=== PATIENT | female | born 1945 | race Caucasian/White ===

== ENCOUNTER 2024-11-24 17:51 | Emergency (ER) | payer MEDICARE, SELFPAY ==
--- OUTSIDE RECORDS SUMMARY | 2016-04-18 11:49 | XMS_ITS | Encounter Summary ---
Author Organization [facility] Address [address] [place] [address] Care Team Providers Care Bridge Instructor Name Role Phone Iron Lynn MD Primary Care Provider + Encounter Details Date Type Department Care Team (Late st Contact Info) Description 04/18/2016 10:49 AM EST Hospital Encounter [facility] PULMONARY & CRITICAL CARE MEDICINE [address] [place] [address] Social History Tobacco Use Types Packs/Day Years Used Date Smoking Tobacco: Former Cigarettes 1 3 0 10/03/1999 - 10/02/2002 Passive Smoke Exposure: Past Smokeless Tobacco: Never Alcohol Use Standard Drinks/Week Comments No 0 (1 standard drink = 0.6 oz pur e alcohol) PHQ-2 Answer Date Recorded Retired PHQ-9: Brief Depression Severity Measure Score 0 02/19/2023 Abuse Screen Answer Date Recorded Feels Unsafe at Home or Work/School no 11/04/2024 Feels Threatened by Someone no 10/08 Does Anyone Try to Keep You From Having Contact with Others or Doing Things Outside Your Home? no 11/04/2024 Physical Signs of Abuse Present no 11/04/2024 Education Answer Date Recorded Help with school or training? Not on file Preferred Language German 11/04/2024 PHQ-2 Answer Date Recorded Retired PHQ-9: Brief Depression Severity Measure Score 0 02/19/2023 Comments No Sex and Gender Information Value Date Recorded Sex Assigned at Not on file Legal Sex Female 10:51 AM EDT Gender Identity Not on file Sexual Orientation Not on file documented as of this encounter Plan of Treatment Upcoming Encounters Date Type Department Care Team (Late st Contact Info) Description 01/25/2025 1:30 PM EDT Office Visit [facility] END[facility]CRINOLOGY [address] [facility] [address] [place] [address] Ahsan Alonso MD [address] [facility] [address] [place], [place] [id number] 10/14/2025 1:30 PM EDT Office Visit [facility] CARDIOLOGY [address] [place] [address] Hima Gonzalez MD [address] [facility] [address] [place] [address] documented as of this encounter Procedures Procedure Name Priority Date/Time Associated Diagnosis Comments XR CHEST PA AND LATERAL Routine 04/18/2016 11:35 AM EST SOB (shortness of breath) documented in this encounter Results * XR Chest PA & Lateral (04/18/2016 11:35 AM EST) Narrative Jasmin Ingram MA - 04/18/2016 12:12 PM EST Results sent to project management consultant, signed report will be scanned into [employer] once available. Please see performing physicians notes. Lynda Durham APRN IMG DIAGNOSTIC IMAGING ORDER ERI Final Result documented in this encounter Visit Diagnoses Not on filedocumented in this encounter Additional Health Concerns Infection Onset Date Last Indicated Resolved Time COVID (rule out) 03/08/2020 03/09/2020 03/15/2020 9:10 PM EST COVID (rule out) 03/10/2021 03/13/2021 03/17/2021 9:08 PM EST documented as of this encounter Care Teams Bridge Instructor Relationship Specialty Start Date End Date Iron Lynn MD [address] [place] [id number] PCP - General 11/18/14 08/11/17 documented as of this encounter
--- OUTSIDE RECORDS SUMMARY | 2018-02-13 10:58 | XMS_ITS | Encounter Summary ---
[facility] Organization [facility] Address [address] [place] [address] Care Team Providers Care Critical Care Specialist Name Role Phone Consuelo Arroyo MD Primary Care Provider + Encounter Details Date Type Department Care Team (Late st Contact Info) Description 02/13/2018 9:58 AM EST Hospital Encounter [facility] PULMONARY & CRITICAL CARE MEDICINE [address] [place] [phone] Social History Tobacco Use Types Packs/Day Years [...] or training? Not on file Preferred Language Stateless 11/04/2024 PHQ-2 Answer Date Recorded Retired PHQ-9: [...] Description 01/25/2025 1:30 PM EDT Office Visit [facility] ENDOCRINOLOGY [address] [facility] [address] [place] [phone] Ahsan Alonso MD [address] [facility] [address] [place], [place] [id number] 10/14/2025 1:30 PM EDT Office Visit [facility] CARDIOLOGY [address] [place] [address] [place] [address] Hima Gonzalez MD [address] [facility] [address] [place] [address] Pending Results Name Type Priority Associated Diagnoses Date /Time XR Chest PA & Lateral Imaging Routine SOB (shortness of breath) 02/13/2018 10:11 AM EST documented as of this encounter Visit Diagnoses Not on filedocumented in this encounter Additional Health Concerns Infection Onset Date Last Indicated Resolved Time COVID (rule out) 03/08/2020 03/09/2020 03/15/2020 9:10 PM EST COVID (rule out) 03/10/2021 03/13/2021 03/17/2021 9:08 PM EST documented as of this encounter Care Teams Critical Care Specialist Relationship Specialty Start Date End Date Consuelo Arroyo MD [address] [place] [id number] PCP - General Internal Medicine 02/13/18 documented as of this encounter
--- OUTSIDE RECORDS SUMMARY | 2019-09-01 14:40 | XMS_ITS | Encounter Summary ---
[facility] Address [address] [place] [address] Care Team Providers Care Coil Winder Repair Name Role Phone Consuelo Arroyo MD Primary Care Provider + Encounter Details Date Type Department Care Team (Late st Contact Info) Description 09/01/2019 2:40 PM EDT Hospital Encounter [facility] PULMONARY & CRITICAL CARE MEDICINE [address] [place] [phone] Social History Tobacco Use Types Packs/Day Years [...] or training? Not on file Preferred Language Japanese 11/04/2024 PHQ-2 Answer Date Recorded Retired PHQ-9: [...] Description 01/25/2025 1:30 PM EDT Office Visit [facility] ENDOCRINOLOGY [address] [facility] [address] [place] [address] Ahsan Alonso MD [address] [facility] [address] [place], [place] [id number] 10/14/2025 1:30 PM EDT Office Visit [facility] CARDIOLOGY [address] [place] [address] [place] [address] Hima Gonzalez MD [address] [facility] [address] [place] [address] documented as of this encounter Procedures Procedure Name Priority Date/Time Associated Diagnosis Comments XR CHEST PA AND LATERAL Routine 09/01/2019 2:50 PM EDT Asthma, unspecified asthma severity, unspecified whether complicated, unspecified whether persistent documented in this encounter Results * XR Chest PA & Lateral (09/01/2019 2:50 PM EDT) Anatomical Region Laterality Modality Body, Chest N/A Radiographic Alaina ging 09/02/2019 9:55 AM EDT Impressions 09/02/2019 5:12 PM EDT No acute cardiopulmonary process. E: 09/02/2019 This report was finalized on 09/02/2019 5:[address] Sanjeev Mcgee. Narrative 09/02/2019 5:12 PM EDT EXAMINATION: XR CHEST PA AND LATERAL- INDICATION: J45.909-Unspecified asthma, uncomplicated. COMPARISON: Chest x-ray dated 02/13/2018. FINDINGS: Cardiac size within normal limits. Pulmonary vascularity within normal limits. No focal opacification or consolidation. No pneumothorax or pleural effusion. Degenerative changes of the spine. Procedure Note Sanjeev Mcgee DO - 09/02/2019 EXAMINATION: XR CHEST PA AND LATERAL- INDICATION: J45.909-Unspecified asthma, uncomplicated. COMPARISON: Chest x-ray dated 02/13/2018. FINDINGS: Cardiac size within normal limits. Pulmonary vascularity within normal limits. No focal opacification or consolidation. No pneumothorax or pleural effusion. Degenerative changes of the spine. IMPRESSION: No acute cardiopulmonary process. E: 09/02/2019 This report was finalized on 09/02/2019 5:[address] Sanjeev Mcgee. Lynda Durham APRN IMG DIAGNOSTIC IMAGING ORDER ERI Final Result documented in this encounter Visit Diagnoses Not on filedocumented in this encounter Additional Health Concerns Infection Onset Date Last Indicated Resolved Time COVID (rule out) 03/08/2020 03/09/2020 03/15/2020 9:10 PM EST COVID (rule out) 03/10/2021 03/13/2021 03/17/2021 9:08 PM EST documented as of this encounter Care Teams Coil Winder Repair Relationship Specialty Start Date End Date Consuelo Arroyo MD [address] [place] [address] PCP - General Internal Medicine 02/13/18 documented as of this encounter
--- OUTSIDE RECORDS SUMMARY | 2021-03-15 13:46 | XMS_ITS | Encounter Summary ---
[facility] Address [address] [place] [address] Care Team Providers Care Production Hand Name Role Phone Consuelo Arroyo MD Primary Care Provider + Encounter Details Date Type Department Care Team (Late st Contact Info) Description 03/15/2021 12:46 PM EST Hospital Encounter [facility] PULMONARY & CRITICAL CARE MEDICINE [address] [place] [phone] Social History Tobacco Use Types Packs/Day Years [...] or training? Not on file Preferred Language Welsh 11/04/2024 PHQ-2 Answer Date Recorded Retired PHQ-9: [...] Description 01/25/2025 1:30 PM EDT Office Visit [facility] ENDOCRINOLOGY [address] [facility] [address] [place] [address] Ahsan Alonso MD [address] [facility] [address] [place], [place] [phone] 10/14/2025 1:30 PM EDT Office Visit [facility] CARDIOLOGY [address] [place] [address] Hima Gonzalez MD [address] [facility] [address] [place] [address] documented as of this encounter Procedures Procedure Name Priority Date/Time Associated Diagnosis Comments XR CHEST PA AND LATERAL Routine 03/15/2021 1:12 PM EST Moderate persistent asthma without complication documented in this encounter Results * XR Chest PA & Lateral (03/15/2021 1:12 PM EST) Anatomical Region Laterality Modality Body, Chest N/A Radiographic Alaina ging 03/16/2021 10:5 1 AM EST Impressions 03/17/2021 3:54 PM EST No acute cardiopulmonary process. E: 03/16/2021 This report was finalized on 03/17/2021 3:[address] Sanjeev Mcgee. Narrative 03/17/2021 3:54 PM EST EXAMINATION: XR CHEST PA AND LATERAL- 03/15/2021 INDICATION: SEE DIAGNOSIS; J45.40-Moderate persistent asthma, uncomplicated COMPARISON: Chest x-ray 09/01/2019 FINDINGS: PA and lateral views of the chest reveal cardiac size within normal limits. Pulmonary vascularity within normal limits. No focal opacification or consolidation. No pneumothorax or pleural effusion. Degenerative changes of the spine. Procedure Note Sanjeev Mcgee DO - 03/17/2021 EXAMINATION: XR CHEST PA AND LATERAL- 03/15/2021 INDICATION: SEE DIAGNOSIS; J45.40-Moderate persistent asthma, uncomplicated COMPARISON: Chest x-ray 09/01/2019 FINDINGS: PA and lateral views of the chest reveal cardiac size within normal limits. Pulmonary vascularity within normal limits. No focal opacification or consolidation. No pneumothorax or pleural effusion. Degenerative changes of the spine. IMPRESSION: No acute cardiopulmonary process. E: 03/16/2021 This report was finalized on 03/17/2021 3:[address] Sanjeev Mcgee. Lynda Durham APRN IMG DIAGNOSTIC IMAGING ORDER ERI Final Result documented in this encounter Visit Diagnoses Not on filedocumented in this encounter Additional Health Concerns Infection Onset Date Last Indicated Resolved Time COVID (rule out) 03/10/2021 03/13/2021 03/17/2021 9:08 PM EST documented as of this encounter Care Teams Production Hand Relationship Specialty Start Date End Date Consuelo Arroyo MD [address] [place] [address] PCP - General Internal Medicine 02/13/18 documented as of this encounter
--- OUTSIDE RECORDS SUMMARY | 2021-08-25 08:39 | XMS_ITS | Encounter Summary ---
[facility] Address [address] [place] [address] Care Team Providers Care Packing Checker Name Role Phone Consuelo Arroyo MD Primary Care Provider + Encounter Details Date Type Department Care Team (Late st Contact Info) Description 08/25/2021 8:39 AM EDT Hospital Encounter [facility] PULMONARY & CRITICAL CARE MEDICINE [address] [place] [phone] Social History Tobacco Use Types Packs/Day Years [...] or training? Not on file Preferred Language Malian 11/04/2024 PHQ-2 Answer Date Recorded Retired PHQ-9: [...] Description 01/25/2025 1:30 PM EDT Office Visit [facility] ENDOCRINOLOG[facility] [address] [facility] [address] [place] [address] Ahsan Alonso MD [address] [facility] [address] [place], [place] [phone] 10/14/2025 1:30 PM EDT Office Visit [facility] CARDIOLOGY [address] [place] [address] [place] [address] Hima Gonzalez MD [address] [facility] [address] [place] [address] documented as of this encounter Procedures Procedure Name Priority Date/Time Associated Diagnosis Comments XR CHEST PA AND LATERAL Routine 08/25/2021 8:44 AM EDT Cough documented in this encounter Results * XR Chest PA & Lateral (08/25/2021 8:44 AM EDT) Anatomical Region Laterality Modality Body, Chest N/A Radiographic Alaina ging 08/25/2021 8:49 AM EDT Impressions 08/25/2021 8:50 AM EDT No acute process. This report was finalized on 08/25/2021 8:50 AM by Amari Boston MD. Narrative 08/25/2021 8:50 AM EDT DATE OF EXAM: 08/25/2021 8:39 AM PROCEDURE: XR CHEST PA AND LATERAL- INDICATIONS: SEE DIAGNOSIS; R05.9-Cough, unspecified COMPARISON: 03/15/2021 TECHNIQUE: PA and lateral views of the chest were obtained. FINDINGS: The cardiomediastinal silhouette is within normal limits. The lungs are clear. There is no pneumothorax, focal consolidation, or large pleural effusion. Osseous structures grossly intact. Small pulmonary nodules better assessed on prior chest CT. Procedure Note Amari Boston MD - 08/25/2021 DATE OF EXAM: 08/25/2021 8:39 AM PROCEDURE: XR CHEST PA AND LATERAL- INDICATIONS: SEE DIAGNOSIS; R05.9-Cough, unspecified COMPARISON: 03/15/2021 TECHNIQUE: PA and lateral views of the chest were obtained. FINDINGS: The cardiomediastinal silhouette is within normal limits. The lungs are clear. There is no pneumothorax, focal consolidation, or large pleural effusion. Osseous structures grossly intact. Small pulmonary nodules better assessed on prior chest CT. IMPRESSION: No acute process. This report was finalized on 08/25/2021 8:50 AM by Amari Boston MD. Lynda Durham FISH AND WILDLIFE BIOLOGIST IMG DIAGNOSTIC IMAGING ORDER ERI Final Result documented in this encounter Visit Diagnoses Not on filedocumented in this encounter Care Teams Packing Checker Relationship Specialty Start Date End Date Consuelo Arroyo MD [address] [place] [address] PCP - General Internal Medicine 02/13/18 documented as of this encounter
--- OUTSIDE RECORDS SUMMARY | 2024-07-02 11:15 | XMS_ITS | Encounter Summary ---
Author Organization [facility] Address [address] [place] [address] Care Team Providers Care Brim Molder Name Role Phone Consuelo Arroyo MD Primary Care Provider + Reason for Visit * Reason Comments BATES (dyspnea on exertion) Patient compla ins of shortness of breath Encounter Details Date Type Department Care Team (Late st Contact Info) Description 07/02/2024 11:15 AM EDT Office Visit [facility] CARDIOLOGY [address] [place] [address] Hima Gonzalez MD [address] [facility] [address] [place] [address] BATES (dyspnea on exertion) (Primary Dx); Dyslipidemia; Localized edema; Type 2 diabetes mellitus with complication, with long-term current use of insulin; IgG1 subclass deficiency Social History Tobacco Use Types Packs/Day Years Used Date Smoking Tobacco: Former Cigarettes 1 3 0 10/03/1999 - 10/02/2002 Passive Smoke Exposure: Past Smokeless Tobacco: Never Alcohol Use Standard Drinks/Week Comments No 0 (1 standard drink = 0.6 oz pur e alcohol) PHQ-2 Answer Date Recorded Retired PHQ-9: Brief Depression Severity Measure Score 0 02/19/2023 PHQ-2 Answer Date Recorded Retired PHQ-9: Brief Depression Severity Measure Score 0 02/19/2023 Comments No Sex and Gender Information Value Date Recorded Sex Assigned at Not on file Legal Sex Female 10:51 AM EDT Gender Identity Not on file Sexual Orientation Not on file documented as of this encounter Last Filed Vital Signs Vital Sign Reading Time Taken Comments Blood Pressure 124/60 07/02/2024 11:24 AM EDT Pulse 70 07/02/2024 11:24 AM EDT Temperature - - Respiratory Rate - - Oxygen Saturation 98% 07/02/2024 11:24 AM EDT Inhaled Oxygen Concentration - - Weight 74.4 kg (164 lb) 07/02/2024 11:24 AM EDT Height 162.6 cm (5' 4 ) 07/02/2024 11:24 AM EDT Body Mass Index 28.15 07/02/2024 11:24 AM EDT documented in this encounter Progress Notes * Hima Gonzalez MD - 07/02/2024 11:15 AM EDT [facility] Cardiology Office Progress Note Lili Soraya Nina 1945 [address] [place] [address] Visit Date: 07/02/24 PCP: Consuelo Arroyo MD [address] [place] [address] IDENTIFICATION: A 78 y.o. female . Retired 1999 from [employer] in [place]. PROBLEM LIST: CP 07/15/[address] [facility] [address]. Quintana normal coronaries, normal EF, normal hemodynamics 2012 echo: EF 75%, severe concentric LVH 2013 echo: EF 65%, mild to moderate MR, significant improvement from previous echo with significantregression of the severe LVH 2014 [facility] [place]: EF 56%, AV sclerosis without stenosis, mild MR, trace TR 09/23 MPS [place]: No myocardial ischemia, normal EF, normal wall motion Diastolic CHF? 09/2017 dx w acute CHF [facility]? 09/23 echo [facility] mild LVH EF 65% nl pulmonary pressures 01/28 echo EF >55% rvsp 20 AV scler 05/02 bnp 300 Palpitations Holter, occasional PVCs/PACs, idb HTN T2DM Dx ~ 2008, insulin since ~ 2015 - Per Dr. 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 Weaned off steroids spring 2018 Ig deficiencies IgG1, IgG3, IgA CLL- Dr Meaghan Byrnes [facility] CKD-creatinine greater than 2 03/31 in setting of dehydration Hypothyroidism GERD Surgical history: Wrist surgery Tonsillectomy Subtotal thyroidectomy Dental implants, gum graft Laryngoscopy Bronchoscopy 2020 laparoscopic abdominal surgery CC: Chief Complaint Patient presents with BATES (dyspnea on exertion) Patient complains of shortness of breath Allergies Allergies Allergen Reactions Bactrim [Sulfamethoxazole-Trimethoprim] Other (See Comments) Pancytopenia Current Medications Current Outpatient Medications: albuterol (PROVENTIL) (2.5 MG/3ML) 0.083% nebulizer solution, Take 2.5 mg by nebulization Every 4 (Four) Hours As Needed., Disp: , Rfl: aspirin 81 MG chewable tablet, Chew 1 tablet Daily., Disp: , Rfl: BD Pen Needle Jeanette 2nd Gen 32G X 4 MM misc, USE FOUR TIMES DAILY, Disp: 400 each, Rfl: 3 Ajrgzbf-Jkebvoodkwa-Pzyaxeeewf (BREZTRI) 160-9-4.8 MCG/ACT aerosol inhaler, Inhale 2 puffs 2 (Two) Times a Day., Disp: 1 each, Rfl: 11 cefdinir (OMNICEF) 300 MG capsule, Take 1 capsule by mouth Every 12 (Twelve) Hours., Disp: , Rfl: Cholecalciferol (Vitamin D3) 50 MCG (2000 UT) tablet, Take 1 tablet by mouth Daily., Disp: , Rfl: escitalopram (LEXAPRO) 20 MG tablet, TAKE 1 TABLET BY MOUTH EVERY DAY, Disp: 90 tablet, Rfl: 3 Hydrocod Sathish-Chlorphe Sathish ER (TUSSIONEX PENNKINETIC) 10-8 MG/5ML ER suspension, Take 5 mL by mouth Every 12 (Twelve) Hours As Needed., Disp: , Rfl: insulin aspart (NovoLOG FlexPen) 100 UNIT/ML solution pen-injector sc pen, 7 units tid with meals, Disp: 27 mL, Rfl: 1 Insulin Glargine (Lantus SoloStar) 100 UNIT/ML injection pen, ADMINISTER 15 UNITS UNDER THE SKIN DAILY, Disp: 15 mL, Rfl: 2 Insulin Pen Needle 32G X 6 MM misc, Use 1 each 4 (Four) Times a Day., Disp: 100 each, Rfl: 5 lisinopril (PRINIVIL,ZESTRIL) 10 MG tablet, Take 1 tablet by mouth Daily., Disp: 90 tablet, Rfl: 3 Magnesium Oxide 400 (240 Mg) MG tablet, Take 1 tablet by mouth Daily., Disp: , Rfl: nebivolol (BYSTOLIC) 10 MG tablet, Take 1 tablet by mouth Daily., Disp: 90 tablet, Rfl: 3 omeprazole (priLOSEC) 40 MG capsule, Take 1 capsule by mouth Daily., Disp: , Rfl: rosuvastatin (CRESTOR) 20 MG tablet, Take 1 tablet by mouth Daily., Disp: 90 tablet, Rfl: 3 vitamin B-12 (CYANOCOBALAMIN) 1000 MCG tablet, Take 1 tablet by mouth Daily., Disp: , Rfl: levothyroxine (SYNTHROID, LEVOTHROID) 100 MCG tablet, Take 1 tablet by mouth., Disp: , Rfl: History of Present Illness Lili Nina is a 78 y.o. year old female here for follow up. Admitted at OSH due to DKA. She now has a Dexcom monitor and has better blood sugar control OBJECTIVE: Vitals: 07/02/24 1124 BP: 124/60 Pulse: 70 SpO2: 98% Weight: 74.4 kg (164 lb) Height: 162.6 cm (64 ) Body mass index is 28.15 kg/m??. Constitutional: Appearance: Healthy appearance. Not in distress. Neck: Vascular: No JVR. JVD normal. Pulmonary: Breath sounds: Wheezing present. No rhonchi. Rales present. Chest: Chest wall: Not tender to palpatation. Cardiovascular: PMI at left midclavicular line. Normal rate. Regular rhythm. Normal S1. Normal S2. Murmurs: There is no murmur. No gallop. No click. No rub. Pulses: Intact distal pulses. Edema: Peripheral edema absent. Abdominal: General: Bowel sounds are normal. Palpations: Abdomen is soft. Tenderness: There is no abdominal tenderness. Musculoskeletal: Normal range of motion. General: No tenderness. Skin: General: Skin is warm and dry. Neurological: General: No focal deficit present. Mental Status: Alert and oriented to person, place and time. Diagnostic Data: Procedures ASSESSMENT: Diagnosis Plan 1. BATES (dyspnea on exertion) 2. Dyslipidemia rosuvastatin (CRESTOR) 20 MG tablet 3. Localized edema lisinopril (PRINIVIL,ZESTRIL) 10 MG tablet 4. Type 2 diabetes mellitus with complication, with long-term current use of insulin lisinopril (PRINIVIL,ZESTRIL) 10 MG tablet 5. IgG1 subclass deficiency lisinopril (PRINIVIL,ZESTRIL) 10 MG tablet PLAN: Dyspnea multifactorial historical no obstructive coronary disease preserved LV function documented LVEF/filling pressures given orthopnea Hypertension controlled Bystolic lisinopril Dyslipidemia on statin therapy with LDL to be documented per hunting and fishing guide upcoming visit Diabetes on insulin followed per endocrinology with A1c above 14 per last visit with reiterated need for compliance and close follow-up with endocrinology 10/14/24: Per [facility] ER was noted patient in ER with dizziness had A-fib with heart rate of 70. She was going to be committed to Eliquis 5 twice daily with follow-up Hima Gonzalez MD, FACC documented in this encounter Plan of Treatment Upcoming Encounters Date Type Department Care Team (Late st Contact Info) Description 01/25/2025 1:30 PM EDT Office Visit [facility] ENDOCR[facility]OLOG[facility] [address] [facility] [address] [place] [address] Ahsan Alonso MD [address] [facility] [address] [place] [address] 10/14/2025 1:30 PM EDT Office Visit [facility] CARDIOLOGY [address] [place] [place] [address] Hima Gonzalez MD [address] [facility] [address] [place] [address] documented as of this encounter Visit Diagnoses Diagnosis BATES (dyspnea on exertion)- Primary Other dyspnea and respiratory abnormality Dyslipidemia Other and unspecified hyperlipidemia Localized edema Edema Type 2 diabetes mellitus with complication, with long-term current use of insulin IgG1 subclass deficiency documented in this encounter Care Teams Brim Molder Relationship Specialty Start Date End Date Consuelo Arroyo MD [address] [place] [address] PCP - General Internal Medicine 02/13/18 documented as of this encounter
--- OUTSIDE RECORDS SUMMARY | 2024-07-23 12:07 | XMS_ITS | Encounter Summary ---
Author Organization [facility] Address [address] [place] [address] Care Team Providers Care Engineering Documentation Specialist Name Role Phone Consuelo Arroyo MD Primary Care Provider + Encounter Details Date Type Department Care Team (Late st Contact Info) Description 07/23/2024 12:07 PM EDT Hospital Encounter [facility] PULMONARY & CRITICAL CARE MEDICINE [address] [place] [id number] Social History Tobacco Use Types Packs/Day Years [...] or training? Not on file Preferred Language Greenlandic 11/04/2024 PHQ-2 Answer Date Recorded Retired PHQ-9: [...] Description 01/25/2025 1:30 PM EDT Office Visit [facility] ENDOCRINOLOGY [address] [facility] [address] [place] [phone] Ahsan Alonso MD [address] [facility] [address] [place], [place] [id number] 10/14/2025 1:30 PM EDT Office Visit [facility] CARDIOLOGY [address] [place] [address] [address] [place] [address] Hima Gonzalez MD [address] [facility] [address] [place] [address] documented as of this encounter Procedures Procedure Name Priority Date/Time Associated Diagnosis Comments XR CHEST PA AND LATERAL Routine 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 Trace pleural effusions. Electronically Signed: Wilmer Friedman MD 07/28/2024 3:56 PM EDT Workstation ID: [id number] Narrative 07/28/2024 3:56 PM EDT XR CHEST PA AND LATERAL Date of Exam: 07/23/2024 12:07 PM EDT Indication: Churg-Britni syndrome Comparison: Chest CT same date, chest radiograph 08/25/2021. Findings: Cardiomediastinal silhouette is unchanged. Subtle opacity in the right upper lobe corresponds to enlarging groundglass nodule seen/described on same-day CT. No focal airspace consolidation otherwise. Trace pleural effusions. No pneumothorax. Osseous structures are unchanged. Procedure Note Wilmer Friedman MD - 07/28/2024 XR CHEST PA AND LATERAL Date of Exam: 07/23/2024 12:07 PM EDT Indication: Churg-Britni syndrome Comparison: Chest CT same date, chest radiograph 08/25/2021. Findings: Cardiomediastinal silhouette is unchanged. Subtle opacity in the rightupper lobe corresponds to enlarging groundglass nodule seen/described onsame-day CT. No focal airspace consolidation otherwise. Trace pleuraleffusions. No pneumothorax. Osseous structures are unchanged. IMPRESSION: Impression: Subtle opacity in the right upper lobe corresponds to enlarginggroundglass nodule seen/described on same-day CT; please reference thatreport. Trace pleural effusions. Electronically Signed: Wilmer Friedman MD 07/28/2024 3:56 PM EDT Workstation ID: [id number] Lynda Durham APRN IMG DIAGNOSTIC IMAGING ORDER ERI Final Result documented in this encounter Visit Diagnoses Not on filedocumented in this encounter Care Teams Engineering Documentation Specialist Relationship Specialty Start Date End Date Consuelo Arroyo MD [address] [place] [address] PCP - General Internal Medicine 02/13/18 documented as of this encounter
--- OUTSIDE RECORDS SUMMARY | 2024-11-02 16:10 | XMS_ITS | Encounter Summary ---
Author Organization [facility] Address [address] [place] [address] Care Team Providers Care Business Development Assistant Name Role Phone Consuelo Arroyo MD Primary Care Provider + Reason for Visit * Monitoring (Routine) - Closed Specialty Diagnoses / Procedures Referred By Contac t Referred To Contact Cardiology Diagnoses Permanent atrial fibrillation Procedures Holter Monitor - 48 Hour Shyanne Tinajero, KJ [address] [facility] [address] [place] [address] Phone: tel: fax: [facility] CARDIOLOGY [address] [facility] [address] [place] [phone] Phone: tel: fax: Referral ID Status Reason Start Date Expiration Date Visits Re quested Visits Authorized [id number] Closed 10/28/2024 01/27/2026 1 1 Encounter Details Date Type Department Care Team (Latest Contact Info) Description 11/02/2024 4:10 PM EDT Ancillary Procedure [facility] [address] [facility] [address] [place] [phone] Permanent atrial fibrillation Social History Tobacco Use Types Packs/Day Years [...] 1:30 PM EDT Office Visit [facility] ENDOCRINOLOGY [address] [facility] [address] [place] [phone] Ahsan Alonso MD [address] [facility] [address] [place] [address] 10/14/2025 1:30 PM EDT Office Visit [facility] C[facility] [address] [place] [address] [place] [address] Hima Gonzalez MD [address] [facility] [address] [place], [place] [phone] Pending Results Name Type Priority Associated Diagnoses Date /Time Holter Monitor - 48 Hour Cardiac Services Routine Permanent atrial fibrillation 11/02/2024 4:07 PM EDT documented as of this encounter Visit Diagnoses Diagnosis Permanent atrial fibrillation Atrial fibrillation documented in this encounter Care Teams Business Development Assistant Relationship Specialty Start Date End Date Consuelo Arroyo MD [address] [place] [address] PCP - General Internal Medicine 02/13/18 documented as of this encounter
--- OUTSIDE RECORDS SUMMARY | 2024-11-04 11:18 | XMS_ITS | Encounter Summary ---
Author Organization [facility] Address [address] [place] [address] Care Team Providers Care Coach Mechanic Name Role Phone Consuelo Arroyo MD Primary Care Provider + Reason for Referral * MRI/CAT/PET Scan (Routine) - Closed Specialty Diagnoses / Procedures Referred By Contac t Referred To Contact Radiology Diagnoses Right upper lobe pulmonary nodule Procedures CT Chest Without Contrast Wayne Person MD [address] [place] [address] Phone: tel: fax: [address] [phone] Phone: tel: Referral ID Status Reason Start Date Expiration Date Visits Re quested Visits Authorized [id number] Closed 10/06/2024 01/05/2026 1 1 Reason for Visit * MRI/CAT/PET Scan (Routine) - Closed Specialty Diagnoses / Procedures Referred By Contac t Referred To Contact Radiology Diagnoses Right upper lobe pulmonary nodule Procedures CT Chest Without Contrast Wayne Person MD [address] [place] [address] Phone: tel: fax: [address] [phone] Phone: tel: Referral ID Status Reason Start Date Expiration Date Visits Re quested Visits Authorized [id number] Closed 10/06/2024 01/05/2026 1 1 Encounter Details Date Type Department Care Team (Latest Contact Info) Description 11/04/2024 11:18 AM EDT - 11/04/2024 11:59 PM EDT Hospital Encounter [facility] AT [address] [place] [phone] Right upper lobe pulmonary nodule Discharge Disposition: Home or Self Care Social History Tobacco Use Types Packs/Day Years [...] or training? Not on file Preferred Language Palauan 11/04/2024 PHQ-2 Answer Date Recorded Retired PHQ-9: Brief Depression Severity Measure Score 0 02/19/2023 Comments No Sex and Gender Information Value Date Recorded Sex Assigned at Not on file Legal Sex Female 10:51 AM EDT Gender Identity Not on file Sexual Orientation Not on file documented as of this encounter Medications at Time of Discharge albuterol (PROVENTIL) (2.5 MG/3ML) 0.083% nebulizer solution Take 2.5 mg by nebulization Every 4 (Four) Hours As Needed for Wheezing or Shortness of Air. 06/03/2017 apixaban (ELIQUIS) 5 MG tablet tablet Take 1 tablet by mouth 2 (Two) Times a Day. Patient instructed to hold 3 days prior to bronch aspirin 81 MG chewable tablet Chew 1 tablet Daily. BD Pen Needle Jeanette 2nd Gen 32G X 4 MM misc USE FOUR TIMES DAILY 400 each 3 06/18/2024 Budeson-Glycopyrro l-Formoterol (BREZTRI) 160-9-4.8 MCG/ACT aerosol inhaler Inhale 2 puffs 2 (Two) Times a Day. 1 each 11 07/23/2024 Cholecalciferol (Vitamin D3) 50 MCG (2000 UT) tablet Take 1 tablet by mouth Daily. 08/03/2022 escitalopram (LEXAPRO) 20 MG tablet TAKE 1 TABLET BY MOUTH EVERY DAY 90 tablet 3 02/22/2021 ferrous sulfate 325 (65 FE) MG tablet Take 1 tablet by mouth Daily With Breakfast. insulin aspart (NovoLOG FlexPen) 100 UNIT/ML solution pen-injector sc penIndications:Unc ontrolled type 2 diabetes mellitus with hyperglycemia 7 units tid with meals 27 mL 1 09/01/2024 Insulin Glargine (Lantus SoloStar) 100 UNIT/ML injection pen ADMINISTER 15 UNITS UNDER THE SKIN DAILY 15 mL 2 09/01/2024 Insulin Pen Needle 32G X 6 MM miscIndications:Un controlled type 2 diabetes mellitus with hyperglycemia Use 1 each 4 (Four) Times a Day. 100 each 5 05/14/2024 lisinopril (PRINIVIL,ZESTRIL) 10 MG tabletIndications: Localized edema,Type 2 diabetes mellitus with complication, with long-term current use of insulin,IgG1 subclass deficiency Take 1 tablet by mouth Daily. 90 tablet 3 07/02/2024 Magnesium Oxide 400 (240 Mg) MG tablet Take 1 tablet by mouth Daily. 08/03/2022 mepolizumab (Nucala) 100 MG reconstituted solution injectionIndicatio ns:Moderate persistent asthma without complication Inject 100 mg under the skin into the appropriate area as directed Every 28 (Twenty-Eight) Days. 1 each 10/27/2024 nebivolol (BYSTOLIC) 10 MG tablet Take 1 tablet by mouth Daily. 90 tablet 3 07/02/2024 omeprazole (priLOSEC) 40 MG capsule Take 1 capsule by mouth Daily. 07/31/2017 rosuvastatin (CRESTOR) 20 MG tabletIndications: Dyslipidemia Take 1 tablet by mouth Daily. Please obtain annual lipid panel 30 tablet 3 10/08/2024 vitamin B-12 (CYANOCOBALAMIN) 1000 MCG tablet Take 1 tablet by mouth Daily. 08/03/2022 documented as of this encounter Plan of Treatment Upcoming Encounters Date Type Department Care Team (Late st Contact Info) Description 01/25/2025 1:30 PM EDT Office Visit [facility] ENDOCRINOLOGY [address] [facility] [address] [place] [address] Ahsan Alonso MD [address] [facility] [address] [place], [place] [id number] 10/14/2025 1:30 PM EDT Office Visit [facility] CARDIOLOGY [address] [place] [address] [place] [address] Hima Gonzalez MD [address] [facility] [address] [place] [address] documented as of this encounter Procedures Procedure Name Priority Date/Time Associated Diagnosis Comments CT CHEST WO CONTRAST DIAGNOSTIC Routine 11/04/2024 11:33 AM EDT Right upper lobe pulmonary nodule documented in this encounter Results * CT Chest Without Contrast Diagnostic (11/04/2024 11:33 AM EDT) Anatomical Region Laterality Modality Chest N/A Computed Tomogra phy 11/08/2024 2:03 PM EDT Impressions 11/08/2024 2:09 PM EDT Impression: 1. Stable 2.8 cm heterogeneous groundglass nodule in the right upper lobe, recommend tissue sampling to exclude adenocarcinoma in situ/low-grade malignancy given gradual growth from more remote comparison exams. 2. Stable 7 mm left upper lobe pulmonary nodule, unchanged from prior studies. 3. No new or enlarging pulmonary nodule. 4. Coronary atherosclerotic disease and additional chronic findings above.. Electronically Signed: Amari Boston MD 11/08/2024 2:09 PM EDT Workstation ID: [id number] Narrative 11/08/2024 2:[address] CHEST WO CONTRAST DIAGNOSTIC Date of Exam: 11/04/2024 11:22 AM EDT Indication: BRONCHOSCOPY WITH ROBOTIC PROTOCOL. Right upper lobe pulmonary nodule Comparison: 08/28/2024, 07/23/2024 Technique: Axial CT images were obtained of the chest without contrast administration. Reconstructed coronal and sagittal images were also obtained. Automated exposure control and iterative construction methods were used. Findings: Visualized soft tissues of the lower neck are without acute abnormality. Mild cardiomegaly. Coronary atherosclerotic calcifications noted. Small linear fluid in the superior pericardial recess. No mediastinal or hilar adenopathy. Negative for axillary adenopathy. Trace right pleural effusion. No left effusion. The trachea and mainstem bronchi are patent. Within the right upper lobe there is redemonstration of a heterogeneous groundglass area of nodularity which measures 2.8 x 1.7 cm similar to the prior exam (). Nodule with calcification of the medial left upper lobe compatible granuloma measuring 6 mm. Stable nodule at the left upper lobe measuring 7 mm (). This is stable from 2022. Mild linear atelectasis at the right middle lobe. No new pulmonary nodule. No pneumothorax. No findings of pneumonia. Upper abdomen demonstrates no acute abnormality of the visualized portions of the liver, spleen, adrenal glands, or pancreas. No free fluid in the upper abdomen. No aggressive osseous lesion or acute fracture. Procedure Note Mouser, Amari Mendoza MD - 11/08/2024 CT CHEST WO CONTRAST DIAGNOSTIC Date of Exam: 11/04/2024 11:22 AM EDT Indication: BRONCHOSCOPY WITH ROBOTIC PROTOCOL. Right upper lobe pulmonarynodule Comparison: 08/28/2024, 07/23/2024 Technique: Axial CT images were obtained of the chest without contrastadministration. Reconstructed coronal and sagittal images were alsoobtained. Automated exposure control and iterative construction methodswere used. Findings: Visualized soft tissues of the lower neck are without acute abnormality.Mild cardiomegaly. Coronary atherosclerotic calcifications noted. Smalllinear fluid in the superior pericardial recess. No mediastinal or hilaradenopathy. Negative for axillary adenopathy. Trace right pleural effusion. No left effusion. The trachea and mainstem bronchi are patent. Within the right upper lobethere is redemonstration of a heterogeneous groundglass area of nodularitywhich measures 2.8 x 1.7 cm similar to the prior exam (). Nodule withcalcification of the medial left upper lobe compatible granuloma measuring 6 mm. Stable nodule at the leftupper lobe measuring 7 mm (2/181). This is stable from 2022. Mild linearatelectasis at the right middle lobe. No new pulmonary nodule. Nopneumothorax. No findings of pneumonia. Upper abdomen demonstrates no acute abnormality of the visualized portionsof the liver, spleen, adrenal glands, or pancreas. No free fluid in theupper abdomen. No aggressive osseous lesion or acute fracture. IMPRESSION: Impression: 1. Stable 2.8 cm heterogeneous groundglass nodule in the right upper lobe,recommend tissue sampling to exclude adenocarcinoma in situ/low-grademalignancy given gradual growth from more remote comparison exams. 2. Stable 7 mm left upper lobe pulmonary nodule, unchanged from priorstudies. 3. No new or enlarging pulmonary nodule. 4. Coronary atherosclerotic disease and additional chronic findingsabove.. Electronically Signed: Amari Boston MD 11/08/2024 2:09 PM EDT Workstation ID: [id number] Wayne Person MD IMG CT ORDERABLES Final Result documented in this encounter Visit Diagnoses Diagnosis Right upper lobe pulmonary nodule documented in this encounter Care Teams Coach Mechanic Relationship Specialty Start Date End Date Consuelo Arroyo MD [address] [place] [address] PCP - General Internal Medicine 02/13/18 documented as of this encounter
--- OUTSIDE RECORDS SUMMARY | 2024-11-04 12:30 | XMS_ITS | Encounter Summary ---
[facility] Address [address] [place] [address] Care Team Providers Care Laboratory Helper Name Role Phone Consuelo Arroyo MD Primary Care Provider + Encounter Details Date Type Department Care Team (Latest Contact Info) Description 11/04/2024 12:30 PM EDT Pre-Admission Testing [facility] T [address] [place] [address] Right upper lobe pulmonary nodule Social History Tobacco Use Types Packs/Day Years [...] or training? Not on file Preferred Language British 11/04/2024 PHQ-2 Answer Date Recorded Retired PHQ-9: Brief Depression Severity Measure Score 0 02/19/2023 Comments No Sex and Gender Information Value Date Recorded Sex Assigned at Not on file Legal Sex Female 10:51 AM EDT Gender Identity Not on file Sexual Orientation Not on file documented as of this encounter Last Filed Vital Signs Vital Sign Reading Time Taken Comments Blood Pressure - - Pulse - - Temperature - - Respiratory Rate - - Oxygen Saturation - - Inhaled Oxygen Concentration - - Weight 82.6 kg (181 lb 15.8 oz) 025 12:34 PM EDT Height 162.6 cm (5' 4 ) 11/04/2024 12:3 4 PM EDT Body Mass Index 31.24 11/04/2024 12:34 PM EDT documented in this encounter OR Notes * PAT - Naman Cano RN - 11/04/2024 12:30 PM EDT An arrival time for procedure was not provided during PAT visit. If patient had any questions or concerns about their arrival time, they were instructed to contact their surgeon/physician. Additionally, if the patient referred to an arrival time that was acquired from their my chart account, patient was encouraged to verify that time with their surgeon/physician. Arrival times are NOT provided inPre Admission Testing Department. Per Anesthesia Request, patient instructed not to take their JENNA/ARB medications on the AM of surgery. Patient denies any current skin issues. BT statement on chart form 10/15/24. EKG on chart from 06/29/24, patient denies chest pain and increased shortness of breath. documented in this encounter Plan of Treatment Upcoming Encounters Date Type Department Care Team (Late st Contact Info) Description 01/25/2025 1:30 PM EDT Office Visit [facility] [address] [facility] [address] [place] [id number] Ahsan Alonso MD [address] [facility] [address] [place] [address] 10/14/2025 1:30 PM EDT Office Visit [facility] [address] [place] [address] [place] [address] Hima Gonzalez MD [facility] [place] [address] documented as of this encounter Procedures Procedure Name Priority Date/Time Associated Diagnosis Comments CBC WITH AUTO DIFFERENTIAL Routine 11/04/2024 12:06 PM EDT Right upper lobe pulmonary nodule MANUAL DIFFERENTIAL STAT 11/04/2024 1 2:06 PM EDT Right upper lobe pulmonary nodule APTT Routine 11/04/2024 12:06 PM EDT Right upper lobe pulmonary nodule PROTIME-INR Routine 11/04/2024 12:06 PM EDT Right upper lobe pulmonary nodule CBC AND DIFFERENTIAL Routine 11/04/2024 12:06 PM EDT Right upper lobe pulmonary nodule COMPREHENSIVE METABOLIC PANEL Routine 11/04/2024 12:06 PM EDT Right upper lobe pulmonary nodule documented in this encounter Results * (ABNORMAL) Manual Differential (11/04/2024 12:06 PM EDT) Neutrophil % 18.0(L) 42.7 - 76.0 % 11/04/2024 1:18 PM EDT [facility] Lymphocyte % 69.0(H) 19.6 - 45.3 % 11/04/2024 1:18 PM EDT [facility] Monocyte % 2.0(L) 5.0 - 12.0 % 11/04/2024 1:18 PM EDT [facility] Eosinophil % 0.0(L) 0.3 - 6.2 % 11/04/2024 1:18 PM EDT [facility] Basophil % 0.0 0.0 - 1.5 % 11/04/2024 1:18 PM EDT [facility] Atypical Lymphocyte % 11.0(H) 0.0 - 5.0 % 11/04/2024 1:18 PM EDT [facility] Neutrophils Absolute 3.67 1.70 - 7.00 10*3/mm3 11/04/2024 1:18 PM EDT [facility] Lymphocytes Absolute 16.33(H) 0.70 - 3.10 10*3/mm3 11/04/2024 1:18 PM EDT [facility] Monocytes Absolute 0.41 0.10 - 0.90 10*3/mm3 11/04/2024 1:18 PM EDT [facility] Eosinophils Absolute 0.00 0.00 - 0.40 10*3/mm3 11/04/2024 1:18 PM EDT [facility] Basophils Absolute 0.00 0.00 - 0.20 10*3/mm3 11/04/2024 1:18 PM EDT [facility] RBC Morphology Normal Normal 11/04/2024 1:18 PM EDT [facility] WBC Morphology Normal Normal 11/04/2024 1:18 PM EDT [facility] Platelet Morphology Normal Normal 11/04/2024 1:18 PM EDT [facility] Blood Venipuncture / Unknown 11/04/2024 12:06 PM EDT 11/04/2024 12:46 PM EDT Wayne Person MD LAB BLOOD ORDERABLES Fi nal Result [facility]
[address] [place] [address], * (ABNORMAL) CBC Auto Differential (11/04/2024 12:06 PM EDT) WBC 20.41(H) 3.40 - 10.80 10*3/mm3 11/04/2024 1:18 PM EDT [facility] RBC 4.14 3.77 - 5.28 10*6/mm3 11/04/2024 1:18 PM EDT [facility] Hemoglobin 11.0(L) 12.0 - 15.9 g/dL 11/04/2024 1:18 PM EDT [facility] Hematocrit 34.9 34.0 - 46.6 % 11/04/2024 1:18 PM EDT [facility] MCV 84.3 79.0 - 97.0 fL 11/04/2024 1:18 PM EDT [facility] MCH 26.6 26.6 - 33.0 pg 11/04/2024 1:18 PM EDT [facility] MCHC 31.5 31.5 - 35.7 g/dL 11/04/2024 1:18 PM EDT [facility] RDW 14.7 12.3 - 15.4 % 11/04/2024 1:18 PM EDT [facility] RDW-SD 45.0 37.0 - 54.0 fl 11/04/2024 1:18 PM EDT [facility] MPV 10.2 6.0 - 12.0 fL 11/04/2024 1:18 PM EDT [facility] Platelets 123(L) 140 - 450 10*3/mm3 11/04/2024 1:18 PM EDT [facility] Blood Venipuncture / Unknown 11/04/2024 12:06 PM EDT 11/04/2024 12:46 PM EDT Wayne Person MD LAB BLOOD ORDERABLES Fi nal Result [facility]
[address] [place] [address], * APTT (11/04/2024 12:06 PM EDT) PTT 28.7 22.0 - 39.0 seconds 11/04/2024 1:02 PM EDT [facility] Blood Venipuncture / Unknown 11/04/2024 12:06 PM EDT 11/04/2024 12:46 PM EDT Narrative [facility] - 11/04/2024 1:02 PM EDT PTT = The equivalent PTT values for the therapeutic range of heparin levels at 0.3 to 0.5 U/ml are 60 to 70 seconds. Wayne Person MD LAB BLOOD ORDERABLES Fi nal Result Performing Organization Address [facility] Co de Phone Number [facility]
[address] [place] [address], * (ABNORMAL) Protime-INR (11/04/2024 12:06 PM EDT) Pathologist [facility] Protime 15.3 12.2 - 15.3 Seconds 11/04/2024 1:02 PM EDT [facility] INR 1.14(H) 0.89 - 1.12 11/04/2024 1:02 PM EDT [facility] Blood Venipuncture / Unknown 11/04/2024 12:06 PM EDT 11/04/2024 12:46 PM EDT Wayne Person MD LAB BLOOD ORDERABLES Fi nal Result Performing Organization Address [facility] de Phone Number [facility]
[address] [place] [address], * (ABNORMAL) Comprehensive Metabolic Panel (11/04/2024 12:06 PM EDT) Glucose 248(H) 65 - 99 mg/dL 11/04/2024 1:11 PM EDT [facility] BUN 23.1(H) 8.0 - 23.0 mg/dL 11/04/2024 1:11 PM EDT [facility] Creatinine 1.20(H) 0.57 - 1.00 mg/dL 11/04/2024 1:11 PM EDT [facility] Sodium 136 136 - 145 mmol/L 11/04/2024 1:11 PM EDT [facility] Potassium 4.1 3.5 - 5.2 mmol/L 11/04/2024 1:11 PM EDT [facility] Chloride 103 98 - 107 mmol/L 11/04/2024 1:11 PM EDT [facility] CO2 22.7 22.0 - 29.0 mmol/L 11/04/2024 1:11 PM EDT [facility] Calcium 9.1 8.6 - 10.5 mg/dL 11/04/2024 1:11 PM EDT [facility] Total Protein 6.3 6.0 - 8.5 g/dL 11/04/2024 1:11 PM EDT [facility] Albumin 3.7 3.5 - 5.2 g/dL 11/04/2024 1:11 PM EDT [facility] ALT (SGPT) 55(H) 1 - 33 U/L 11/04/2024 1:11 PM EDT [facility] AST (SGOT) 41(H) 1 - 32 U/L 11/04/2024 1:11 PM EDT [facility] Alkaline Phosphatase 233(H) 39 - 117 U/L 11/04/2024 1:11 PM EDT [facility] Total Bilirubin 0.5 0.0 - 1.2 mg/dL 11/04/2024 1:11 PM EDT [facility] Globulin 2.6 gm/dL 11/04/2024 1:11 PM T [facility] Comment:Calculated Result A/G Ratio 1.4 g/dL 11/04/2024 1:11 PM T [facility] BUN/Creatinine Ratio 19.3 7.0 - 25.0 11/04/2024 1:11 PM EDT [facility] Anion Gap 10.3 5.0 - 15.0 mmol/L 11/04/2024 1:11 PM [facility] eGFR 46.7(L) >60.0 mL/min/1.7 3 11/04/2024 1:11 PM [facility] Blood Venipuncture / Unknown 11/04/2024 12:06 PM EDT 11/04/2024 12:46 PM EDT [facility] - 11/04/2024 1:11 PM EDT GFR Categories in Chronic Kidney Disease (CKD) GFR Category GFR (mL/min/1.73) Interpretation G1 90 or greater Normal or high (1) G2 60-89 Mild decrease (1) G3a 45-59 Mild to moderate decrease G3b 30-44 Moderate to severe decrease G4 15-29 Severe decrease G5 14 or less Kidney failure (1)In the absence of evidence of kidney disease, neither GFR category G1 or G2 fulfill the criteria for CKD. eGFR calculation 2020 CKD-EPI creatinine equation, which does not include race as a factor us Wayne Person MD LAB BLOOD ORDERABLES Fi nal Result [facility]
[address] [place] [address], documented in this encounter Visit Diagnoses Diagnosis Right upper lobe pulmonary nodule documented in this encounter Care Teams Laboratory Helper Relationship Specialty Start Date End Date Consuelo Arroyo MD [address] [place] [address] PCP - General Internal Medicine 02/13/18 documented as of this encounter
--- OUTSIDE RECORDS SUMMARY | 2024-11-11 06:30 | XMS_ITS | Encounter Summary ---
Author Organization [facility] Address [address] [place] [address] Care Team Providers Care Mass Spectrometry Manager Name Role Phone Consuelo Arroyo MD Primary Care Provider + Reason for Visit * Auth/Cert Specialty Diagnoses / Procedures Referred By Contac t Referred To Contact Diagnoses Right upper lobe pulmonary nodule Right upper lobe pulmonary nodule [R91.1] Procedures [place] BRONCHOSCOPY W/CPTR-ASST IMAGE-GUIDED NAVIGATION BRONCHOSCOPY NAVIGATION WITH ENDOBRONCHIAL ULTRASOUND AND ION ROBOT Referral ID Status Reason Start Date Expiration Date Visits Re quested Visits Authorized [id number] 1 1 Encounter Details Date Type Department Care Team (Late st Contact Info) Description 11/11/2024 6:30 AM EDT - 11/11/2024 10:12 AM EDT Hospital Encounter [facility] [address] [place] [address] Wayne Person MD [address] [place] [address] Ed Dale MD [address] [place] [address] Right upper lobe pulmonary nodule Discharge Disposition: [...] or training? Not on file Preferred Language Tajik 11/04/2024 PHQ-2 Answer Date Recorded Retired PHQ-9: Brief Depression Severity Measure Score 0 02/19/2023 Comments No Sex and Gender Information Value Date Recorded Sex Assigned at Not on file Legal Sex Female 10:51 AM EDT Gender Identity Not on file Sexual Orientation Not on file documented as of this encounter Last Filed Vital Signs Vital Sign Reading Time Taken Comments Blood Pressure 150/96 11/11/2024 9:15 AM EDT Pulse 98 11/11/2024 9:05 AM EDT Temperature 36.2 C (97.2 F) 11/11/2024 8:37 AM EDT Respiratory Rate 12 11/11/2024 8:37 AM EDT Oxygen Saturation 96% 11/11/2024 9:05 AM EDT Inhaled Oxygen Concentration - - Weight - - Height - - Body Mass Index - - documented in this encounter Discharge Instructions * Attachments The following attachments cannot be sent through Care Everywhere. * General Anesthesia Adult Care After (Tajik) * Flexible Bronchoscopy (Tajik) documented in this encounter Medications at Time of Discharge [...] Daily. 08/03/2022 documented as of this encounter H&P Notes * Wayne Person MD - 11/11/2024 7:31 AM EDT PULMONARY NOTE Chief Complaint Asthma, groundglass nodule, immunoglobulin deficiency History of Present Illness 79-year-old female referred for consideration of navigational bronchoscopy Long history of asthma and immunoglobulin deficiency She has been followed in our office for her asthma and with serial chest imaging She has a right upper lobe groundglass opacity which is showing slow but definite interval enlargement Worrisome for a slowly growing primary bronchogenic carcinoma She has had no hemoptysis Patient Active Problem List Diagnosis Multiple pulmonary nodules 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 Hypothyroidism Hypertension Gastroesophageal reflux disease Eosinophilic leukocytosis Churg-Britni syndrome Chronic sinusitis Moderate persistent asthma without complication Mixed anxiety depressive disorder Atopic rhinitis Nontoxic multinodular goiter Uncontrolled type 2 diabetes mellitus with hyperglycemia CLL (chronic lymphocytic leukemia) Left cerebellar stroke History of stroke Right upper lobe pulmonary nodule Allergies Allergen Reactions Bactrim [Sulfamethoxazole-Trimethoprim] Other (See Comments) Pancytopenia Current Facility-Administered Medications: famotidine (PEPCID) injection 20 mg, 20 mg, Intravenous, Once, Ed Dale MD famotidine (PEPCID) tablet 20 mg, 20 mg, Oral, Once, Ed Dale MD ipratropium-albuterol (DUO-NEB) nebulizer solution 3 mL, 3 mL, Nebulization, 4x Daily - RT, Ed Dale MD, 3 mL at 11/11/24 0723 [START ON 11/12/2024] lactated ringers infusion, 9 mL/hr, Intravenous, Continuous, Ed Dale MD lidocaine PF 1% (XYLOCAINE) injection 0.5 mL, 0.5 mL, Injection, Once PRN, Ed Dale MD midazolam (VERSED) injection 0.5 mg, 0.5 mg, Intravenous, Q10 Min PRN, Ed Dale MD sodium chloride 0.9 % flush 10 mL, 10 mL, Intravenous, Q12H, Ed Dale MD sodium chloride 0.9 % flush 10 mL, 10 mL, Intravenous, PRN, Ed Dale MD MEDICATION LIST AND ALLERGIES REVIEWED. Family History Problem Relation Age of Onset Cancer Mother Dementia Mother Heart disease Mother pacemaker put in Cancer Father COPD Father Emphysema Father Allergies Father Brain cancer Brother Throat cancer Brother Stomach cancer Brother Hypertension Brother Cancer Brother brain,throat,stomach cancer Allergies Sister Asthma Sister Heart disease Sister pacemanker Diabetes Sister Cancer Maternal Aunt colon Asthma Brother Allergies Brother Social History Tobacco Use Smoking status: Former Current packs/day: 0.00 Average packs/day: 1 pack/day for 3.0 years (3.0 ttl pk-yrs) Types: Cigarettes Start date: 10/03/1999 Quit date: 10/02/2002 Years since quittin.1 Passive exposure: Past Smokeless tobacco: Never Vaping Use Vaping status: Never Used Substance Use Topics Alcohol use: No Drug use: No Social History Social History Narrative Not on file FAMILY AND SOCIAL HISTORY REVIEWED. Review of Systems IF PRESENT REFER TO SCANNED ROS SHEET FROM SAME DATE OTHERWISE ROS OBTAINED AND NON-CONTRIBUTORY OVER HPI. BP 143/90 (BP Location: Right arm, Patient Position: Sitting) Pulse 80 Temp 97.6 ??F (36.4 ??C)(Temporal) Resp 16 LMP (LMP Unknown) SpO2 99% Physical Exam Vitals and nursing note reviewed. Constitutional: General: She is not in acute distress. Appearance: She is well-developed. She is not diaphoretic. HENT: Head: Normocephalic and atraumatic. Neck: Thyroid: No thyromegaly. Cardiovascular: Rate and Rhythm: Normal rate and regular rhythm. Heart sounds: Normal heart sounds. No murmur heard. Pulmonary: Effort: Pulmonary effort is normal. Breath sounds: Normal breath sounds. No stridor. Lymphadenopathy: Cervical: No cervical adenopathy. Upper Body: Right upper body: No supraclavicular or epitrochlear adenopathy. Left upper body: No supraclavicular or epitrochlear adenopathy. Skin: General: Skin is warm and dry. Neurological: Mental Status: She is alert. Psychiatric: Behavior: Behavior normal. Results CT scan of the chest reveals slow but continued enlargement in the right upper lobe groundglass opacity Immunization History Administered Date(s) Administered Arexvy (RSV, Adults 60+ yrs) 01/16/2024 COVID-19 (MODERNA) 12YRS+ (SPIKEVAX) 01/10/2024 COVID-19 (MODERNA) 1st,2nd,3rd Dose Monovalent 06/02/2020, 06/30/2020, 01/05/2021, 07/13/2021 Flu Vaccine Quad PF >36MO 01/02/2019, 12/31/2020 Fluzone >6mos 01/07/2012 Fluzone High-Dose 65+YRS 01/10/2024 Influenza, Unspecified 12/30/2017 Pneumococcal Conjugate 20-Valent (PCV20) 01/16/2024 Problem List No diagnosis found. Discussion We reviewed her chest imaging She has a slowly enlarging groundglass opacity in the right upper lobe Worrisome for a bronchogenic carcinoma, specifically adenocarcinoma. Other etiologies including an atypical infection are a consideration as well Plan at this point is to pursue a navigational bronchoscopy We discussed the risks of the procedure including the risk of pneumothorax which if it did occur would require hospitalization and could result in chest tube placement and a prolonged hospital stay. Moderate level of Medical Decision Making complexity based on 1 undiagnosed new problem or 2 stablechronic conditions, independent interpretation of tests, and/or prescription drug management Wayne Person MD Note electronically signed CC: Consuelo Arroyo MD documented in this encounter OR Notes * Op Note - Wayne Person MD - 11/11/2024 7:52 AM EDT Bronchoscopy Procedure Note Pre-op Diagnosis: Enlarging right upper lobe groundglass opacity Post-op Diagnosis: Same; EDAC Surgeon: Wayne Person MD Anesthesia: General Operation: Flexible fiberoptic bronchoscopy Findings: No discrete endobronchial lesions; significant excessive dynamic airway collapse of the distal trachea extending into the left and right mainstem bronchus Specimen(s): Transbronchial needle aspiration, transbronchial biopsy, brush, and BAL right upper lobe Estimated Blood Loss: Minimal/None Complications: No immediate, chest x-ray pending at the time of this dictation Indications and History: Lili Nina is a 79 y.o. female with slowly enlarging groundglass opacity in the right upper lobe. The risks, benefits, complications, treatment options and expected outcomes were discussed with the patient. The possibilities of reaction to medication, pulmonary aspiration, perforation of a viscus, bleeding, collapsed lung requiring chest tube and hospitalization, failure to diagnose a condition and creating a complication requiring transfusion or operation were discussed with the patient who freely signed the consent. Description of Procedure: The patient was seen in the Holding Room and an immediate patient assessment was done prior to the administration of moderate and/or deep conscious sedation. The patient was taken to the Endoscopy Suite, identified as Lili Nina and the procedure verified as Flexible Fiberoptic Bronchoscopy. A Time Out was held and the above information confirmed. After the induction of general anesthesia the patient was intubated with an 8.5 endotracheal tube. The bronchoscope was introduced via the endotracheal tube which confirmed good position in the distal one third of the trachea. The scope was advanced into the left mainstem bronchus. The left upper lobe, lingula, left lower lobe, and superior segment left lower lobe revealed no discrete endobronchial lesions. The scope was advanced into the right mainstem bronchus. The right upper lobe, bronchus intermedius, right middle lobe, right lower lobe, and superior segment of the right lower lobe revealed no discrete endobronchial lesions. The regular scope was removed and the navigational camera and catheter were introduced. Registration was performed using the navigational software. Then, the scope and camera were advanced out to the lesion in the right upper lobe using a previously plotted course. Fluoroscopy was used under my direct supervision without a radiologist present for positioning the catheter and obtaining specimens. Radial ultrasound was utilized to help identify the location of best concentric signal. Multiple passes were taken with a 19-gauge needle, multiple transbronchial biopsies were obtained for a larger volume of tissue, a cytology brushing specimen and a BAL with 60 mL instilled and 30 mL returned. The navigational equipment was removed and the EBUS scope was introduced. Station 4, station 7, station 10 and 11 bilaterally were interrogated. Using a 21-gauge transbronchial needle multiple passeswere obtained from stations 10R and submitted for cytology. The EBUS scope was removed and the regular scope was reintroduced. The airways were suctioned clearand at the end of the procedure there was no significant residual blood and no evidence of active bleeding. The scope was withdrawn without difficulty. Fluoroscopy Fluoroscopy was performed under my direct supervision without a radiologist present for obtaining transbronchial biopsy and brushing specimens. Fluoroscopy was used at the end the procedure to exclude a pneumothorax. None was identified. Less than 6 minutes of fluoroscopy time was used in total. The Patient was taken to the Endoscopy Recovery area in satisfactory condition. Attestation: I performed the procedure Wayne Person MD, [facility] documented in this encounter Plan of Treatment Upcoming Encounters Date Type Department Care Team (Late st Contact Info) Description 01/25/2025 1:30 PM EDT Office Visit [facility] ENDOCR[facility]OLOGY [address] [facility] [address] [place] [id number] Ahsan Alonso MD [address] [facility] [address] [place], [place] [id number] 10/14/2025 1:30 PM EDT Office Visit [facility] CARDIOLOGY [address] [place] [address] Hima Gonzalez MD [address] [facility] [address] [place] [address] Pending Results Name Type Priority Associated Diagnoses Date /Time Fungus Culture - Lavage, Lung, Right Upper Lobe Microbiology Routine Right upper lobe pulmonary nodule 11/11/2024 8:17 AM EDT AFB Culture - Lavage, Lung, Right Upper Lobe Microbiology Routine Right upper lobe pulmonary nodule 11/11/2024 8:17 AM EDT Bronchoscopy PFT 11/11/2024 7 :32 AM EDT documented as of this encounter Procedures Procedure Name Priority Date/Time Associated Diagnosis Comments XR CHEST 1 VW STAT 11/11/2024 8:53 AM EDT POCT GLUCOSE FINGERSTICK Routine 11/11/2024 8:36 AM EDT BAL CULTURE, QUANTITATIVE Routine 11/11/2024 8:17 AM EDT Right upper lobe pulmonary nodule FUNGUS SMEAR Routine 11/11/2024 8:17 AM EDT Right upper lobe pulmonary nodule AFB CULTURE Routine 11/11/2024 8:17 AM EDT Right upper lobe pulmonary nodule FUNGAL CULTURE Routine 11/11/2024 8:17 AM EDT Right upper lobe pulmonary nodule FL C ARM DURING SURGERY Routine 11/11/2024 8:15 AM EDT TISSUE PATHOLOGY EXAM Routine 11/11/2024 8:08 AM EDT Right upper lobe pulmonary nodule NON-UNDERWATER [facility] (RAJESH, COR, MAD, CARMEN) Routine 11/11/2024 8:04 AM EDT Right upper lobe pulmonary nodule WV BRONCHOSCOPY W/CPTR-ASST IMAGE-GUIDED NAVIGATION 11/11/2024 7:42 AM EDT Right upper lobe pulmonary nodule BRONCHOSCOPY 11/11/2024 7:32 AM EDT POCT GLUCOSE FINGERSTICK Routine 11/11/2024 7:31 AM EDT documented in this encounter Results * XR Chest 1 View (11/11/2024 8:53 AM EDT) Anatomical Region Laterality Modality Body N/A Radiographic Alaina ging 11/11/2024 9:28 AM EDT Impressions 11/11/2024 9:30 AM EDT Impression: 1.No definite pneumothorax. 2.Haziness right upper lobe which could relate to post bronchoscopy changes and known groundglass area of abnormality.. Electronically Signed: Taj Frazier MD 11/11/2024 9:30 AM EDT Workstation ID: [id number] Narrative 11/11/2024 9:30 AM EDT XR CHEST 1 VW Date of Exam: 11/11/2024 8:39 AM EDT Indication: R/o PTX Comparison: CT chest November 04, 2024 Findings: A pneumothorax not definitely identified. There is haziness in the right upper lobe which could relate to groundglass density noted on CT and possible post bronchoscopy changes. Procedure Note Taj Frazier MD - 11/11/2024 XR CHEST 1 VW Date of Exam: 11/11/2024 8:39 AM EDT Indication: R/o PTX Comparison: CT chest November 04, 2024 Findings: A pneumothorax not definitely identified. There is haziness in the rightupper lobe which could relate to groundglass density noted on CT andpossible post bronchoscopy changes. IMPRESSION: Impression: 1.No definite pneumothorax. 2.Haziness right upper lobe which could relate to post bronchoscopychanges and known groundglass area of abnormality.. Electronically Signed: Taj Frazier MD 11/11/2024 9:30 AM EDT Workstation ID: [id number] Wayne Person MD IMG DIAGNOSTIC IMAGING ORDERABLES Final Result * (ABNORMAL) POC Glucose Once (11/11/2024 8:36 AM EDT) Pathologist [facility] Glucose 310(H) 70 - 130 mg/dL 11/11/2024 8:38 AM EDT [facility] Blood 11/11/2024 8:36 AM EDT 11/11/2024 8:38 AM EDT Wayne Person MD POINT OF CARE TEST GUERA WILLIS Final Result [facility]
[address] [place] [address], * BAL Culture, Quantitative - Lavage, Lung, Right Upper Lobe (11/11/2024 8:17 AM EDT) Pathologist [facility] BAL Culture No growth FRANNIE 11/13/2024 9:40 AM EDT [facility] Gram Stain Many (4+) Red blood cells 11/13/2024 9:40 AM EDT [facility] Gram Stain Rare (1+) WBCs seen 11/13/2024 9:40 AM EDT [facility] Gram Stain No organisms seen 11/13/2024 9:40 AM EDT [facility] Lavage Structure of upper lobe of right lung / Unknown 11/11/2024 8:17 AM EDT 11/11/2024 10:12 AM EDT Wayne Person MD MICROBIOLOGY - GENERAL ORDERABLES Final Result [facility]
[address] [place] [address], [place] [phone] [facility]
[address] [place] [address], [place] [phone] * Fungus Smear - Lavage, Lung, Right Upper Lobe (11/11/2024 8:17 AM EDT) Fungal Stain No yeast or hyphal elements seen 11/12/2024 2:43 PM EDT [facility] Lavage Structure of upper lobe of right lung / Unknown 11/11/2024 8:17 AM EDT 11/11/2024 10:12 AM EDT Wayne Person MD MICROBIOLOGY - GENERAL ORDERABLES Final Result Performing Organization Address City/[facility] Co de Phone Number [facility]
[address] [place] [address], * FL C Arm During Surgery (11/11/2024 8:15 AM EDT) Narrative SYSTEMGENERATED, DOCUMENTATION - 11/11/2024 8:26 AM EDT This procedure was auto-finalized with no dictation required. Wayne Person MD IMG FLUOROSCOPY ORDERAB LES Final Result * Tissue Pathology Exam (11/11/2024 8:08 AM EDT) Addendum PD-L1 (22C3) Tumor Proportion Score: <1%: No PD-L1 expression. PD-L1 (22C3) Combined Positive: 0. Testing performed at [facility]. See scanned report. 11/13/2024 2:58 PM EDT [facility] Addendum electronically signed by Kristofer Ghosh MD on 11/13/2024 at 1458 EDT Case Report Surgical Pathology Report Case: [id number] Authorizing Provider: Wayne Person MD Collected: 11/11/2024 08:08 AM Ordering Location: [facility] Received: 11/11/2024 10:10 AM ENDO SUITES Pathologist: Kristofer Ghosh MD Specimen: Lung, Right Upper Lobe, RUL TBBX for pathology 11/13/2024 2:58 PM EDT [facility] Clinical Information Right upper lobe pulmonary nodule 11/13/2024 2:58 PM EDT [facility] Final Diagnosis LUNG, RIGHT UPPER LOBE, TRANSBRONCHIAL BIOPSY: Pulmonary adenocarcinoma (see comment). 11/13/2024 2:58 PM EDT [facility] at 1152 EDT Comment Biopsies show portions of alveolar tissue and significant blood clot. There is lepidic growth of atypical epithelial cells and focally atypical small gland profiles within fibrotic stroma. Immunohistochemica l staining shows the atypical cells to be positive for TTF-1. Histologic appearance and staining is consistent with pulmonary adenocarcinoma with lepidic and invasive growth pattern noted. 11/13/2024 2:58 PM EDT [facility] Gross Description 1. Lung, Right Upper Lobe. Received in formalin labeled RUL TBBX for pathology and consists of multiple ambrose-pink soft tissue fragments measuring 1.8 x 0.5 x 0.2 cm in aggregate. The specimen is submitted entirely in cassette 1A. MJM 11/13/2024 2:58 PM EDT [facility] Microscopic Description The slides are reviewed and demonstrate histopathologic features supporting the above rendered diagnosis. 11/13/2024 2:58 PM EDT [facility] Tissue Structure of upper lobe of right lung / Unknown 11/11/2024 8:08 AM EDT 11/11/2024 10:10 AM EDT us Wayne Person MD PATHOLOGY/CYTOLOGY GUERA WILLIS Edited Result - Final [facility]
[address] [place] [address], * NON-UNDERWATER [facility] (RAJESH,COR,MAD,CARMEN) (11/11/2024 8:04 AM EDT) Reference Lab Report FINAL FNA REPORT -- DIAGNOSIS: A. LUNG, RIGHT UPPER LOBE TBNA: Negative for malignant cells. B. BODY FLUID, RIGHT UPPER LOBE BRONCHIAL, BRUSHING: Negative for malignant cells. C. BODY FLUID, RIGHT UPPER LOBE BRONCHIAL, LAVAGE: Negative for malignant cells. D. LYMPH NODE, RIGHT STATION 10 FNA: Negative for malignant cells. Final Reviewed, Diagnosed and Electronically Signed By: ANTONIETA BROOKS MD Comments: I recommend clinical correlation to determine if these findings are community health program representative or if additional sampling is indicated. -- MICROSCOPIC DESCRIPTION: A. Pulmonary macrophages and inflammatory cells are present B. Reactive bronchial sounds are present C. Few bronchial cells and macrophage is present D. Lymphocytes are present CLINICAL HISTORY: Solitary pulmonary nodule SPECIMENS SUBMITTED: A. LUNG, RIGHT UPPER LOBE TBNA: B. BODY FLUID, RIGHT UPPER LOBEBRONCHIAL BRUSHING: C. BODY FLUID, RIGHT UPPER LOBEBRONCHIAL LAVAGE: D. LYMPH NODE, RIGHTSTATION 10, FNA: GROSS SPECIMEN DESCRIPTION: A. 30 ccs translucent red fluid, scant sediment, received in fixativeThinPrep slides prepared.Cell block has been examined. B. 30 ccs clear pink fluid, containing brush, very scant visible sediment, received in fixativeThinPrep slides prepared.Automated paraffin embedded cell block has been examined. C. 45 ccs opaque serosanguineous fluid, notable mucoid sediment, received in fixativeThinPrep slides prepared.Cell block has been examined. x2 D. 30 ccs transparent red fluid, very scant visible sediment, received in fixativeThinPrep slides prepared.Cell block has been examined. See other report ([id number]) See other report ([id number]) See other report ([id number]) 11/12/2024 2:08 PM EDT [facility] Tissue Structure of upper lobe of right lung / Unknown Collection / Unknown 11/11/2024 8:04 AM EDT 11/11/2024 10:09 AM EDT Bronchial brushings specimen (specimen) Structure of upper lobe of right lung / Unknown 11/11/2024 8:13 AM EDT Specimen obtained by lavage (specimen) Structure of upper lobe of right lung / Unknown 11/11/2024 8:16 AM EDT Tissue specimen (specimen) Lymph node specimen / Unknown 11/11/2024 8:20 AM EDT Wayne Person MD PATHOLOGY/CYTOLOGY ORDE LAZARO Final Result [facility]
[address] [place] [address], [place] [phone] * (ABNORMAL) POC Glucose Once (11/11/2024 7:31 AM EDT) Glucose 306(H) 70 - 130 mg/dL 11/11/2024 7:38 AM EDT [facility] Blood 11/11/2024 7:31 AM EDT 11/11/2024 7:38 AM EDT Wayne Person MD POINT OF CARE TEST ORDE LAZARO Final Result [facility]
[address] [place] [address], [place] [phone] documented in this encounter Visit Diagnoses Diagnosis Right upper lobe pulmonary nodule- Primary documented in this encounter Admitting Diagnoses Diagnosis Right upper lobe pulmonary nodule documented in this encounter Administered Medications Inactive Administered Medications - up to 3 most recent administrations Medication Order MAR Action Action Date Dose Rate Site ipratropium-albuterol (DUO-NEB) nebulizer solution 3 mL 3 mL, Nebulization, 4 Times Daily - RT, First dose on Sat11/11/24 at 0830, Include Respiratory Treatment Education Given 11/11/2024 7:23 AM EDT 3 mL ipratropium-albuterol (DUO-NEB) nebulizer solution 3 mL 3 mL, Nebulization, Once As Needed, Wheezing, Shortness of Air, bronchospasm, Starting on Sat11/11/24 at 0753, For 1 dose Given 11/11/2024 8:46 AM EDT 3 mL lactated ringers infusion 9 mL/hr, Intravenous, Continuous, Starting on Kelly 11/12/24 at 0000, For 1 day, May switch to NS IV at KVO if renal / if indicated lidocaine PF 1% (XYLOCAINE) injection 0.5 mL 0.5 mL, Injection, Once As Needed, IV Start, Starting on Sat11/11/24 at 0715, For 1 dose midazolam (VERSED) injection 0.5 mg 0.5 mg, Intravenous, Every 10 Minutes PRN, Anxiety prophylaxis, Pre-op comfort, Starting on Sat11/11/24 at 0715, For 2 doses, May repeat dose in 10 minutes one time then contact provider for additional orders. If given IV Push: give slowly over at least 2 minutes, unless provider at bedside for induction. (NOLVIA) ondansetron (ZOFRAN) injection 4 mg 4 mg, Intravenous, Once As Needed, Nausea, Vomiting, Starting on Sat11/11/24 at 0753, For 1 dose, If BOTH ondansetron (ZOFRAN) and promethazine (PHENERGAN) are ordered use ondansetron first and THEN promethazine IF ondansetron is ineffective. sodium chloride 0.9 % flush 10 mL 10 mL, Intravenous, Every 12 Hours Scheduled, First dose on Sat11/11/24 at 0900 sodium chloride 0.9 % flush 10 mL 10 mL, Intravenous, As Needed, Line Care, Starting on Sat11/11/24 at 0715 documented in this encounter Active and Recently Administered Medications Times are shown in EDT. Scheduled Medication Order 11/09/2024 11/10/2024 11/11/2024 famotidine (PEPCID) injection 20 mg 20 mg, Intravenous, Once, On Sat11/11/24 at 0717, For 1 dose, Give IV push over 2 minutes. 0717 (Due) famotidine (PEPCID) tablet 20 mg 20 mg, Oral, Once, On Sat11/11/24 at 0717, For 1 dose 0717 (Due) ipratropium-albuterol (DUO-NEB) nebulizer solution 3 mL 3 mL, Nebulization, 4 Times Daily - RT, First dose on Sat11/11/24 at 0830, Include Respiratory Treatment Education 0723 (Given - Provid er: Rhonda Reece RN)0830 (Due) sodium chloride 0.9 % flush 10 mL 10 mL, Intravenous, Every 12 Hours Scheduled, First dose on Sat11/11/24 at 0900 0900 (Due) Continuous Medication Order 11/09/2024 11/10/2024 11/11/2024 lactated ringers infusion 9 mL/hr, Intravenous, Continuous, Starting on Kelly 11/12/24 at 0000, For 1 day, May switch to NS IV at KVO if renal / if indicated PRN Medication Order 11/09/2024 11/10/2024 11/11/2024 ipratropium-albuterol (DUO-NEB) nebulizer solution 3 mL (COMPLETED) 3 mL, Nebulization, Once As Needed, Wheezing, Shortness of Air, bronchospasm, Starting on Sat11/11/24 at 0753, For 1 dose 0846 (Given - Provid er: Christina Novoa RN) lidocaine PF 1% (XYLOCAINE) injection 0.5 mL 0.5 mL, Injection, Once As Needed, IV Start, Starting on Sat11/11/24 at 0715, For 1 dose midazolam (VERSED) injection 0.5 mg 0.5 mg, Intravenous, Every 10 Minutes PRN, Anxiety prophylaxis, Pre-op comfort, Starting on Sat11/11/24 at 0715, For 2 doses, May repeat dose in 10 minutes one time then contact provider for additional orders. If given IV Push: give slowly over at least 2 minutes, unless provider at bedside for induction. (NOLVIA) ondansetron (ZOFRAN) injection 4 mg 4 mg, Intravenous, Once As Needed, Nausea, Vomiting, Starting on Sat11/11/24 at 0753, For 1 dose, If BOTH ondansetron (ZOFRAN) and promethazine (PHENERGAN) are ordered use ondansetron first and THEN promethazine IF ondansetron is ineffective. sodium chloride 0.9 % flush 10 mL 10 mL, Intravenous, As Needed, Line Care, Starting on Sat11/11/24 at 0715 documented in this encounter Care Teams Mass Spectrometry Manager Relationship Specialty Start Date End Date Consuelo Arroyo MD [address] [place] [address] PCP - General Internal Medicine 02/13/18 documented as of this encounter
--- OUTSIDE RECORDS SUMMARY | 2024-11-11 07:30 | XMS_ITS | Encounter Summary ---
Author Organization [facility] Address [address] [place] [address] Care Team Providers Care Healthcare Administrator Name Role Phone Consuelo Arroyo MD Primary Care Provider + Reason for Visit * Auth/Cert Specialty Diagnoses / Procedures Referred By Contac t Referred To Contact Diagnoses Right upper lobe pulmonary nodule Right upper lobe pulmonary nodule [R91.1] Procedures FL BRONCHOSCOPY W/CPTR-ASST IMAGE-GUIDED NAVIGATION BRONCHOSCOPY NAVIGATION WITH ENDOBRONCHIAL ULTRASOUND AND ION ROBOT Referral ID Status Reason Start Date Expiration Date Visits Re quested Visits Authorized [id number] 1 1 Encounter Details Date Type Department Care Team (Late st Contact Info) Description 11/11/2024 7:30 AM EDT - 11/11/2024 8:54 AM EDT [facility] [address] [place] [id number] Wayne Person MD [address] [place] [address] BRONCHOSCOPY NAVIGATION WITH ENDOBRONCHIAL ULTRASOUND AND ION ROBOT [44271 (CPT )] Social History Tobacco Use Types Packs/Day Years [...] or training? Not on file Preferred Language Citizen Of [place] 11/04/2024 PHQ-2 Answer Date Recorded Retired PHQ-9: Brief Depression Severity Measure Score 0 02/19/2023 Comments No Sex and Gender Information Value Date Recorded Sex Assigned at Not on file Legal Sex Female 10:51 AM EDT Gender Identity Not on file Sexual Orientation Not on file documented as of this encounter Last Filed Vital Signs Vital Sign Reading Time Taken Comments Blood Pressure 160/96 11/11/2024 8:45 AM EDT Pulse 86 11/11/2024 8:45 AM EDT Temperature 36.2 C (97.2 F) 11/11/2024 8:37 AM EDT Respiratory Rate 12 11/11/2024 8:37 AM EDT Oxygen Saturation 99% 11/11/2024 8:45 AM EDT Inhaled Oxygen Concentration - - Weight - - Height - - Body Mass Index - - documented in this encounter Discharge Instructions * Attachments The following attachments cannot be sent through Care Everywhere. * General Anesthesia Adult Care After (Citizen Of [place]) * Flexible Bronchoscopy (Citizen Of [place]) documented in this encounter Medications at Time [...] I performed the procedure Wayne Person MD, FCCP documented in this encounter Plan of Treatment Upcoming Encounters Date Type Department Care Team (Late st Contact Info) Description 01/25/2025 1:30 PM EDT Office Visit [facility] ENDOCRINOLOGY [address] [facility] [address] [place] [address] Ahsan Alonso MD [address] [facility] [address] [place] [address] 10/14/2025 1:30 PM EDT Office Visit [facility] CARDIOLOGY [address] [place] [address] Hima Gonzalez MD [address] [facility] [address] [place] [address] Pending Results Name Type Priority [...] AM EDT Right upper lobe pulmonary nodule NON-PARTS COUNTERPERSON CYTOLOGY, [facility] (RAJESH, COR, MAD, CARMEN) Routine 11/11/2024 8:04 AM EDT Right upper lobe pulmonary nodule FL BRONCHOSCOPY W/CPTR-ASST IMAGE-GUIDED NAVIGATION 11/11/2024 7:42 AM [...] MD 11/11/2024 9:30 AM EDT Workstation ID: [id number] Narrative 11/11/2024 9:30 AM EDT XR CHEST [...] MD 11/11/2024 9:30 AM EDT Workstation ID: [id number] Wayne Person MD IMG DIAGNOSTIC IMAGING ORDERABLES Final Result * (ABNORMAL) POC Glucose Once (11/11/2024 8:36 AM EDT) Glucose 310(H) 70 - 130 mg/dL 11/11/2024 8:38 AM EDT [facility] Blood 11/11/2024 8:36 AM EDT 11/11/2024 8:38 AM EDT Wayne Person MD POINT OF CARE TEST ORDE RABLES Final Result [facility]
[address] [place] [address], * BAL Culture, Quantitative - Lavage, Lung, Right Upper Lobe (11/11/2024 8:17 AM EDT) BAL Culture No growth FRANNIE 11/13/2024 9:40 AM EDT [facility] Gram Stain Many (4+) Red blood cells 11/13/2024 9:40 AM EDT [facility] Gram Stain Rare (1+) WBCs seen 11/13/2024 9:40 AM EDT [facility] Gram Stain No organisms seen 11/13/2024 9:40 AM EDT [facility] Lavage Structure of upper lobe of right lung / Unknown 11/11/2024 8:17 AM EDT 11/11/2024 10:12 AM EDT Wayne Person MD MICROBIOLOGY - GENERAL ORDERABLES Final Result [facility]
[address] [place] [address], [place] [phone] [facility]
[address] [place] [address], [place] [phone] * Fungus Smear - Lavage, Lung, Right Upper Lobe (11/11/2024 8:17 AM EDT) Fungal Stain No yeast or hyphal elements seen 11/12/2024 2:43 PM EDT [facility] Lavage Structure of upper lobe of right lung / Unknown 11/11/2024 8:17 AM EDT 11/11/2024 10:12 AM EDT Wayne Person MD MICROBIOLOGY - GENERAL ORDERABLES Final Result Performing Organization Address City/[facility]/ZIP Co de Phone Number [facility]
[address] [place] [address], [place] [phone] * FL C Arm During Surgery (11/11/2024 [...] See scanned report. 11/13/2024 2:58 PM EDT [facility] Addendum electronically signed by Kristofer Ghosh MD on 11/13/2024 at 1458 EDT Case Report Surgical Pathology Report Case: [id number] Authorizing Provider: Wayne Person MD Collected: 11/11/2024 08:08 AM [facility] Received: 11/11/2024 10:10 AM ENDO SUITES Pathologist: Kristofer Ghosh MD Specimen: Lung, Right Upper Lobe, RUL TBBX for pathology 11/13/2024 2:58 PM EDT [facility] Clinical Information Right upper lobe pulmonary nodule 11/13/2024 2:58 PM EDT [facility] Final Diagnosis LUNG, RIGHT UPPER LOBE, TRANSBRONCHIAL BIOPSY: Pulmonary adenocarcinoma (see comment). 11/13/2024 2:58 PM EDT [facility] at 1152 EDT Comment [...] growth pattern noted. 11/13/2024 2:58 PM EDT [facility] Gross Description 1. Lung, Right Upper Lobe. Received in formalin labeled RUL TBBX for pathology and consists of multiple ambrose-pink soft tissue fragments measuring 1.8 x 0.5 x 0.2 cm in aggregate. The specimen is submitted entirely in cassette 1A. MJM 11/13/2024 2:58 PM EDT [facility] Microscopic Description The slides are reviewed and demonstrate histopathologic features supporting the above rendered diagnosis. 11/13/2024 2:58 PM EDT [facility] Tissue Structure of upper lobe of right lung / Unknown 11/11/2024 8:08 AM EDT 11/11/2024 10:10 AM EDT us Wayne Person MD PATHOLOGY/CYTOLOGY [facility] Edited Result - Final [facility]
[address] [place] [address], * NON-PARTS COUNTERPERSON CYTOLOGY, [facility] (RAJESH,COR,MAD,CARMEN) (11/11/2024 8:04 AM [...] correlation to determine if these findings are media sales representative or if additional sampling is indicated. [...] block has been examined. See other report ([id number]) See other report ([id number]) See other report ([id number]) 11/12/2024 2:08 PM EDT PATHOLOGY AND CYTOLOGY [...] specimen / Unknown 11/11/2024 8:20 AM EDT us Wayne Person MD PATHOLOGY/CYTOLOGY [facility] Final Result [facility]
[address] [place] [address], [place] [phone] * (ABNORMAL) POC Glucose Once (11/11/2024 7:31 AM EDT) Glucose 306(H) 70 - 130 mg/dL 11/11/2024 7:38 AM EDT [facility] Blood 11/11/2024 7:31 AM EDT 11/11/2024 7:38 AM EDT Wayne Person MD POINT OF CARE TEST [facility]ER[facility] WILLIS Final Result Performing Organization Address City/[facility] Co de Phone Number [facility]
[address] [place] [address], [place] [phone] documented in this encounter Visit Diagnoses Diagnosis Right upper lobe pulmonary nodule- Primary Right upper lobe pulmonary nodule documented in this encounter Admitting Diagnoses Diagnosis [...] 0715 documented in this encounter Care Teams Healthcare Administrator Relationship Specialty Start Date End Date Consuelo Arroyo MD [address] [phone] PCP - General Internal Medicine 02/13/18 documented as of this encounter
--- OUTSIDE RECORDS SUMMARY | 2024-11-11 07:42 | XMS_ITS | Encounter Summary ---
Author Organization [facility] Address [address] [place] [address] Care Team Providers Care Professor Of Surgery Name Role Phone Consuelo Arroyo MD Primary Care Provider + Reason for Visit * Auth/Cert Specialty Diagnoses / Procedures Referred By Contac t Referred To Contact Diagnoses Right upper lobe pulmonary nodule Right upper lobe pulmonary nodule [R91.1] Procedures [place] BRONCHOSCOPY W/CPTR-ASST IMAGE-GUIDED NAVIGATION BRONCHOSCOPY NAVIGATION WITH ENDOBRONCHIAL ULTRASOUND AND ION ROBOT Referral ID Status Reason Start Date Expiration Date Visits Re quested Visits Authorized [id number] 1 1 Encounter Details Date Type Department Care Team (Late st Contact Info) Description 11/11/2024 7:42 AM EDT Anesthesia Event [facility] [address] [place] [address] Ed Dale MD [address] [place] [id number] Anesthesia Record Procedure Summary Procedure Name Responsible Anesthesiologist Anesthesia Start Time Anesthesia Stop Time BRONCHOSCOPY NAVIGATION WITH ENDOBRONCHIAL ULTRASOUND AND ION ROBOT Ed Dale MD 11/11/24 0742 11/11/24 0837 Events Date Time Event Comment 11/11/2024 0706 AN Equip Check 0717 0742 An Start The patient was reevaluated immediately before moderate or deep sedation use and before anesthesia induction. 0742 An Start Data 0746 An Induction 0748 An Intubation 0829 An Extubation 0832 an stop data 0837 Handoff to RN The following has been completed: 1. Identification of Patient, lucas family member(s) or patient surrogate 2. Identification of the responsible Practitioner (primary service) 3. Discussion of the pertinent/attainable medical history 4. Discussion of the surgical/procedure course (procedure, reason for surgery, procedure performed) 5. Intraoperative anesthetic management and issue/concerns to include things such as airway, hemodynamics, narcotic, sedation level and paralytic management and intravenous fluids/blood products and urine output during the procedure 6. Expectations/Plans for the early post-procedure period to include things such as anticipated course (anticipatory guidance), complications, need for laboratory or ECG and medication administration 7. Opportunity for questions and acknowledgment of understanding of report from the receiving PACU/ICU team 0837 An Stop Meds Name Total lidocaine 4 % 1 each propofol 10 MG/ML 120 mg lidocaine PF 1% 1 % 50 mg rocuronium 50 MG/5ML 50 mg ondansetron 2 mg/mL 4 mg dexAMETHasone 4 MG/ML 4 mg sugammadex (BRIDION) 500 mg/5 mL injecti on 200 mg sodium chloride 0.9 % infusion 500 mL * Agents Name O2 N2O Air Sevoflurane Inspired Sevoflurane * Blood No blood administrations on file. Lines, Drains, and Airways Type Details Placement Removal Peripheral IV Placement Date: 09/30; Placement Time: 731; Catheter Size: 20 G; Orientation: Right; Location: Antecubital; Removal Date: 11/11/24; Removal Time: 93111/11/24 07 by Rhonda Reece RN 11/11/24931 by Christina Novoa RN ETT Placement Date: 09/30; Placement Time: 747 (created via procedure documentation); Blade Size: 3; Location: Oral; Removal Date: 11/11/24; Removal Time: 82811/11/24 0748 by Christina Garza CRNA 11/11/24 08 by Christina Garza CRNA documented in this encounter Social History Tobacco Use Types Packs/Day Years [...] or training? Not on file Preferred Language Lao 11/04/2024 PHQ-2 Answer Date Recorded Retired PHQ-9: Brief Depression Severity Measure Score 0 02/19/2023 Comments No Sex and Gender Information Value Date Recorded Sex Assigned at Not on file Legal Sex Female 10:51 AM EDT Gender Identity Not on file Sexual Orientation Not on file documented as of this encounter OR Notes * Anesthesia Postprocedure Evaluation - Christina Garza CRNA - 11/11/2024 8:37 AM EDT Patient: Lili Nina Procedure Summary Date: 11/11/24 Room / Location: [facility] / [facility] Anesthesia Start: 741 Anesthesia Stop: 836 Procedure: BRONCHOSCOPY NAVIGATION WITH ENDOBRONCHIAL ULTRASOUND AND ION ROBOT Diagnosis: Right upper lobe pulmonary nodule (Right upper lobe pulmonary nodule [R91.1]) Surgeons: Wayne Person MD Provider: Ed Dale MD Anesthesia Type: general ASA Status: 3 Anesthesia Type: general Vitals Vitals Value Taken Time BP 111/95 11/11/24 08:37 Temp 97.2 ??F (36.2 ??C) 11/11/24 08:37 Pulse 90 11/11/24 08:37 Resp 12 11/11/24 08:37 SpO2 96 % 11/11/24 08:37 Post Anesthesia Care and Evaluation Patient location during evaluation: PACU Patient participation: complete - patient participated Level of consciousness: awake and alert Pain management: adequate Airway patency: patent Anesthetic complications: No anesthetic complications PONV Status: none Cardiovascular status: hemodynamically stable and acceptable Respiratory status: nonlabored ventilation, acceptable, spontaneous ventilation, face mask and oralairway Hydration status: acceptable No anesthesia care post op * Anesthesia Procedure Notes - Christina Garza CRNA - 11/11/2024 7:51 AM EDT Associated Order(s): Airway Airway Reason: elective Date/Time: 11/11/2024 7:48 AM Airway not difficult General Information and Staff Patient location during procedure: OR RPG DEVELOPER/CAA: Christina Garza CRNA Indications and Patient Condition Indications for airway management: airway protection Preoxygenated: yes MILS not maintained throughout Mask difficulty assessment: 1 - vent by mask Final Airway Details Final airway type: endotracheal airway Successful airway: ETT Cuffed: yes Successful intubation technique: video laryngoscopy Endotracheal tube insertion site: oral Blade: Forbes Blade size: 3 ETT size (mm): 8.5 Cormack-Lehane Classification: grade I - full view of glottis Placement verified by: chest auscultation and capnometry Cuff volume (mL): 6 Measured from: lips ETT/EBT to lips (cm): 22 Number of attempts at approach: 1 Assessment: lips, teeth, and gum same as pre-op and atraumatic intubation Additional Comments Negative epigastric sounds, Breath sound equal bilaterally with symmetric chest rise and fall * Anesthesia Preprocedure Evaluation - Ed Dale MD - 11/11/2024 6:48 AM EDT Anesthesia Evaluation Patient summary reviewed and Nursing notes reviewed Airway Mallampati: II TM distance: >3 FB Neck ROM: full No difficulty expected Dental - normal exam Pulmonary - normal exam (+) a smoker (2002) Former, asthma, Cardiovascular Rhythm: irregular Rate: normal (+) hypertension, dysrhythmias (eliquis tx) Paroxysmal Atrial Fib, hyperlipidemia ROS comment: Echo 06/02: normal EF, mild TR Neuro/Psych (+) CVA GI/Hepatic/Renal/Endo (+) GERD, liver disease history of elevated LFT, renal disease- CRI, diabetes mellitus, thyroid problem hypothyroidism Musculoskeletal (-) negative ROS Abdominal - normal exam Bowel sounds: normal. 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 Plan discussed with RPG DEVELOPER. CODE STATUS: documented in this encounter Plan of Treatment Upcoming Encounters Date Type Department Care Team (Late st Contact Info) Description 01/25/2025 1:30 PM EDT Office Visit [facility] ENDOCRINOLOGY [address] [facility] [address] [place] [phone] Ahsan Alonso MD [address] [facility] [address] [place], [place] [id number] 10/14/2025 1:30 PM EDT Office Visit [facility] CARDIOLOGY [address] [place] [address] [place] [address] Hima Gonzalez MD [facility] [address] [place], [place] [phone] documented as of this encounter Procedures Procedure Name Priority Date/Time Associated Diagnosis Comments ANESTHESIA INTUBATION Routine 11/11/2024 7:51 AM EDT documented in this encounter Results * BH AN ETT AIRWAY (11/11/2024 7:51 AM EDT) Narrative Christina Garza CRNA - 11/11/2024 7:51 AM EDT Christina Garza CRNA 11/11/2024 7:51 AM Airway Reason: elective Date/Time: 11/11/2024 7:48 AM Airway not difficult General Information and Staff Patient location during procedure: OR RPG DEVELOPER/CAA: Christina Garza CRNA Indications and Patient Condition Indications for airway management: airway protection Preoxygenated: yes MILS not maintained throughout Mask difficulty assessment: 1 - vent by mask Final Airway Details Final airway type: endotracheal airway Successful airway: ETT Cuffed: yes Successful intubation technique: video laryngoscopy Endotracheal tube insertion site: oral Blade: Forbes Blade size: 3 ETT size (mm): 8.5 Cormack-Lehane Classification: grade I - full view of glottis Placement verified by: chest auscultation and capnometry Cuff volume (mL): 6 Measured from: lips ETT/EBT to lips (cm): 22 Number of attempts at approach: 1 Assessment: lips, teeth, and gum same as pre-op and atraumatic intubation Additional Comments Negative epigastric sounds, Breath sound equal bilaterally with symmetric chest rise and fall us Ed Dale MD ANESTHESIA ORDERABLES Final R esult documented in this encounter Visit Diagnoses Not on filedocumented in this encounter Administered Medications Inactive Administered Medications - up to 3 most recent administrations Medication Order MAR Action Action Date Dose Rate Site dexAMETHasone (DECADRON) injection Intravenous, As Needed, Starting on Sat11/11/24 at 0756 Given 11/11/2024 7:56 AM EDT 4 mg lidocaine (LTA KIT) 4 % laryngotracheal solution Topical, As Needed, Starting on Sat11/11/24 at 0748 Given 11/11/2024 7:48 AM EDT 1 each lidocaine PF 1% (XYLOCAINE) injection Intravenous, As Needed, Starting on Sat11/11/24 at 0746 Given 11/11/2024 7:46 AM EDT 50 mg ondansetron (ZOFRAN) injection Intravenous, As Needed, Starting on Sat11/11/24 at 0756 Given 11/11/2024 7:56 AM EDT 4 mg propofol (DIPRIVAN) injection Intravenous, As Needed, Starting on Sat11/11/24 at 0746 Given 11/11/2024 7:46 AM EDT 120 mg rocuronium (ZEMURON) injection Intravenous, As Needed, Starting on Sat11/11/24 at 0746 Given 11/11/2024 7:46 AM EDT 50 mg sodium chloride 0.9 % infusion Intravenous, Continuous PRN, Starting on Sat11/11/24 at 0742 New Bag 11/11/2024 7:42 AM EDT sugammadex (BRIDION) injection Intravenous, As Needed, Starting on Sat11/11/24 at 0828 Given 11/11/2024 8:28 AM EDT 200 mg documented in this encounter Care Teams Professor Of Surgery Relationship Specialty Start Date End Date Consuelo Arroyo MD [address] [place] [address] PCP - General Internal Medicine 02/13/18 documented as of this encounter
--- OUTSIDE RECORDS SUMMARY | 2024-11-20 10:37 | XMS_ITS | Encounter Summary ---
Author Organization [facility] Address [address] [place] [address] Care Team Providers Care Massage Coordinator Name Role Phone Consuelo Arroyo MD Primary Care Provider + Reason for Referral * MRI/CAT/PET Scan (Routine) - Closed Specialty Diagnoses / Procedures Referred By Contac t Referred To Contact Radiology Diagnoses Primary lung cancer, right Malignant neoplasm of upper lobe, right bronchus or lung Procedures NM PET/CT Skull Base to Mid Thigh Wayne Person MD [address] [place] [address] Phone: tel: fax: [place] [place] [address] Phone: tel: Referral ID Status Reason Start Date Expiration Date Visits Re quested Visits Authorized [id number] Closed 11/13/2024 02/12/2026 2 2 Reason for Visit * MRI/CAT/PET Scan (Routine) - Closed Specialty Diagnoses / Procedures Referred By Contac t Referred To Contact Radiology Diagnoses Primary lung cancer, right Malignant neoplasm of upper lobe, right bronchus or lung Procedures NM PET/CT Skull Base to Mid Thigh Wayne Person MD [address] [place] [address] Phone: tel: fax: [address] [address] [place] [address] Phone: tel: Referral ID Status Reason Start Date Expiration Date Visits Re quested Visits Authorized [id number] Closed 11/13/2024 02/12/2026 2 2 Encounter Details Date Type Department Care Team (Latest Contact Info) Description 11/20/2024 10:37 AM EDT - 11/20/2024 11:59 PM EDT Hospital Encounter [facility] PET [address] [place] [address] Primary lung cancer, right; Malignant neoplasm of upper lobe, right bronchus or lung Discharge Disposition: Home or Self Care Social [...] or training? Not on file Preferred Language Malay 11/04/2024 PHQ-2 Answer Date Recorded Retired PHQ-9: [...] Visit [facility] ENDOCRINOLOGY [address] [facility] [address] [place] [id number] Ahsan Alonso MD [address] [facility] [address] [place] [address] 10/14/2025 1:30 PM EDT Office Visit [facility] CARDIOLOGY [address] [place] [address] [place] [address] Hima Gonzalez MD [address] [facility] [address] [facility] [address] [place] [address] Pending Results Name Type Priority Associated Diagnoses Date /Time NM PET/CT Skull Base to Mid Thigh Imaging Routine Primary lung cancer, right Malignant neoplasm of upper lobe, right bronchus or lung 11/20/2024 12:08 PM EDT Scheduled Orders Name Type Priority Associated Diagnoses Orde r Schedule NM PET/CT Skull Base to Mid Thigh Imaging Routine Primary lung cancer, right Malignant neoplasm of upper lobe, right bronchus or lung Once for 1 Occurrences starting 11/20/2024 until 11/20/2024 documented as of this encounter Procedures Procedure Name Priority Date/Time Associated Diagnosis Comments POCT GLUCOSE FINGERSTICK Routine 11/20/2024 10:44 AM EDT documented in this encounter Results * (ABNORMAL) POC Glucose Once (11/20/2024 10:44 AM EDT) Glucose 266(H) 70 - 130 mg/dL 11/20/2024 10:50 AM EDT [facility] Blood 11/20/2024 10:4 4 AM EDT 11/20/2024 10:50 AM EDT Conuselo Arroyo MD POINT OF CARE TEST ORDER ERI Final Result [facility]
[address] [place] [address], documented in this encounter Visit Diagnoses Diagnosis Primary lung cancer, right Malignant neoplasm of upper lobe, right bronchus or lung documented in this encounter Administered Medications Inactive Administered Medications - up to 3 most recent administrations Medication Order MAR Action Action Date Dose Rate Site fludeoxyglucose F18 injection 1 dose 1 dose, Intravenous, Once in Imaging, On Sat11/20/24 at 1101, For 1 dose, Millicuries: 13.33 Given 11/20/2024 10:55 AM EDT 1 dose documented in this encounter Care Teams Massage Coordinator Relationship Specialty Start Date End Date Consuelo Arroyo MD [address] [place] [address] PCP - General Internal Medicine 02/13/18 documented as of this encounter
--- OUTSIDE RECORDS SUMMARY | 2024-11-20 10:37 | XMS_ITS | Encounter Summary ---
Author Organization [facility] Address [address] [place] [address] Care Team Providers Care Medical Csr Name Role Phone Consuelo Arroyo MD Primary Care Provider + Reason for Visit * MRI/CAT/PET Scan (Routine) - Closed Specialty Diagnoses / Procedures Referred By Contac t Referred To Contact Radiology Diagnoses Primary lung cancer, right Malignant neoplasm of upper lobe, right bronchus or lung Procedures NM PET/CT Skull Base to Mid Thigh Wayne Person MD [address] [place] [address] Phone: tel: fax: [facility] [address] [place] [address] Phone: tel: Referral ID Status Reason Start Date Expiration Date Visits Re quested Visits Authorized [id number] Closed 11/13/2024 02/12/2026 2 2 Encounter Details Date Type Department Care Team (Latest Contact Info) Description 11/20/2024 10:37 AM EDT - 11/20/2024 11:59 PM EDT Hospital Encounter [facility] PET [address] [facility] [place] [address] Arrived Discharge Disposition: Home or Self Care Social [...] or training? Not on file Preferred Language Montserratian 11/04/2024 PHQ-2 Answer Date Recorded Retired PHQ-9: [...] directed Every 28 (Twenty-Eight) Days. 1 each 11 10/27/2024 nebivolol (BYSTOLIC) 10 MG tablet Take [...] Description 01/25/2025 1:30 PM EDT Office Visit [facility] [address] [address] Ahsan Alonso MD [address] [facility] [address] [place] [address] 10/14/2025 1:30 PM EDT Office Visit [facility] [address] [facility] [place] [address] Hima Gonzalez MD [address] [place] [address] Pending Results Name Type Priority Associated Diagnoses Date /Time NM PET/CT Skull Base to Mid Thigh Imaging Routine Primary lung cancer, right Malignant neoplasm of upper lobe, right bronchus or lung 11/20/2024 12:08 PM EDT documented as of this encounter Visit Diagnoses Not on filedocumented in this encounter Care Teams Medical Csr Relationship Specialty Start Date End Date Consuelo Arroyo MD [address] [place] [address] PCP - General Internal Medicine 02/13/18 documented as of this encounter
--- NOTE | 2024-11-24 17:51 | XR_ITS ---
PROCEDURE INFORMATION: Exam: XR Left Elbow Exam date and time: 11/24/2024 6:05 PM Age: 79 years old Clinical indication: Injury or trauma; Fall; Other: Pain TECHNIQUE: Imaging protocol: Radiologic exam of the left elbow. Views: 3 or more views. COMPARISON: CR XR FOREARM LT 2V 11/24/2024 6:05 PM FINDINGS: Bones/joints: Acute, displaced radial neck fracture with displacement and rotation of the radial head into the elbow joint. Posterior dislocation of the proximal ulna. There is a mildly displaced and comminuted fracture of the proximal ulna metaphysis. Large elbow effusion. Soft tissues: Marked swelling around the elbow. IMPRESSION: 1. Acute, displaced radial neck fracture with displacement and rotation of the radial head into the elbow joint. 2. Posterior dislocation of the proximal ulna. There is a mildly displaced and comminuted fracture of the proximal ulna metaphysis. There are no definite intra-articular components.
--- NOTE | 2024-11-24 17:51 | XR_ITS ---
PROCEDURE INFORMATION: Exam: XR Left Wrist Exam date and time: 11/24/2024 6:05 PM Age: 79 years old Clinical indication: Injury or trauma; Fall; Other: Pain TECHNIQUE: Imaging protocol: Radiologic exam of the left wrist. Views: 3 or more views. COMPARISON: CR XR FOREARM LT 2V 11/24/2024 6:05 PM FINDINGS: Bones/joints: Moderate degenerative changes of the thumb carpometacarpal joint. Postsurgical changes of the distal radius. The hardware is intact. No acute fracture or dislocation. Soft tissues: Normal. IMPRESSION: No acute fracture or dislocation.
--- NOTE | 2024-11-24 17:51 | XR_ITS ---
PROCEDURE INFORMATION: Exam: XR Left Shoulder Exam date and time: 11/24/2024 6:05 PM Age: 79 years old Clinical indication: Injury or trauma; Fall; Other: Pain TECHNIQUE: Imaging protocol: Radiologic exam of the left shoulder. Views: 2 or more views. COMPARISON: CR XR ELBOW LT MIN 3V 11/24/2024 6:05 PM FINDINGS: Bones/joints: No acute fracture or dislocation. Lungs: Stigmata of old granulomatous disease. Soft tissues: Normal. IMPRESSION: No acute fracture or dislocation.
--- NOTE | 2024-11-24 17:51 | XR_ITS ---
PROCEDURE INFORMATION: Exam: XR Left Hand Exam date and time: 11/24/2024 6:05 PM Age: 79 years old Clinical indication: Injury or trauma; Fall; Other: Pain TECHNIQUE: Imaging protocol: Radiologic exam of the left hand. Views: 3 or more views. 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 Postsurgical changes of the distal radius. The hardware appears intact. No acute fracture or dislocation. Focal cortical thickening of the distal phalanx of the index finger of doubtful clinical significance. Soft tissues: Normal. IMPRESSION: No acute fracture or dislocation.
--- NOTE | 2024-11-24 17:51 | XR_ITS ---
PROCEDURE INFORMATION: Exam: XR Left Forearm Exam date and time: 11/24/2024 6:05 PM Age: 79 years old Clinical indication: Injury or trauma; Fall; Other: Pain TECHNIQUE: Imaging protocol: Radiologic exam of the left forearm. Views: 2 views. COMPARISON: CR XR HAND LT MIN 3V 11/24/2024 6:05 PM FINDINGS: Bones/joints: Acute, displaced radial neck fracture with displacement and rotation of the radial head into the elbow joint. Posterior dislocation of the proximal ulna. There is a mildly displaced and comminuted fracture of the proximal ulna metaphysis. Large elbow effusion. Postsurgical changes of the distal radius. The hardware appears intact. Soft tissues: Marked swelling around the elbow. IMPRESSION: 1. Acute, displaced radial neck fracture with displacement and rotation of the radial head into the elbow joint. 2. Posterior dislocation of the proximal ulna. There is a mildly displaced and comminuted fracture of the proximal ulna metaphysis. There are no definite intra-articular components.
[2024-11-24 17:55] VITALS: BP 153/93; PULSE 78; RESP 17; TEMP 36.7; O2SAT 99; BMI 27.4
[2024-11-24 18:00] VITALS: BP 131/76; PULSE 68; O2SAT 99
--- NOTE | 2024-11-24 18:05 | ED_ITS ---
<Statement entered by Gregory Dimas MD - 11/25/24 13:54> I was consulted by the PARAG, and we discussed the complexity of the problems being addressed. I approve the treatment and management plan for this patient's care in the emergency department, thus performing a substantive portion of the medical decision making. Patient's x-ray imaging was interpreted by me personally. She has evidence of a posteriorly dislocated left proximal ulna and displaced and comminuted fracture of the proximal ulna and radial neck. I discussed the patient's case with Dr. Pack who recommended proceeding with reduction of the fracture/dislocation and placing patient in a posterior long-arm splint and obtaining CT imaging of the arm postreduction. Patient consented for the procedure. See procedure notes for details. Patient did have a brief episode of hypoxia during the event that rapidly improved with bag valve ventilation. She did not require intubation. The fracture dislocation was successfully reduced using traction and countertraction. Postreduction x-ray films were obtained. This confirmed reduction of the dislocation. Patient was then placed in a posterior long-arm splint and a sling was applied to the left arm. She was then taken to CT scanner That showed moderately comminuted mildly displaced fracture of the proximal ulnar metadiaphysis. There is component extending through the coronoid process as well. This could represent an oblique distal type fracture. Displaced radial neck fracture with rotation of the radial head. The radial head is located along the lateral aspect of the Capitulum. There is irregularity of the lateral epicondyle and the capitellum of the humerus that may represent a nondisplaced fracture. Patient has returned to her p reprocedural baseline and is felt that she is appropriate for discharge at this time with close follow-up with Dr. Pack. Patient is being sent home with a short course of oxycodone to help with severe pain. Return precautions were given. All questions were answered. She demonstrated understanding and was agreement this plan. She was then discharged from the emergency department in stable condition. Gregory Dimas MD Discharge Plan Disposition Patient Disposition: Home, Self-Care Prescriptions Prescriptions: New oxycodone 5 mg tablet 5 mg PO Q6H PRN (Reason: pain) Qty: 12 0RF No Action venlafaxine 75 mg tablet 75 mg PO DAILY azathioprine 50 mg tablet 25 mg PO DAILY azithromycin 250 mg tablet 250 mg PO Q3W sitagliptin phosphate [Januvia] 100 mg tablet 100 mg PO DAILY insulin glargine [Lantus Solostar U-100 Insulin] 100 unit/mL (3 mL) insulin pen 17 unit SUB-Q QHS levothyroxine 88 mcg capsule 88 mcg PO DAILY metformin 500 mg tablet extended release 24 hr 500 mg PO BID insulin aspart U-100 [Novolog FlexPen U-100 Insulin] 100 unit/mL insulin pen 5 unit SUB-Q QACDINNER omeprazole 40 mg capsule,delayed release(DR/EC) 40 mg PO DAILY venlafaxine 75 mg tablet 75 mg PO DAILY prednisone 20 mg tablet 40 mg PO DAILY Qty: 60 0RF Rx Instructions: administer with food or milk potassium chloride [Klor-Con M20] 20 mEq tablet,ER particles/crystals 20 meq PO ONCE PRN furosemide 40 mg tablet 40 mg PO DAILY PRN (Reason: edema) vitamin B complex no.10-FA 400 mcg tablet extended release PO prednisone 20 mg tablet 20 mg PO DAILY Qty: 5 0RF Bystolic 10 mg tablet 10 mg PO DAILY Qty: 30 0RF diltiazem HCl 360 mg capsule,extended release 24hr 360 mg PO DAILY Qty: 30 5RF lisinopril 10 mg tablet 10 mg PO DAILY Qty: 30 0RF Referrals Follow up/Referrals: Anjel Pack DO [Staff Physician, Orthopedics] - See instructions Provider,Referral, [Primary Care Provider, Medical] - See instructions Activity Restrictions/Add. Instructions Additional Instructions/Restrictions: You were found to have a dislocation and fracture of your left elbow. Stay in the sling and splint until you are seen by the orthopedic team. Do not get the splint wet. If you do get the splint wet, it would need to be replaced immediately. I am giving you referral to Dr. Pack with orthopedic team. I encourage you to call their office tomorrow to set up a follow-up appointment. If you develop any new or worsening symptoms, or if you become concerned for your health for any reason, return to the emergency department for evaluation. You are being prescribed oxycodone for severe pain. Take this as prescribed. You can also take Tylenol to help with symptoms. Clinical Impressions Clinical Impression: Posterior dislocation of left elbow, Closed fracture of neck of left radius, Closed fracture of ulna, proximal, left Print Language Print Language: Turkish Discharge ED Provider: Gregory Dimas General Adult HPI <Iqra Bowers (ED), HISTOLOGY MANAGER - Last Filed: 11/24/24 19:17> General Chief complaint: Fall Stated complaint: fall Time Seen by Provider: 11/24/24 17:53 Mode of Arrival: EMS Source of Information: Patient and EMS Description of Symptoms (Recalled from ER Triage Doc. by RN): Patient reports she stepped on a walnut on her front ramp causing her to fall. Pt complains of pain in her left arm. Pt reports she had sx on the same arm a couple months ago from a wrist fx. History of Present Illness HPI narrative: 79-year-old female comes into the ED via EMS for stepping on a walnut that made her fall. She fell onto an outstretched arm causing pain in her left arm. She has pain in her wrist, forearm, elbow and shoulder. She arrives with a splint on her forearm from EMS. She did fracture her wrist and had surgery when we had her most recent blood. She states she had surgery in [place] with Dr. Drea Baumann. She is on Eliquis and aspirin. She does have leukemia and lung cancer. She recently had a biopsy and is supposed to have surgery to remove the cancer in her lungs any day. She says her supposed to call her tomorrow for an appointment. Related Data Home Medications ?Medication ?Instructions ?Recorded ?Confirmed azathioprine 50 mg tablet 25 mg PO DAILY 06/13/17 azithromycin 250 mg tablet 250 mg PO Q3W 06/13/17 insulin aspart U-100 100 unit/mL 5 unit SQ QACDINNER 0 06/13/17 (3 mL) subcutaneous pen (Novolog FlexPen U-100 Insulin aspart) insulin glargine 100 unit/mL (3 17 unit SQ QHS 8 mL) subcutaneous pen (Lantus Solostar U-100 Insulin) levothyroxine 88 mcg capsule 88 mcg PO DAILY 06/13/17 metformin 500 mg tablet,extended 500 mg PO BID 8 release 24 hr omeprazole 40 mg capsule,delayed 40 mg PO DAILY release sitagliptin phosphate 100 mg 100 mg PO DAILY 06/13/17 tablet (Januvia) venlafaxine 75 mg tablet 75 mg PO DAILY 06/13/17 venlafaxine 75 mg tablet 75 mg PO DAILY 06/27/17 furosemide 40 mg tablet 40 mg PO DAILY PRN edema 09/23 potassium chloride 20 mEq 20 meq PO ONCE PRN 09/11/17 tablet,extended release(part/cryst) (Klor-Con M) vitamin B complex no.10-folic ac mcg PO 09/11/17 ER 400 mcg tablet,extended release Previous Rx's ?Medication ?Instructions ?Recorded prednisone 20 mg tablet 40 mg (2 x 20 mg) PO DAILY # 60 tabs 06/13/17 prednisone 20 mg tablet 20 mg PO DAILY #5 tabs 09/11 nebivolol 10 mg tablet (Bystolic) 10 mg PO DAILY #30 t abs 04/09/18 diltiazem HCl 360 mg 360 mg PO DAILY #30 caps 11/24 capsule,extended release 24 hr lisinopril 10 mg tablet 10 mg PO DAILY #30 tabs 12/07 11/24 oxycodone 5 mg tablet 5 mg PO Q6H PRN pain #12 tab s 11/24/24 Allergies Allergy/AdvReac Type Severity Reaction Status Date / Time No Known Allergies Allergy Verified 09/11/17 12:12 [facility] <Iqra Bowers (ED), HISTOLOGY MANAGER - Last Filed: 11/24/24 19:17> [facility] Disclaimer: The information contained in this section may have been updated after the patient was seen, as this information can be updated by other users. Social History (Updated 11/24/24 @ 19:17 by Iqra Bowers (ED), HISTOLOGY MANAGER) Smoking Status: Never smoker alcohol intake: current alcohol intake frequency: holidays/special occasions only current occupational status: other Travel in the last 8 weeks?: None Other Medical History Have you received the Flu Vaccine for this season: No <Iqra Bowers (ED), HISTOLOGY MANAGER - Last Filed: 11/24/24 19:17> ROS Obtained: Yes Systems reviewed as appropriate & no additional complaints except as documented Constitutional Constitutional: Reports as per HPI Physical Exam <Iqra Bowers (ED), HISTOLOGY MANAGER - Last Filed: 11/24/24 19:17> General General appearance: alert and in no apparent distress Head Head exam: normocephalic Eye Eye exam: Present PERRL and EOMI ENT ENT exam: Present normal oropharynx and mucous membranes moist Neck Neck exam: Present full ROM and trachea midline Respiratory Respiratory exam: Present normal lung sounds bilaterally Cardiovascular Cardiovascular exam: Present regular rate, normal rhythm, normal heart sounds, +S1 and +S2 Abdominal Exam Abdominal exam: Present soft and normal bowel sounds Extremities Exam Extremities exam: Present tenderness (Left arm) and normal capillary refill Neurological Exam Neurological exam: Present alert, oriented X3 and normal gait Skin Skin exam: Present warm, dry and intact Medical Decision Making <Iqra Bowers (ED), HISTOLOGY MANAGER - Last Filed: 11/24/24 19:17> Medical Records Screening: Per USPSTF and CDC recommendations, given the prevalence of disease in our region, it is our hospital?s policy to screen for HIV and viral Hepatitis for all patients aged 18 and over and those with ongoing risk factors. Thom Inquiry Pt receiving controlled substance: No Thom was queried for this patient: No Vital Signs: 11/24/24 17:55 11/24/24 18:00 11/24/24 20:00 Temperature 98.1 F 97.8 F Temperature Source Oral Oral Pulse Rate 68 78 Pulse Rate [Right Brachial] 78 Respiratory Rate 17 18 Blood Pressure 131/76 135/61 Blood Pressure [Right Arm] 153/93 H Blood Pressure Mean [Right Arm] 113 Blood Pressure Source [Right Arm] Automatic Cuff Blood Pressure Position Supine Blood Pressure Position [Right Arm] Sitting 02 Sat by Pulse Oximetry 99 99 100 Oxygen Delivery Method Room Air Room Air Room Air 11/24/24 21:00 11/24/24 22:00 11/24/24 22:09 Temperature 97.8 F 97.6 F 98.1 F Temperature Source Oral Oral Pulse Rate 77 78 87 Pulse Rate [Right Brachial] Respiratory Rate 16 18 22 Blood Pressure 127/80 135/61 130/69 Blood Pressure [Right Arm] Blood Pressure Mean [Right Arm] Blood Pressure Source [Right Arm] Blood Pressure Position Supine Blood Pressure Position [Right Arm] 02 Sat by Pulse Oximetry 100 100 Oxygen Delivery Method Room Air Room Air Room Air Orders (Tests/Meds): ED MEDICATIONS Discontinued Medications Generic Name Dose Route Start Last Admin Trade Name Freq PRN Reason Stop Dose Admin Hydrocodone Bitart/Acetaminophen 2 tab 11/24/24 17:51 11/24/24 19:01 Hydrocodone/Apap 5/325 Mg Tablet PO 11/24/24 17:52 2 tab ONCE ONE Administration Ondansetron HCl 4 mg 11/24/24 17:51 11/24/24 19:01 Ondansetron 4mg Odt SL 11/24/24 17:52 4 mg ONCE ONE Administration Oxycodone HCl 5 mg 11/24/24 21:40 11/24/24 21:48 Oxycodone 5mg Immediate Release Tablet PO 11/24/24 21:41 5 mg ONCE ONE Administration Propofol 200 mg 11/24/24 19:48 11/24/24 20:52 Propofol 10mg/Ml 20ml Vial IV 11/24/24 19:49 Not Given ONCE ONE Propofol 70 mg 11/24/24 20:54 11/24/24 20:29 Propofol 10mg/Ml 20ml Vial IV 11/24/24 20:55 70 mg ONCE ONE Administration ORDERS Category Date Time Status CT elbow LT wo con Stat Cat Scan 11/24/24 20:45 Completed Elbow XR left 2 views [XR elbow LT 2V] Stat Exams 11/24/24 20:28 Completed Elbow XR left mininum 3 views [XR elbow LT min 3V] Stat Exams 11/24/24 17:51 Completed Forearm XR left 2 views [XR forearm LT 2V] Stat Exams 11/24/24 17:51 Completed Hand XR left minimum 3 views [XR hand LT min 3V] Stat Exams 11/24/24 17:51 Completed Shoulder XR left minimum 2 views [XR shoulder LT min 2V Exams 11/24/24 17:51 Completed ] Stat Wrist XR left minimum 3 views [XR wrist LT min 3V] Stat Exams 11/24/24 17:51 Completed Medical Decision Narrative: patient is a 79-year-old female presenting to the emergency department for evaluation of left arm pain after falling on a walnut. Patient is hemodynamically stable and nontoxic-appearing upon arrival, afebrile. Differential diagnosis includes fracture versus sprain strain of left arm. Workup will be conducted with hematologic labs, specific imaging. Initial inventions include analgesics. Initial x-ray of elbow shows fractures apparent. Will wait for formal reads. <Gregory Dimas MD - Last Filed: 11/25/24 13:50> Vital Signs: 11/24/24 17:55 11/24/24 18:00 11/24/24 20:00 Temperature 98.1 F 97.8 F Temperature Source Oral Oral Pulse Rate 68 78 Pulse Rate [Right Brachial] 78 Respiratory Rate 17 18 Blood Pressure 131/76 135/61 Blood Pressure [Right Arm] 153/93 H Blood Pressure Mean [Right Arm] 113 Blood Pressure Source [Right Arm] Automatic Cuff Blood Pressure Position Supine Blood Pressure Position [Right Arm] Sitting 02 Sat by Pulse Oximetry 99 99 100 Oxygen Delivery Method Room Air Room Air Room Air 11/24/24 21:00 11/24/24 22:00 11/24/24 22:09 Temperature 97.8 F 97.6 F 98.1 F Temperature Source Oral Oral Pulse Rate 77 78 87 Pulse Rate [Right Brachial] Respiratory Rate 16 18 22 Blood Pressure 127/80 135/61 130/69 Blood Pressure [Right Arm] Blood Pressure Mean [Right Arm] Blood Pressure Source [Right Arm] Blood Pressure Position Supine Blood Pressure Position [Right Arm] 02 Sat by Pulse Oximetry 100 100 Oxygen Delivery Method Room Air Room Air Room Air Orders (Tests/Meds): ED MEDICATIONS Discontinued Medications Generic Name Dose Route Start Last Admin Trade Name Freq PRN Reason Stop Dose Admin Hydrocodone Bitart/Acetaminophen 2 tab 11/24/24 17:51 11/24/24 19:01 Hydrocodone/Apap 5/325 Mg Tablet PO 11/24/24 17:52 2 tab ONCE ONE Administration Ondansetron HCl 4 mg 11/24/24 17:51 11/24/24 19:01 Ondansetron 4mg Odt SL 11/24/24 17:52 4 mg ONCE ONE Administration Oxycodone HCl 5 mg 11/24/24 21:40 11/24/24 21:48 Oxycodone 5mg Immediate Release Tablet PO 11/24/24 21:41 5 mg ONCE ONE Administration Propofol 200 mg 11/24/24 19:48 11/24/24 20:52 Propofol 10mg/Ml 20ml Vial IV 11/24/24 19:49 Not Given ONCE ONE Propofol 70 mg 11/24/24 20:54 11/24/24 20:29 Propofol 10mg/Ml 20ml Vial IV 11/24/24 20:55 70 mg ONCE ONE Administration ORDERS Category Date Time Status CT elbow LT wo con Stat Cat Scan 11/24/24 20:45 Completed Elbow XR left 2 views [XR elbow LT 2V] Stat Exams 11/24/24 20:28 Completed Elbow XR left mininum 3 views [XR elbow LT min 3V] Stat Exams 11/24/24 17:51 C ompleted Forearm XR left 2 views [XR forearm LT 2V] Stat Exams 11/24/24 17:51 Completed Hand XR left minimum 3 views [XR hand LT min 3V] Stat Exams 11/24/24 17:51 Completed Shoulder XR left minimum 2 views [XR shoulder LT min 2V Exams 11/24/24 17:51 Completed ] Stat Wrist XR left minimum 3 views [XR wrist LT min 3V] Stat Exams 11/24/24 17:51 Completed Procedures <Gregory Dimas MD - Last Filed: 11/25/24 13:50> Orthopedic Fracture Reduction Fracture #1: Time Out Performed: Yes Side: left Fracture Reduction Location: radius, ulna and other (left posterior elbow dislocation) Analgesia: procedural sedation Technique: traction/counter-traction Post Reduction X-rays Demonstrate: acceptable reduction Post-reduction neuro exam: intact Post-reduction vascular exam: intact Splint Applied: Yes (posterior long arm splint) Patient Tolerated Procedure: well Procedural Sedation Presedation Evaluation: Patient reports that she has undergone sedation before without difficulty. She does not go. She has no history of sleep apnea. She does have a history of CHF. Mallampati score of 1. IV access was obtained. Room was set up with emergency airway equipment available, [id number] available, continuous blood pressure and SpO2 monitoring available. Patient was consented and agreeable to proceed with sedation. Mallampati Score:: Class I Indication: fracture/dislocation reduction Preparation: lunchroom monitor applied, pulse oximeter, supplemental O2 applied, suction/airway equipment at bedside and IV secured IV Propofol dose (mg): 70 Complications: hypoxia (Patient became hypoxic briefly to 40% SpO2 but improved rapidly with [id number] ventilation and jaw thrust maneuvers.) Interventions: oxygen applied, airway repositioned and assist by BVM Critical Care <Iqra Bowers (ED), HISTOLOGY MANAGER - Last Filed: 11/24/24 19:17> Critical Care Time Critical Care Time: No
--- OUTSIDE RECORDS SUMMARY | 2024-11-24 18:06 | XMS_ITS | Encounter Summary ---
[facility] Address [address] [place] [address] Care Team Providers Care Shrimping Boat Captain Name Role Phone Consuelo Arroyo MD Primary Care Provider + Encounter Details Date Type Department Care Team (Late st Contact Info) Description 10/02/2024 Telephone [facility] PULMONARY & CRITICAL CARE MEDICINE [address] [place] [address] Lynda Durham, SETTLEMENT WORKER [address] [place] [address] Social History Tobacco Use Types Packs/Day Years [...] on file documented as of this encounter Miscellaneous Notes * Telephone Encounter - Lynda Durham, KJ - 10/02/2024 12:26 PM EDT I called Ms. Nina to go over her labs as well as her CT scan and recommendations from Dr. Person. At this time I think we need to proceed with a bronchoscopy for that right upper lobe process. I was unable to leave a message. I will try to give her a call back again to go over the results. documented in this encounter Plan of Treatment Upcoming Encounters Date Type Department Care Team (Late st Contact Info) Description 01/25/2025 1:30 PM EDT Office Visit [facility] ENDOCRINOLOGY [address] [facility] [address] [place] [phone] Ahsan Alonso MD [address] [facility] [address] [place], [place] [phone] 10/14/2025 1:30 PM EDT Office Visit [facility] CARDIOLOGY [address] [address] [place] [address] Hima Gonzalez MD [address] [facility] [address] [place], [place] [phone] documented as of this encounter Visit Diagnoses Not on filedocumented in this encounter Care Teams Shrimping Boat Captain Relationship Specialty Start Date End Date Consuelo Arroyo MD [address] [place] [address] PCP - General Internal Medicine 02/13/18 documented as of this encounter
--- OUTSIDE RECORDS SUMMARY | 2024-11-24 18:06 | XMS_ITS | Encounter Summary ---
Author Organization [facility] Address [address] [place] [address] Care Team Providers Care News Content Specialist Name Role Phone Consuelo Arroyo MD Primary Care Provider + Reason for Visit * Reason Onset Date Comments Results 10/05/2024 Encounter Details Date Type Department Care Team (Late st Contact Info) Description 10/05/2024 Telephone [facility] PULMONARY & CRITICAL CARE MEDICINE [address] [place] [address] Lynda Durham, DOSIER OPERATOR [address] [place] [address] Results Social History Tobacco Use Types Packs/Day Years [...] Miscellaneous Notes * Telephone Encounter - Lynda Durham APRN - 10/05/2024 3:47 PM EDT I spoke with Ms Maico, since her labs where negative we will follow up on a bronch with navigational biopsy of that RUL lesion. Still having quit a bit of fatigue and tacticity intolerance. * Telephone Encounter - Deven Janice SC - 10/05/2024 9:30 AM EDT Patient returning your call regarding her results. 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 documented in this encounter Plan of Treatment Upcoming Encounters Date Type Department Care Team (Late st Contact Info) Description 01/25/2025 1:30 PM EDT Office Visit [facility] ENDOCRINOLOGY [address] [facility] [address] [place] [address] Ahsan Alonso MD [address] [facility] [address] [place] [address] 10/14/2025 1:30 PM EDT Office Visit [facility] CARDIOLOGY [address] [place] [address] [place] [address] Hima Gonzalez MD [address] [facility] [address] [place], [place] [phone] documented as of this encounter Visit Diagnoses Not on filedocumented in this encounter Care Teams News Content Specialist Relationship Specialty Start Date End Date Consuelo Arroyo MD [address] [place] [phone] PCP - General Internal Medicine 02/13/18 documented as of this encounter
--- OUTSIDE RECORDS SUMMARY | 2024-11-24 18:06 | XMS_ITS | Encounter Summary ---
[facility] Address [address] [place] [address] Care Team Providers Care Paramedic Supervisor Name Role Phone Consuelo Arroyo MD Primary Care Provider + Encounter Details Date Type Department Care Team (Late st Contact Info) Description 09/01/2024 Telephone [facility] PULMONARY & CRITICAL CARE MEDICINE [address] [place] [address] Lynda Durham, LABORER GENERAL [address] [place] [address] Social History Tobacco Use Types [...] on file documented as of this encounter Progress Notes * Marga Torres, BeckyD - 09/29/2024 8:42 AM EDTAddended by: MARGA TORRES on: 09/29/2024 08:42 AM Modules accepted: Orders * Kayla Spicer CMA - 09/01/2024 1:56 PM EDTAddended by: KAYLA SPICER on: 09/01/2024 01:56 PM Modules accepted: Orders documented in this encounter Miscellaneous Notes * Telephone Encounter - Kayla Spicer CMA - 09/01/2024 1:52 PM EDT Faxed order to [facility] [phone] * Telephone Encounter - Kayla Spicer CMA - 09/01/2024 1:44 PM EDT ----- Message from Alina Hawthorne sent at 09/01/2024 1:27 PM EDT ----- Turner,A nurse, [place], from outpatient infusion center called stating that they did not receive the prescription of Nucala from 08/06/2024, only from 08/05/2024. They gave me a callback number for the pharmacy at [phone], and a fax number of [phone]. Thank you,Alina documented in this encounter Plan of Treatment Upcoming Encounters Date Type Department Care Team (Late st Contact Info) Description 01/25/2025 1:30 PM EDT Office Visit [facility] ENDOCRINOLOGY [facility] [address] [phone] Ahsan Alonso MD [address] [place] [address] 10/14/2025 1:30 PM EDT Office Visit [facility] CARDIOLOGY [address] [place] [address] [address] [place] [address] Hima Gonzalez MD [address] [facility] [address] [place] [address] documented as of this encounter Visit Diagnoses Diagnosis Moderate persistent asthma without complication documented in this encounter Care Teams Paramedic Supervisor Relationship Specialty Start Date End Date Consuelo Arroyo MD [address] [place] [address] PCP - General Internal Medicine 02/13/18 documented as of this encounter
--- OUTSIDE RECORDS SUMMARY | 2024-11-24 18:07 | XMS_ITS | Encounter Summary ---
Author Organization [facility] Address [address] [place] [address] Care Team Providers Care Box Storage Worker Name Role Phone Consuelo Arroyo MD Primary Care Provider + Encounter Details Date Type Department Care Team (Late st Contact Info) Description 11/04/2024 Telephone [facility] ENDOCR[facility]OLOG[facility] [employer] [address] [address] Ahsan Alonso MD [facility] [employer] [address] [address] Social History Tobacco Use Types Packs/Day Years [...] or training? Not on file Preferred Language Mohawk 11/04/2024 PHQ-2 Answer Date Recorded Retired PHQ-9: Brief Depression Severity Measure Score 0 02/19/2023 Comments No Sex and Gender Information Value Date Recorded Sex Assigned at Not on file Legal Sex Female 10:51 AM EDT Gender Identity Not on file Sexual Orientation Not on file documented as of this encounter Miscellaneous Notes * Telephone Encounter - Cary Byrnes MA - 11/06/2024 10:56 AM EDT SPOKE TO PATIENT AND TOLD HER DR. ALONSO RECOMMENDATIONS. PATIENT VOICED UNDERSTANDING. * Telephone Encounter - Cary Byrnes MA - 11/05/2024 1:55 PM EDT ATTEMPTED TO CALL PATIENT BUT VM WAS FULL SO COULD NOT LEAVE MESSAGE. * Telephone Encounter - Cary Byrnes MA - 11/04/2024 2:53 PM EDT ATTEMPTED TO CALL PATIENT BUT NO ANSWER AND VM WAS FULL. * Telephone Encounter - Ahsan Alonso MD - 11/04/2024 2:37 PM EDT Take 1/3 of the usual lantus dose the night prior to the procedure and no novolog the am of the procedure * Telephone Encounter - Lizzy George - 11/04/2024 1:50 PM EDT Patient has an upcoming bronchoscopy scheduled on 11/11/2024 which she will need to be NPO after midnight for. Patient was advised to contact Dr Alonso regarding insulin usage for this procedure. Patient is currently using Novolog and Lantus. Call back [phone] documented in this encounter Plan of Treatment Upcoming Encounters Date Type Department Care Team (Late st Contact Info) Description 01/25/2025 1:30 PM EDT Office Visit [facility] ENDOCRINOLOGY [address] [facility] [address] [place] [address] Ahsan Alonso MD 1775 [facility] [address] [place], [place] [id number] 10/14/2025 1:30 PM EDT Office Visit [facility] CARDIOLOGY [address] [place] [address] Hima Gonzalez MD [facility] 400 [place] [address] documented as of this encounter Visit Diagnoses Not on filedocumented in this encounter Care Teams Box Storage Worker Relationship Specialty Start Date End Date Consuelo Arroyo MD 5 [place] [address] PCP - General Internal Medicine 02/13/18 documented as of this encounter
--- OUTSIDE RECORDS SUMMARY | 2024-11-24 18:07 | XMS_ITS | Encounter Summary ---
Author Organization [facility] Address [address] [place] [address] Care Team Providers Care Spot Washer Name Role Phone Consuelo Arroyo MD Primary Care Provider + Encounter Details Date Type Department Care Team (Late st Contact Info) Description 09/29/2024 Telephone [facility] PULMONARY & CRITICAL CARE MEDICINE [address] [place] [address] Jessica Resendez, PharmD [address] [place] [address] Social History Tobacco Use Types Packs/Day Years [...] encounter Miscellaneous Notes * Telephone Encounter - Jessica Resendez, PharmD - 09/29/2024 8:54 AM EDT Pharmacist called from [facility] stating the prescription they received for this patient's Nucala vial did not have refills. I have re-printed prescription with 11 refills as is scanned in and faxed to requested fax number of [phone]. Additionally, I did try to call the number provided to inform them of this at [phone]. documented in this encounter Plan of Treatment Upcoming Encounters Date Type Department Care Team (Late st Contact Info) Description 01/25/2025 1:30 PM EDT Office Visit [facility] ENDOCRINOLOGY [address] [facility] 50 [place] [phone] Ahsan Alonso MD 1775 [facility] 50 [place], [place] [id number] 10/14/2025 1:30 PM EDT Office Visit [facility] CARDIOLOGY [address] [place] [address] Hima Gonzalez MD 1720 [facility] [address] [place], [place] [id number] documented as of this encounter Visit Diagnoses Not on filedocumented in this encounter Care Teams Spot Washer Relationship Specialty Start Date End Date Consuelo Arroyo MD [address] [place] [address] PCP - General Internal Medicine 02/13/18 documented as of this encounter
--- OUTSIDE RECORDS SUMMARY | 2024-11-24 18:07 | XMS_ITS | Encounter Summary ---
[facility] Address [address] [place] [address] Care Team Providers Care Memorial Counselor Name Role Phone Consuelo Arroyo MD Primary Care Provider + Encounter Details Date Type Department Care Team (Late st Contact Info) Description 10/27/2024 Telephone [facility] PULMONARY & CRITICAL CARE MEDICINE [address] [place] [address] Jessica Resendez, PharmD [address] [place] [address] Social History Tobacco Use Types Packs/Day Years [...] Telephone Encounter - Jessica Resendez, PharmD - 10/27/2024 2:29 PM EDT [facility] called requesting new prescription for Nucala vial with ICD- 10 codes of M30.1 and D72.18. updated and faxed along with latest office notes per request. documented in this encounter Plan of Treatment Upcoming Encounters Date Type Department Care Team (Late st Contact Info) Description 01/25/2025 1:30 PM EDT Office Visit [facility] ENDOCRINOLOGY 1775 [facility] 50 [place] [phone] Ahsan Alonso MD 1775 [facility] 50 [place] [address] 10/14/2025 1:30 PM EDT Office Visit [facility] CARDIOLOGY [address] [place] [address] Hima Gonzalez MD 1720 [facility] E [facility] 400 [place] [address] documented as of this encounter Visit Diagnoses Not on filedocumented in this encounter Care Teams Memorial Counselor Relationship Specialty Start Date End Date Consuelo Arroyo MD [address] [place] [id number] PCP - General Internal Medicine 02/13/18 documented as of this encounter
--- OUTSIDE RECORDS SUMMARY | 2024-11-24 18:07 | XMS_ITS | Encounter Summary ---
Author Organization [facility] Address [address] [place] [address] Care Team Providers Care Systems Auditor Name Role Phone Consuelo Arroyo MD Primary Care Provider + Reason for Visit * Reason Comments Med Refill Encounter Details Date Type Department Care Team (Late st Contact Info) Description 10/05/2024 Refill [facility] CARDIOLOGY [address] [place] [address] Shyanne Tinajero S, EMERY GRINDER [address]20 [facility] [address] [place] [address] Med Refill Social History Tobacco Use Types Packs/Day Years [...] Description 01/25/2025 1:30 PM EDT Office Visit [facility] ENDOCRINOLOGY 1775 [facility] 50 [place] [phone] Ahsan Alonso MD 1775 [facility] 50 [place], [place] [phone] 10/14/2025 1:30 PM EDT Office Visit [facility] CARDIOLOGY [address] [place] [address] Hima Gonzalez MD 1720 [facility] [address] [place] [address] documented as of this encounter Visit Diagnoses Diagnosis Dyslipidemia Other and unspecified hyperlipidemia documented in this encounter Care Teams Systems Auditor Relationship Specialty Start Date End Date Consuelo Arroyo MD [address] [place] [address] PCP - General Internal Medicine 02/13/18 documented as of this encounter
--- OUTSIDE RECORDS SUMMARY | 2024-11-24 18:07 | XMS_ITS | Encounter Summary ---
Author Organization [facility] Address [address] [place] [address] Care Team Providers Care Tower Foreman Name Role Phone Consuelo Arroyo MD Primary Care Provider + Encounter Details Date Type Department Care Team (Latest Contact Info) Description 11/11/2024 Travel Social History Tobacco Use Types Packs/Day Years [...] or training? Not on file Preferred Language Georgian 11/04/2024 PHQ-2 Answer Date Recorded Retired PHQ-9: [...] Description 01/25/2025 1:30 PM EDT Office Visit [facility] ENDOCRINOLOGY [address] [facility] 50 [place] [phone] Ahsan Alonso MD 1775 [facility] 50 [place] [address] 10/14/2025 1:30 PM EDT Office Visit [facility] CARDIOLOGY [address] [place] [address] Hima Gonzalez MD 1720 [facility] [address] [place] [address] documented as of this encounter Visit Diagnoses Not on filedocumented in this encounter Care Teams Tower Foreman Relationship Specialty Start Date End Date Consuelo Arroyo MD [address] [place] [address] PCP - General Internal Medicine 02/13/18 documented as of this encounter
--- OUTSIDE RECORDS SUMMARY | 2024-11-24 18:07 | XMS_ITS | Encounter Summary ---
Author Organization [facility] Address [address] [place] [address] Care Team Providers Care Cardroom Attendant Name Role Phone Consuelo Arroyo MD Primary Care Provider + Encounter Details Date Type Department Care Team (Latest Contact Info) Description 11/04/2024 Travel Social History Tobacco Use Types Packs/Day [...] or training? Not on file Preferred Language Kazakh 11/04/2024 PHQ-2 Answer Date Recorded Retired PHQ-9: [...] Visit [facility] ENDOCRINOLOGY 1775 [facility] 50 [place] [phone] Ahsan Alonso MD 1775 [facility] 50 [place] [address] 10/14/2025 1:30 PM EDT Office Visit [facility] CARDIOLOGY [address] [place] [address] Hima Gonzalez MD 1720 [facility] [address] [place] [address] documented as of this encounter Visit Diagnoses Not on filedocumented in this encounter Care Teams Cardroom Attendant Relationship Specialty Start Date End Date Consuelo Arroyo MD [address] [place] [address] PCP - General Internal Medicine 02/13/18 documented as of this encounter
--- OUTSIDE RECORDS SUMMARY | 2024-11-24 18:07 | XMS_ITS | Encounter Summary ---
[facility] Address [address] [place] [address] Care Team Providers Care [employer] Social Studies Tutor Name Role Phone Consuelo Arroyo MD Primary Care Provider + Reason for Visit * Reason Comments Med Refill Encounter Details Date Type Department Care Team (Late st Contact Info) Description 11/11/2023 Refill [facility] CARDIOLOGY [address] [place] [address] Hima Gonzalez MD 1720 [facility] [address] [place] [address] Med Refill Social History Tobacco [...] Description 01/25/2025 1:30 PM EDT Office Visit [facility] ENDOCRINOLOGY 1775 [facility] 50 [place] [phone] Ahsan Alonso MD [address]75 [facility] [address] [place], [place] [phone] 10/14/2025 1:30 PM EDT Office Visit [facility] CARDIOLOGY [address] [place] [address] Hima Gonzalez MD 1720 [facility] [address] [place] [address] documented as of this encounter Visit Diagnoses Diagnosis Localized edema Edema Churg-Britni syndrome Elenita's granulomatosis Multiple pulmonary nodules Other diseases of lung, not elsewhere classified Mild intermittent asthma without complication Type 2 diabetes mellitus with complication, with long-term current use 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
--- OUTSIDE RECORDS SUMMARY | 2024-11-24 18:07 | XMS_ITS | Encounter Summary ---
Author Organization [facility] Address [address] [place] [address] Care Team Providers Care Claims Processor Name Role Phone Consuelo Arroyo MD Primary Care Provider + Encounter Details Date Type Department Care Team (Latest Contact Info) Description 11/02/2024 Travel Social History Tobacco Use Types Packs/Day [...] Description 01/25/2025 1:30 PM EDT Office Visit [facility] ENDOCRINOLOGY [address] [address] Ahsan Alonso MD [address] [address] 10/14/2025 1:30 PM EDT Office Visit [facility] CARDIOLOGY [address] [place] [address] [address] [place] [address] Hima Gonzalez MD 1720 [facility] [address] [place] [address] documented as of this encounter Visit Diagnoses Not on filedocumented in this encounter Care Teams Claims Processor Relationship Specialty Start Date End Date Consuelo Arroyo MD [address] [place] [address] PCP - General Internal Medicine 02/13/18 documented as of this encounter
--- OUTSIDE RECORDS SUMMARY | 2024-11-24 18:07 | XMS_ITS | Encounter Summary ---
Author Organization [facility] Address [address] [place] [address] Care Team Providers Care Contract Preparer Name Role Phone Consuelo Arroyo MD Primary Care Provider + Encounter Details Date Type Department Care Team (Latest Contact Info) Description 10/06/2024 Travel Social History Tobacco Use Types Packs/Day [...] Description 01/25/2025 1:30 PM EDT Office Visit [facility] ENDOCRINOLOGY [address] [address] Ahsan Alonso MD [address] [address] 10/14/2025 1:30 PM EDT Office Visit [facility] CARDIOLOGY [address] [place] [address] Hima Gonzalez MD 1720 [facility] [address] [place] [address] documented as of this encounter Visit Diagnoses Not on filedocumented in this encounter Care Teams Contract Preparer Relationship Specialty Start Date End Date Consuelo Arroyo MD [address] [place] [address] PCP - General Internal Medicine 02/13/18 documented as of this encounter
--- OUTSIDE RECORDS SUMMARY | 2024-11-24 18:07 | XMS_ITS | Encounter Summary ---
Author Organization [facility] Address [address] [place] [address] Care Team Providers Care Hearing Consultant Name Role Phone Consuelo Arroyo MD Primary Care Provider + Encounter Details Date Type Department Care Team (Latest Contact Info) Description 11/20/2024 Travel Social History Tobacco Use Types Packs/Day [...] or training? Not on file Preferred Language Luxembourgish 11/04/2024 PHQ-2 Answer Date Recorded Retired PHQ-9: [...] 01/25/2025 1:30 PM EDT Office Visit [facility] ENDOCR[facility]OLOGY 1775 [facility] 50 [place] [phone] Ahsan Alonso MD 1775 [facility] 50 [place] [address] 10/14/2025 1:30 PM EDT Office Visit [facility] CARDIOLOGY [address] [place] [address] Hima Gonzalez MD 1720 [facility] [address] [place] [address] documented as of this encounter Visit Diagnoses Not on filedocumented in this encounter Care Teams Hearing Consultant Relationship Specialty Start Date End Date Consuelo Arroyo MD [address] [place] [address] PCP - General Internal Medicine 02/13/18 documented as of this encounter
--- OUTSIDE RECORDS SUMMARY | 2024-11-24 18:07 | XMS_ITS | Encounter Summary ---
Author Organization [facility] Address [address] [place] [address] Care Team Providers Care Casino Slot Supervisor Name Role Phone Consuelo Arroyo MD Primary Care Provider + Encounter Details Date Type Department Care Team (Late st Contact Info) Description 10/06/2024 Prep for Surgery [facility]DERS ONLY [address] [place] [address] Wayne Person MD [address] [place], [place] [id number] Right upper lobe pulmonary nodule (Primary Dx) Social History Tobacco Use Types Packs/Day Years [...] Office Visit [facility] ENDOCRINOLOGY [address] [address] Ahsan Alonso MD [address] [place] [address] 10/14/2025 1:30 PM EDT Office Visit [facility] CARDIOLOGY [address] [place] [address] Hima Gonzalez MD 1720 [facility] [address] [place] [address] documented as of this encounter Results * APTT (11/04/2024 12:06 PM EDT) Pathologist [facility] PTT 28.7 22.0 - 39.0 seconds 11/04/2024 1:02 PM EDT [facility] Blood Venipuncture / Unknown 11/04/2024 12:06 PM EDT 11/04/2024 12:46 PM EDT Narrative [facility] - 11/04/2024 1:02 PM EDT PTT = The equivalent PTT values for the therapeutic range of heparin levels at 0.3 to 0.5 U/ml are 60 to 70 seconds. Wayne Person MD LAB BLOOD ORDERABLES Fi nal Result [facility]
[address] [place] [address], * (ABNORMAL) Protime-INR (11/04/2024 12:06 PM EDT) Protime 15.3 12.2 - 15.3 Seconds 11/04/2024 1:02 PM EDT [facility] INR 1.14(H) 0.89 - 1.12 11/04/2024 1:02 PM EDT [facility] Blood Venipuncture / Unknown 11/04/2024 12:06 PM EDT 11/04/2024 12:46 PM EDT us Wayne Perosn MD LAB BLOOD ORDERABLES Fi nal Result [facility]
[address] [place] [address], * (ABNORMAL) Comprehensive Metabolic Panel (11/04/2024 12:06 PM EDT) Glucose 248(H) 65 - 99 mg/dL 11/04/2024 1:11 PM EDT [facility] BUN 23.1(H) 8.0 - 23.0 mg/dL 11/04/2024 1:11 PM EDT [facility] Creatinine 1.20(H) 0.57 - 1.00 mg/dL 11/04/2024 1:11 PM EDT [facility] Sodium 136 136 - 145 mmol/L 11/04/2024 1:11 PM EDT [facility] Potassium 4.1 3.5 - 5.2 mmol/L 11/04/2024 1:11 PM EDT [facility] Chloride 103 98 - 107 mmol/L 11/04/2024 1:11 PM EDT [facility] CO2 22.7 22.0 - 29.0 mmol/L 11/04/2024 1:11 PM EDT [facility] Calcium 9.1 8.6 - 10.5 mg/dL 11/04/2024 1:11 PM EDT [facility] Total Protein 6.3 6.0 - 8.5 g/dL 11/04/2024 1:11 PM EDT [facility] Albumin 3.7 3.5 - 5.2 g/dL 11/04/2024 1:11 PM EDT [facility] ALT (SGPT) 55(H) 1 - 33 U/L 11/04/2024 1:11 PM EDT [facility] AST (SGOT) 41(H) 1 - 32 U/L 11/04/2024 1:11 PM EDT [facility] Alkaline Phosphatase 233(H) 39 - 117 U/L 11/04/2024 1:11 PM EDT [facility] Total Bilirubin 0.5 0.0 - 1.2 mg/dL 11/04/2024 1:11 PM EDT [facility] Globulin 2.6 gm/dL 11/04/2024 1:11 PM EDT [facility] Comment:Calculated Result A/G Ratio 1.4 g/dL 11/04/2024 1:11 PM EDT [facility] BUN/Creatinine Ratio 19.3 7.0 - 25.0 11/04/2024 1:11 PM EDT [facility] Anion Gap 10.3 5.0 - 15.0 mmol/L 11/04/2024 1:11 PM EDT [facility] eGFR 46.7(L) >60.0 mL/min/1.7 3 11/04/2024 1:11 PM EDT [facility] Blood Venipuncture / Unknown 11/04/2024 12:06 PM EDT 11/04/2024 12:46 PM EDT Narrative [facility] - 11/04/2024 1:11 PM EDT GFR [...] MD LAB BLOOD ORDERABLES Fi nal Result [facility]
[address] [place] [address], documented in this encounter Visit Diagnoses Diagnosis Right upper lobe pulmonary nodule- Primary documented in this encounter Care Teams Casino Slot Supervisor Relationship Specialty Start Date End Date Consuelo Arroyo MD [address] [place] [address] PCP - General Internal Medicine 02/13/18 documented as of this encounter
--- OUTSIDE RECORDS SUMMARY | 2024-11-24 18:07 | XMS_ITS | Encounter Summary ---
Author Organization [facility] Address [address] [place] [address] Care Team Providers Care Head Sawyer Name Role Phone Consuelo Arroyo MD Primary Care Provider + Reason for Visit * Reason Onset Date Comments - MEDICAL CONCERN 10/23/2024 Encounter Details Date Type Department Care Team (Late st Contact Info) Description 10/23/2024 Telephone [facility] CARDIOLOGY [address] [facility] [address] [place] [address] Hima Gonzalez MD 1720 [facility] [address] [place] [address] - MEDICAL CONCERN Social History Tobacco Use Types Packs/Day Years [...] encounter Miscellaneous Notes * Telephone Encounter - Arely Palafox RegSched Rep - 10/27/2024 2:23 PM EDT Spoke with pt to inform her that I have req'd records and will call her as soon as I get them. Pt verbalized understanding * Telephone Encounter - Zehra Oconnor RN - 10/23/2024 1:12 PM EDT Spoke to pt and informed her she needs to take both the Eliquis and the Nebivolol as they are for different things. She verbalized understanding. Pt states she was only in the ER. She was sent from her primary care doctor's office after an appt with them. I have called and left a voicemail with [facility] for them to send the ER records to us. PCP office note in media. Called pcp office to request EKG they did to be faxed to us. Forwarding to schedulers to contact pt for hospital follow up appt for afib. * Telephone Encounter - Michaela Merida RegSched Rep - 10/23/2024 11:31 AM EDT Caller: Lili Nina Relationship: SELF Best call back number:[phone] What is your medical concern? PT WAS SEEN BY [facility] FOR AFIB. THEY PUT HER ON A NEW MEDICATION, ELIQUIS 5MG TWICE A DAY. SHE WOULD LIKE TO KNOW IF SHE CAN TAKE THAT AND HER NEBIVOLOL AT THE SAME TIME. PLEASE REACH OUT TO THE PT TO ADDRESS THIS. How long has this issue been going on? SHE WAS SEEN 10.16.24 - PT STARTED TAKING THE ELIQUIS AND STOPPED THE NEBIVOLOL ON 10.16.24. documented in this encounter Plan of Treatment Upcoming Encounters Date Type Department Care Team (Late st Contact Info) Description 01/25/2025 1:30 PM EDT Office Visit [facility] ENDOCRINOLOGY [address] [facility] [address] [place] [phone] Ahsan Alonso MD [address]75 [facility] [address] [place] [address] 10/14/2025 1:30 PM EDT Office Visit [facility] CARDIOLOGY [address] [place] [address] [place] [address] Hima Gonzalez MD [address] [facility] [address] [place] [address] documented as of this encounter Visit Diagnoses Not on filedocumented in this encounter Care Teams Head Sawyer Relationship Specialty Start Date End Date Consuelo Arroyo MD [address] [place] [address] PCP - General Internal Medicine 02/13/18 documented as of this encounter
--- OUTSIDE RECORDS SUMMARY | 2024-11-24 18:07 | XMS_ITS | Encounter Summary ---
[facility] Address [address] [place] [address] Care Team Providers Care Farmer Cash Grain Name Role Phone Consuelo Arroyo MD Primary Care Provider + Encounter Details Date Type Department Care Team (Late st Contact Info) Description 11/06/2024 Telephone [facility] [address] [facility] [address] [place] [address] Ahsan Alonso MD [address] [facility] [address] [place] [address] Social History Tobacco Use Types Packs/Day [...] or training? Not on file Preferred Language Bengali 11/04/2024 PHQ-2 Answer Date Recorded Retired PHQ-9: Brief Depression Severity Measure Score 0 02/19/2023 Comments No Sex and Gender Information Value Date Recorded Sex Assigned at Not on file Legal Sex Female 10:51 AM EDT Gender Identity Not on file Sexual Orientation Not on file documented as of this encounter Miscellaneous Notes * Telephone Encounter - Cary Byrnes MA - 11/06/2024 11:29 AM EDT SPOKE TO PATIENT AND VERIFIED THE AMOUNT OF INSULIN TO TAKE PRIOR TO SURGERY. PATIENT VOICED UNDERSTANDING. * Telephone Encounter - Jimena Askew RegSched Rep - 11/06/2024 11:09 AM EDT SPOKE TO NURSE EARLIER AND NURSE STATED TO TAKE 1/3 OF LANTUS BEFORE SURGERY. PT IS NOT SURE HOW TODETERMINE HOW MUCH 1/3 OF THE MEDICATION IS. PT WOULD LIKE A RETURN PHONE CALL. documented in this encounter Plan of Treatment Upcoming Encounters Date Type Department Care Team (Late st Contact Info) Description 01/25/2025 1:30 PM EDT Office Visit [facility] END[facility]CR[facility] [address] [facility] [address] [place] [id number] Ahsan Alonso MD [address] [facility] [address] [place] [address] 10/14/2025 1:30 PM EDT Office Visit [facility] CARDIOLOGY [address] [place] [address] [place] [address] Hima Gonzalez MD [address] [facility] [address] [place], [place] [id number] documented as of this encounter Visit Diagnoses Not on filedocumented in this encounter Care Teams Farmer Cash Grain Relationship Specialty Start Date End Date Consuelo Arroyo MD [facility] [place] [address] PCP - General Internal Medicine 02/13/18 documented as of this encounter
--- OUTSIDE RECORDS SUMMARY | 2024-11-24 18:07 | XMS_ITS | Clinical Summary ---
Author Organization [facility] Address [address] [place] [address] Care Team Providers Care Supervisor Water Treatment Plant Name Role Phone Consuelo Arroyo MD Primary Care Provider [phone]- [phone] Social History Tobacco Use Types Packs/Day Years Used Date Smoking Tobacco: Former Comments Unknown Sex and Gender Information Value Date Recorded Sex Assigned at Not on file Legal Sex Female 8:45 PM EDT Gender Identity Not on file Sexual Orientation Not on file Last Filed Vital Signs Vital Sign Reading Time Taken Comments Blood Pressure - - Pulse - - Temperature - - Respiratory Rate - - Oxygen Saturation - - Inhaled Oxygen Concentration - - Weight 60.3 kg (133 lb 0.1 oz) 06/24/2013 1:47 P M EDT Height 162.6 cm (5' 4 ) 06/24/2013 1:47 PM EDT Body Mass Index 22.83 06/24/2013 1:47 PM EDT Plan of Treatment Health Maintenance Due Date Last Done Comments [facility]-Bone Density Scan 1945 [facility]-Depression Screening 1945 [facility]-Diabetes: Hemoglobin A1C 1945 [facility]-Hepatitis C Screening 1945 [facility]-Medicare Annual Wellness (AWV) 1945 [facility]-/Child/Adol SDOH Screenings 1945 Diabetes: Dental Exam 08/19/1957 [facility]- SDOH Screenings 08/19/1965 [facility]-Adult SDOH Screenings 08/19/1965 [facility]-DTaP,Tdap,and Td Vaccines (1 - Tdap) 08/19/1966 [facility]-Pneumococcal Vaccine: 50+ Years (1 of 2 - PCV) 08/19/1966 [facility]-Zoster Vaccines (1 of 2) 08/19/1997 [facility]-RSV Vaccine: 60+ Years or (1 - 1-dose 75+ series) 08/19/2022 [id number] Vaccine ( season) 2023 07/13/2021, 01/05/2021, 06/30/2020, Additional history exists [facility]-Influenza Vaccine (#1) 12/07/202401/05, 12/30/2021, 12/31/2020, Additional history exists HPV Vaccines Aged Out No longer eligi ble based on patient's age to complete this topic [facility]-HIB Vaccines Aged Out No longer e ligible based on patient's age to complete this topic [facility]-Hepatitis A Vaccines Aged Out No longer eligible based on patient's age to complete this topic [facility]-IPV Vaccines Aged Out No longer e ligible based on patient's age to complete this topic [facility]-Rotavirus Vaccines Aged Out No lo nger eligible based on patient's age to complete this topic Insurance [facility] MEDICARE Care Teams Supervisor Water Treatment Plant Relationship Specialty Start Date End Date Consuelo Arroyo MD [address] [place] [address] PCP - General 08/19/20
--- OUTSIDE RECORDS SUMMARY | 2024-11-24 18:07 | XMS_ITS | Encounter Summary ---
[facility] [address] [place] [address] Care Team Providers Care Administration Assistant Name Role Phone Consuelo Arroyo MD Primary Care Provider + Reason for Visit * Reason Onset Date Comments Med Management 10/15/2024 Encounter Details Date Type Department Care Team (Late st Contact Info) Description 10/15/2024 Telephone [facility] CARDIOLOGY [address] [facility] [address] [place] [address] Hima Gonzalez MD [address] [facility] [address] [place] [address] Med Management Social History Tobacco Use Types Packs/Day Years [...] encounter Miscellaneous Notes * Telephone Encounter - Shyanne Tinajero APRN - 10/15/2024 12:42 PM EDT Ok to hold Eliquis 72 hours prior (chronic CKD) * Telephone Encounter - Juany Dave RN - 10/15/2024 10:15 AM EDT Pt to Dr Arroyo's 10/14/24 for dizziness, spent the afternoon in [facility] ER .DX with atrial fibrillation , put on eliquis 5 mg BID, fluid in ears, placed on meclizine to f/u with ENT . [facility] updated note regarding recent ER visit. Pt to have Bronchoscopy with Dr Person , team I requesting 72 hour hold on Eliquis. Notes requested from PCP. Please advise . Last OV: 07/02/24 documented in this encounter Plan of Treatment Upcoming Encounters Date Type Department Care Team (Late st Contact Info) Description 01/25/2025 1:30 PM EDT Office Visit [facility] ENDOCRINOLOGY [address] [facility] [address] [place] [phone] Ahsan Alonso MD [address] [place] [address] 10/14/2025 1:30 PM EDT Office Visit [facility] CARDIOLOGY [address] [place] [address] Hima Gonzalez MD [address] [facility] [address] [address] [place] [address] documented as of this encounter Visit Diagnoses Not on filedocumented in this encounter Care Teams Administration Assistant Relationship Specialty Start Date End Date Consuelo Arroyo MD [address] [place] [id number] PCP - General Internal Medicine 02/13/18 documented as of this encounter
--- OUTSIDE RECORDS SUMMARY | 2024-11-24 18:07 | XMS_ITS | Encounter Summary ---
[facility] [address] [place] [address] Care Team Providers Care Carriage Rider Name Role Phone Consuelo Arroyo MD Primary Care Provider + Reason for Visit * Reason Comments Med Refill Encounter Details Date Type Department Care Team (Late st Contact Info) Description 10/01/[address] [facility] ENDOCRINOLOGY [address] [facility] [address] [place] [address] Ahsan Alonso MD [address] [facility] [address] [place] [id number] Social History Tobacco Use Types Packs/Day Years [...] Description 01/25/2025 1:30 PM EDT Office Visit [facility] ENDOCRINOLOGY [address] [facility] 50 [place] [phone] Ahsan Alonso MD [address] [facility] [address] [place], [place] [id number] 10/14/2025 1:30 PM EDT Office Visit [facility] CARDIOLOGY [address] [place] [address] [place] [address] Hima Gonzalez MD [address] [facility] [address] [place], [place] [id number] documented as of this encounter Visit Diagnoses Not on filedocumented in this encounter Care Teams Carriage Rider Relationship Specialty Start Date End Date Consuelo Arroyo MD [address] [place] [address] PCP - General Internal Medicine 02/13/18 documented as of this encounter
--- OUTSIDE RECORDS SUMMARY | 2024-11-24 18:08 | XMS_ITS ---
Author Organization [facility] Address [address] [place] [address] Care Team Providers Care Administrative And Program Specialist Name Role Phone Consuelo Arroyo MD Primary Care Provider + Asthma - External Fill Status:Enrolled (Active) Start date:09/29/2024 Enrollment date:09/29/2024 Enrollment reason:Identified as being on target medication Current support & services provided:Refill Coordination , Benefits Investigation, Prior Authorization, External Pharmacy Dispensing Linked medications:Mepolizumab (Active) Linked problems:Churg-Britni syndrome (Active), 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
--- OUTSIDE RECORDS SUMMARY | 2024-11-24 18:08 | XMS_ITS ---
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
--- OUTSIDE RECORDS SUMMARY | 2024-11-24 18:08 | XMS_ITS | Encounter Summary ---
Author Organization [facility] Address [address] [place] [address] Care Team Providers Care Computing Machine Operator Name Role Phone Consuelo Arroyo MD Primary Care Provider + Encounter Details Date Type Department Care Team (Late st Contact Info) Description 04/23/2013 Conversion Encounter [facility] CONV [address] [place] [address] Interface, See Report Social History Tobacco Use Types Packs/Day Years Used Date Smoking Tobacco: Never Assessed Comments Unknown Sex and Gender Information Value Date Recorded Sex Assigned at Not on file Legal Sex Female 10:51 AM EDT Gender Identity Not on file Sexual Orientation Not on file documented as of this encounter OR Notes * Op Note - Interface, See Report - 04/23/2013 7:33 AM EST [place] [address] PROCEDURE NOTE PATIENT NAME: DARRELL NINA [address] [facility] NO: [id number] DATE OF : 1945 DATE OF ADMISSION: 04/23/2013 DATE OF PROCEDURE: 04/23/2013 ADMITTING PHYSICIAN: Lucila Byers M.D. PROCEDURE: Bronchoscopy with conscious sedation and transbronchial biopsies. INDICATION: 67-year-old white female with persistent cough, sputum production, atypical CT scan and nodular infiltrate. DESCRIPTION OF PROCEDURE: Fully informed written consent was obtained from the patient who understood the risks and benefits of the procedure including the risk of pneumothorax and bleeding. In the endoscopy suite, the patient received conscious sedation. The bronchoscope was introduced via the right transnasal approach and advanced to the level the vocal cords. The vocal cords were unremarkable and moved normally. 4 cc of 1% lidocaine was given above the cords and below the cords. The trachea was inspected and found to be within normal limits. The scope was advanced into the right mainstem bronchus. 4 cc of 1% lidocaine was given x2. The right upper lobe, bronchus intermedius, right lower lobe, superior segment of the right lower lobe and right middle lobe revealed diffuse bronchitic changes, thick white to clear secretions, but no endobronchial lesions. There was mild diffuse mucosal edema and erythema. The scope was advanced into the left mainstem bronchus. 4 cc of 1% lidocaine was given x2. The left upper lobe, lingula, left lower lobe and superior segment of the left lower lobe again revealed diffuse bronchitic changes, mild diffuse mucosal edema and erythema but no discrete endobronchial lesions. The scope was wedged in the left upper lobe where a bronchoalveolar lavage specimen was obtained. Then a 7 mm cytology brushing specimen was obtained. Then multiple transbronchial biopsies were obtained from the lingula and the left upper lobe. There was minimal bleeding and no evidence of any active bleeding at the end of the procedure. The scope was withdrawn without difficulty. The patient tolerated the procedure well. There were no immediate complications. CONSCIOUS SEDATION: Conscious sedation was achieved with 3 mg of IV Versed and 100 mcg of IV fentanyl. The patient received topical and nebulized lidocaine. She was monitored throughout the procedure by a dedicated nursing staff. There were no immediate complications. FLUOROSCOPY: Fluoroscopy was performed under my direct supervision without a radiologist present for obtaining transbronchial biopsy and brushing specimens. Fluoroscopy was used at the end of the procedure to exclude a pneumothorax. None was identified. There were no immediate complications. Lucila Byers M.D.* JRT/rxcbp Voice Rec ID #[id number] Original Voice Rec ID #[id number] Doc ID #[id number] Rev. #0 cc: Lucila Byers M.D.* <START HEADER> [address] [address] PROCEDURE NOTE PATIENT NAME: DARRELL NINA 3 [facility] NO: [id number] DATE OF : 1945 <END FOOTER> DO NOT TEXT EDIT THIS LINE :[id number]: Authenticated by Lucila BYERS MD On 04/28/2013 06:45:42 AM documented in this encounter Plan of Treatment Upcoming Encounters Date Type Department Care Team (Late st Contact Info) Description 01/25/2025 1:30 PM EDT Office Visit [facility] ENDOCRINOLOGY [address] [facility] [address] [place] [phone] Ahsan Alonso MD [address] [facility] [address] [place], [place] [id number] 10/14/2025 1:30 PM EDT Office Visit [facility] CARDIOLOGY [address] [place] [address] Hima Gonzalez MD [address] [facility] [address] [place] [address] documented as of this encounter Procedures Procedure Name Priority Date/Time Associated Diagnosis Comments RESPIRATORY CULTURE Routine 04/23/2013 1 1:26 AM EST AFB CULTURE Routine 04/23/2013 11:26 AM EST CONV ISABEL INK Routine 04/23/2013 11:26 AM EST VIRUS CULTURE Routine 04/23/2013 11:26 AM EST FUNGAL CULTURE Routine 04/23/2013 11:26 AM EST FL C ARM DURING SURGERY Routine 04/23/2013 10:24 AM EST XR CHEST 1 VW Routine 04/23/2013 10:24 AM EST POCT GLUCOSE FINGERSTICK Routine 04/23/2013 9:54 AM EST POCT GLUCOSE FINGERSTICK Routine 04/23/2013 8:13 AM EST MISCELLANEOUS SMEAR CYTOLOGY Routine 04/23/2013 7:33 AM EST MISCELLANEOUS SMEAR CYTOLOGY Routine 04/23/2013 7:33 AM EST CONVERTED (HISTORICAL) SURGICAL PATHOLOGY Routine 04/23/2013 7:33 AM EST ENDOSCOPY, INT 04/23/2013 SCANNED PATHOLOGY 04/23/2013 documented in this encounter Results * AFB culture (04/23/2013 11:26 AM EST) Specimen from lung obtained by bronchial washing procedure (specimen) Structure of upper lobe of left lung / Unknown 04/23/2013 11:26 AM EST [facility] - 06/05/2013 7:14 AM EST Specimen Type: Bronchial Washing Specimen Source: Lung - Left Upper Lobe [facility] - Culture AFB w Smear Specimen: Bronchial Washing Collected: 04/23/2013 11:26 Status: FINAL Last Updated: 06/05/2013 07:14 AFB Smear (AFBS) (Final) No Acid Fast Bacilli Seen On Concentrated Smear AFB Culture Result (CRAFB) (Final) No AFB isolated at 6 weeks Wayne Byers MD MICROBIOLOGY - GENERAL ORDERABLES Final Result [facility] [place] [address], * Isabel Ink (04/23/2013 11:26 AM EST) Specimen from lung obtained by bronchial washing procedure (specimen) Structure of upper lobe of left lung / Unknown 04/23/2013 11:26 AM EST [facility] - 04/25/2013 1:37 PM EST Specimen Type: Bronchial Washing Specimen Source: Lung - Left Upper Lobe [facility] Laboratory - Fungal GMS Smear Specimen: Bronchial Washing Collected: 04/23/2013 11:26 Status: FINAL Last Updated: 04/25/2013 13:37 GMS Stain (GMS) (Final) No Pneumocystis Seen (GMS) No Fungal Elements Seen Wayne Byers MD MICROBIOLOGY - GENERAL ORDERABLES Final Result Performing Organization Address [facility] [place] [address], * Fungal culture (04/23/2013 11:26 AM EST) Specimen from lung obtained by bronchial washing procedure (specimen) Structure of upper lobe of left lung / Unknown 04/23/2013 11:26 AM EST Narrative [facility] - 06/03/2013 1:46 PM EST Specimen Type: Bronchial Washing Specimen Source: Lung - Left Upper Lobe [facility] - Culture Fungus Specimen: Bronchial Washing Collected: 04/23/2013 11:26 Status: FINAL Last Updated: 06/03/2013 13:46 Isolate (ISO1) (Final) Alicia albicans (ISO1) Rare Growth Wayne Byers MD MICROBIOLOGY - GENERAL ORDERABLES Final Result Performing Organization Address [facility] de Phone Number [facility] [address] [place] [address], * Respiratory culture (04/23/2013 11:26 AM EST) Specimen from lung obtained by bronchial washing procedure (specimen) Structure of upper lobe of left lung / Unknown 04/23/2013 11:26 AM EST Narrative [facility] - 04/25/2013 7:22 AM EST Specimen Type: Bronchial Washing Specimen Source: Lung - Left Upper Lobe [facility] - Culture RESPIRATORY with Gram Stain Specimen: Bronchial Washing Collected: 04/23/2013 11:26 Status: FINAL Last Updated: 04/25/2013 07:22 Gram Stain (GRAM) (Final) No Organisms Seen (GRAM) Rare WBC's (GRAM) Rare Epithelial Cells Culture Result (CR) (Final) Rare Growth (CR) Usual Respiratory Corazon Wayne Byers MD MICROBIOLOGY - GENERAL ORDERABLES Final Result Performing Organization Address City/[facility] Co de Phone Number [facility] [address] [place] [address], [place] [phone] * Virus culture (04/23/2013 11:26 AM EST) Viral Culture, General No virus isolated. [facility] Other 04/23/2013 11:2 6 AM EST Narrative [facility] - 05/01/2013 10:17 AM EST Specimen Type: Respiratory Specimen Source: BRONCH WASH PERFORMED AT: [facility] [id number] HOTEL MAINTENANCE TECHNICIAN: Iron Damon MD PHONE: [phone] Wayne Byers MD MICROBIOLOGY - GENERAL ORDERABLES Final Result Performing Organization Address [facility] Co de Phone Number [facility] [address] [place] [address], [place] [phone] * XR chest 1 vw (04/23/2013 10:24 AM EST) Anatomical Region Laterality Modality Body N/A Radiographic Alaina ging 04/23/2013 10:2 4 AM EST Narrative 04/23/2013 11:45 AM EST AP PORTABLE ERECT CHEST 04/23/2013 AT 1028 HOURS INDICATION: Post bronch FINDINGS: A patchy airspace opacity has developed in the left upper lobe consistent with a pneumonic process. There is no pneumothorax or effusion. The osseous structures are normal. DE: 04/23/2013 Arboriculture Teacher- TABBY Rankin Radiologist- KADE JENKINS Releasing Radiologist- KADE JENKINS Released Date Time- 04/23/13 1551 Procedure Note Kade Lopez MD - 12/28/2014 AP PORTABLE ERECT CHEST 04/23/2013 AT 1028 HOURS INDICATION: Post bronch FINDINGS: A patchy airspace opacity has developed in the left upper lobe consistent with a pneumonic process. There is no pneumothorax or effusion. The osseous structures are normal. DE: 04/23/2013 Arboriculture Teacher- TABBY Rankin RadiologistOpal JENKINS Releasing Rosina JENKINS Released Date Time- 04/23/13 155 Wayne Byers MD IMG DIAGNOSTIC IMAGING ORDERABLES Final Result * FL C ARM DURING SURGERY (04/23/2013 10:24 AM EST) Anatomical Region Laterality Modality Body, Other N/A Radiographic Alaina ging 04/23/2013 10:2 4 AM EST Narrative 04/23/2013 11:47 AM EST FLUOROSCOPY FOR SURGERY DATE OF EXAM: 04/23/2013. INDICATION: Left upper lobe bronchoscopy. TECHNIQUE: A total of 1 minute and 36 seconds of low-dose fluoroscopy time was utilized. No fluoroscopic spot images were saved. E: 04/23/2013 Arboriculture Teacher- EN JENKINS Releasing Rosina JENKINS Released Date Time- 04/23/13 155 Procedure Note Kade Lopez MD - 12/28/2014 FLUOROSCOPY FOR SURGERY DATE OF EXAM: 04/23/2013. INDICATION: Left upper lobe bronchoscopy. TECHNIQUE: A total of 1 minute and 36 seconds of low-dose fluoroscopy time was utilized. No fluoroscopic spot images were saved. E: 04/23/2013 Arboriculture Teacher- EN FOURNIER Reading Radiologist- KADE JENKINS Releasing Radiologist- KADE JENKINS Released Date Time- 04/23/13 1551 Wayne Byers MD IMG FLUOROSCOPY ORDERAB LES Final Result * POCT Glucose Fingerstick (04/23/2013 9:54 AM EST) Glucose 106 75 - 125 mg/dL [facility] Blood specimen (specimen) 04/23/2013 9:54 AM EST Narrative [facility] - 04/23/2013 9:59 AM EST Specimen Type: Blood us Historical Provider POINT OF CARE TEST ORDERA BLES Final Result Performing Organization Address City/[facility]/ZIP Co de Phone Number [facility] [address] [place] [address], * POCT Glucose Fingerstick (04/23/2013 8:13 AM EST) Glucose 95 75 - 125 mg/dL [facility] Blood specimen (specimen) 04/23/2013 8:13 AM EST Narrative [facility] - 04/23/2013 8:17 AM EST Specimen Type: Blood us Historical Provider POINT OF CARE TEST ORDERA BLES Final Result Performing Organization Address [facility] Co de Phone Number [facility] [address] [place] [address], * Converted (Historical) Cytology (04/23/2013 7:33 AM EST) 04/23/2013 7:33 AM EST Narrative [facility] - 04/24/2013 3:00 [place] [address] CYTOLOGY REPORT Patient Name: DARRELL NINA MR#: [id number] : 1945 Gender: F Ordering Physician: LEBRON BYERS Copy To: Location: 101-06 Collected: 04/23/2013 Received: 04/23/2013 Reported: 04/24/2013 Clinical Diagnosis and History Final Diagnosis BRONCH BRUSH LEFT UPPER LOBE (2 OF 2): Negative for malignant cells. COMMENT: Numerous benign bronchial epithelial cells are present. (RLL/rw) [facility] Accession No.: [id number] Testing Performed at [facility] [address] [place] [address] Slides reviewed and diagnosis rendered by Dr. Jass Parks /fabrizio Amendments: Electronically Signed Out By Milka Mcnamara Specimen(s) Received: Bronchial Brushing Procedures/Addenda us See Report Interface PATHOLOGY/CYTOLOGY ORDERABL ES Final Result [facility] [address] [place] [address], * Converted (Historical) Cytology (04/23/2013 7:33 AM EST) 04/23/2013 7:33 AM EST [facility] - 04/24/2013 2:58 [place] [address] CYTOLOGY REPORT Patient Name: DARRELL NINA MR#: [id number] : 1945 Gender: F Ordering Physician: LEBRON BYERS Copy To: Location: 101-06 Collected: 04/23/2013 Received: 04/23/2013 Reported: 04/24/2013 Clinical Diagnosis and History Final Diagnosis BRONCH WASH LEFT UPPER LOBE (1 OF 2): Negative for malignant cells. COMMENT: Many histiocytes and few bronchial cells are present. (RLL/rw) [facility] Accession No.: [id number] Testing Performed at [facility] [address] [place] [id number] Slides reviewed and diagnosis rendered by Dr. Jass aPrks /rw Amendments: Electronically Signed Out By Milka Mcnamara Specimen(s) Received: Bronchial Washing Procedures/Addenda us See Report Interface PATHOLOGY/CYTOLOGY ORDERABL ES Final Result [facility] [address] [place] [address], * Converted Surgical Pathology (04/23/2013 7:33 AM EST) 04/23/2013 7:33 AM EST Narrative [facility] - 04/24/2013 11:52 [place] [address] SURGICAL PATHOLOGY REPORT Patient Name: DARRELL NINA MR#: [id number] : 1945 Gender: F Ordering Physician: LEBRON BYERS Copy To: Location: [address] [place] [address] Collected: 04/23/2013 Received: 04/23/2013 Reported: 04/24/2013 Clinical Diagnosis and History The working history is pulmonary nodule; rule out MAC. Final Diagnosis LEFT LOWER LOBE, LINGULA BIOPSY: Peribronchial chronic inflammation with accentuated eosinophil infiltrate, no tumor or granulomatous inflammation identified. JB/rw Amendments: Electronically Signed Out By BRANDO AGUIRRE Specimen(s) Received: Lung, bronchial biopsy Gross Description Received in formalin labeled left upper lobe biopsy/lingular biopsy are multiple ambrose soft tissue fragments aggregating 1.0 x 1.0 x 0.2cm, wrapped, submitted in toto in one cassette. HBM/rw Microscopic Description Sections of the peribronchial tissue and alveolated elements show there to be no atypia of the surface pseudostratified ciliated columnar epithelium. In the submucosa there is an extensive lymphocytic inflammatory infiltrate that is punctuated by numerous eosinophils. No tumor or granulomatous inflammation is seen. The alveolated elements show no alveolar wall thickening or pneumonitis. DGD/rw Procedures/Addenda us See Report Interface PATHOLOGY/CYTOLOGY ORDERABL ES Final Result [facility] [address] [place] [address], * ENDOSCOPY, INT (04/23/2013) us [facility] INTERFACE NEEDS Final Result * SCANNED PATHOLOGY (04/23/2013) [facility] PATHOLOGY/CYTOLOGY ORDERABLES Final Result documented in this encounter Visit Diagnoses Not on filedocumented in this encounter Additional Health Concerns Infection Onset Date Last Indicated Resolved Time COVID (rule out) 03/08/2020 03/09/2020 03/15/2020 9:10 PM EST COVID (rule out) 03/10/2021 03/13/2021 03/17/2021 9:08 PM EST documented as of this encounter Care Teams Computing Machine Operator Relationship Specialty Start Date End Date Consuelo Arroyo MD [address] [place] [address] PCP - General Internal Medicine 02/13/18 documented as of this encounter
--- OUTSIDE RECORDS SUMMARY | 2024-11-24 18:08 | XMS_ITS | Encounter Summary ---
[facility] Organization [facility] Address [address] [place] [address] Care Team Providers Care Marine Pipefitter Helper Name Role Phone Consuelo Arroyo MD Primary Care Provider + Reason for Visit * Reason Onset Date Comments Med Refill 05/20/2023 Encounter Details Date Type Department Care Team (Late st Contact Info) Description 05/20/2023 Refill [facility] [address] [facility] [address] [place] [address] Ahsan Alonso MD [address] [facility] [address] [place] [phone] Social History Tobacco Use Types Packs/Day Years [...] encounter Miscellaneous Notes * Telephone Encounter - Genny Macario RegSched Rep - 05/20/2023 2:56 PM EST Caller: MARYANNE NINA Relationship: SELF Best call back number: [phone] Requested Prescriptions: Requested Prescriptions Pending Prescriptions Disp Refills Insulin Glargine (Lantus SoloStar) 100 UNIT/ML injection pen 15 mL 2 Sig: ADMINISTER 17 UNITS UNDER THE SKIN DAILY Pharmacy where request should be sent: [id number] [place] [address] [phone] [facility] [phone] FX Last office visit with prescribing clinician: 02/25/2023 Last telemedicine visit with prescribing clinician: Visit date not found Next office visit with prescribing clinician: 08/07/2023 Additional details provided by patient: Does the patient have less than a 3 day supply: [x] Yes [] No Would you like a call back once the refill request has been completed: [x] Yes [] No If the office needs to give you a call back, can they leave a voicemail: [x] Yes [] No Lilian Kidd Rep 05/20/23 14:57 EST documented in this encounter Plan of Treatment Upcoming Encounters Date Type Department Care Team (Late st Contact Info) Description 01/25/2025 1:30 PM EDT Office Visit [facility] ENDOCRINOLOGY [address] [facility] [address] [place] [phone] Ahsan Alonso MD [address] [facility] [address] [place] [address] 10/14/2025 1:30 PM EDT Office Visit [facility] CARDIOLOGY [address] [place] [address] [place] [address] Hima Gonzalez MD [address] [facility] [address] [place] [address] documented as of this encounter Visit Diagnoses Not on filedocumented in this encounter Care Teams Marine Pipefitter Helper Relationship Specialty Start Date End Date Consuelo Arroyo MD [address] [place] [address] PCP - General Internal Medicine 02/13/18 documented as of this encounter
--- OUTSIDE RECORDS SUMMARY | 2024-11-24 18:08 | XMS_ITS | Encounter Summary ---
[facility] Organization [facility] Address [address] [place] [address] Care Team Providers Care Director Religious Education Name Role Phone Consuelo Arroyo MD Primary Care Provider + Reason for Visit * Reason Onset Date Comments Bronchoscopy 11/09/2024 Encounter Details Date Type Department Care Team (Late st Contact Info) Description 11/09/2024 Telephone [facility] PULMONARY & CRITICAL CARE MEDICINE [address] [place] [address] Lynda Durham, [employer] AND [employer] SUPERVISOR [address] [place] [address] Bronchoscopy Social History Tobacco Use Types Packs/Day Years [...] or training? Not on file Preferred Language Omani 11/04/2024 PHQ-2 Answer Date Recorded Retired PHQ-9: Brief Depression Severity Measure Score 0 02/19/2023 Comments No Sex and Gender Information Value Date Recorded Sex Assigned at Not on file Legal Sex Female 10:51 AM EDT Gender Identity Not on file Sexual Orientation Not on file documented as of this encounter Miscellaneous Notes * Telephone Encounter - Lynda Durham APRN - 11/10/2024 9:23 AM EDT I returned Ms Nina call and could not leave a message. I will try again later. * Telephone Encounter - Yazmin Carrera MA - 11/09/2024 9:20 AM EDT Pt is scheduled for Bronchoscopy w/ Dr Person on 11/11/24 and is experiencing swelling in her legs and ankles since Saturday. Pt denies chest pain/sob/cough/wheezing/nausea. Pt is wanting to know if she will still be able to proceed with her procedure? Pt does have Rx Lasix but worried to take this. documented in this encounter Plan of Treatment Upcoming Encounters Date Type Department Care Team (Late st Contact Info) Description 01/25/2025 1:30 PM EDT Office Visit [facility] ENDOCRINOLOGY [address] [place] [address] Ahsan Alonso MD [address] [facility] [address] [place] [address] 10/14/2025 1:30 PM EDT Office Visit [facility] CARDIOLOGY [address] [place] [address] [place] [address] Hima Gonzalez MD [address] [facility] [address] [place] [address] documented as of this encounter Visit Diagnoses Not on filedocumented in this encounter Care Teams Director Religious Education Relationship Specialty Start Date End Date Consuelo Arroyo MD [address] [place] [address] PCP - General Internal Medicine 02/13/18 documented as of this encounter
--- OUTSIDE RECORDS SUMMARY | 2024-11-24 18:09 | XMS_ITS | Clinical Summary ---
Author Organization [facility] Address [address] [place] [address] Care Team Providers Care Systems Accountant Name Role Phone Consuelo Arroyo MD Primary Care Provider + Allergies Active Allergy Reactions Criticality Noted Date Comments Sulfamethoxazole-Trimethop rim Other (See Comments) High 02/12/2017 Pancytopenia Medications albuterol (PROVENTIL) (2.5 MG/3ML) 0.083% nebulizer solution Take 2.5 mg by nebulization Every 4 (Four) Hours As Needed for Wheezing or Shortness of Air. 06/03/19 18 Active omeprazole (priLOSEC) 40 MG capsule Take 1 capsule by mouth Daily. 08/01/19 18 Active escitalopram (LEXAPRO) 20 MG tablet TAKE 1 TABLET BY MOUTH EVERY DAY 90 tablet 3 02/23/20 21 Active Additional Information Patient taking differently: 20 mg Oral Daily, Informant: Self, Reported on 11/11/2024 Cholecalciferol (Vitamin D3) 50 MCG (1999 UT) tablet Take 1 tablet by mouth Daily. 08/04/19 23 Active vitamin B-12 (CYANOCOBALAMIN) 1000 MCG tablet Take 1 tablet by mouth Daily. 08/04/19 23 Active Magnesium Oxide 400 (240 Mg) MG tablet Take 1 tablet by mouth Daily. 08/04/19 23 Active aspirin 81 MG chewable tablet Chew 1 tablet Daily. Active Insulin Pen Needle 32G X 6 MM miscIndications:U ncontrolled type 2 diabetes mellitus with hyperglycemia Use 1 each 4 (Four) Times a Day. 100 each 5 05/14/19 25 Active BD Pen Needle Jeanette 2nd Gen 32G X 4 MM misc USE FOUR TIMES DAILY 400 each 3 06/19/19 25 Active lisinopril (PRINIVIL,ZESTRIL ) 10 MG tabletIndications :Localized edema,Type 2 diabetes mellitus with complication, with long-term current use of insulin,IgG1 subclass deficiency Take 1 tablet by mouth Daily. 90 tablet 3 07/03/19 25 Active nebivolol (BYSTOLIC) 10 MG tablet Take 1 tablet by mouth Daily. 90 tablet 3 07/03/19 25 Active Budeson-Glycopyrr ol-Formoterol (BREZTRI) 160-9-4.8 MCG/ACT aerosol inhaler Inhale 2 puffs 2 (Two) Times a Day. 1 each 07/24/19 25 Active insulin aspart (NovoLOG FlexPen) 100 UNIT/ML solution pen-injector sc penIndications:Un controlled type 2 diabetes mellitus with hyperglycemia 7 units tid with meals 27 mL 1 09/02/19 25 Active Additional Information Patient taking differently: 18 Units Subcutaneous 3 Times Daily With Meals, (No instructions reported), Informant: Self, Reported on 11/04/2024 Insulin Glargine (Lantus SoloStar) 100 UNIT/ML injection pen ADMINISTER 15 UNITS UNDER THE SKIN DAILY 15 mL 2 09/02/19 Active Additional Information Patient taking differently: 18 Units Subcutaneous Daily, (No instructions reported), Informant: Self, Reported on 11/04/2024 rosuvastatin (CRESTOR) 20 MG tabletIndications :Dyslipidemia Take 1 tablet by mouth Daily. Please obtain annual lipid panel 30 tablet 3 10/09/19 25 Active mepolizumab (Nucala) 100 MG reconstituted solution injectionIndicati ons:Moderate persistent asthma without complication Inject 100 mg under the skin into the appropriate area as directed Every 28 (Twenty-Eight) Days. 1 each 10/28/19 25 Active apixaban (ELIQUIS) 5 MG tablet tablet Take 1 tablet by mouth 2 (Two) Times a Day. Patient instructed to hold 3 days prior to bronch Active ferrous sulfate 325 (65 FE) MG tablet Take 1 tablet by mouth Daily With Breakfast. Active Hydrocod Sathish-Chlorphe Sathish ER (TUSSIONEX PENNKINETIC) 10-8 MG/5ML ER suspension Take 5 mL by mouth Every 12 (Twelve) Hours As Needed. 05/21/19 25 025 Discontin ued(*Ther apy completed ) amoxicillin-clavu lanate (AUGMENTIN) 875-125 MG per tablet Take 1 tablet by mouth 2 (Two) Times a Day. 28 tablet 07/24/19 25 025 Discontin ued(*Ther apy completed ) mepolizumab (Nucala) 100 MG reconstituted solution injectionIndicati ons:Moderate persistent asthma without complication Inject 100 mg under the skin into the appropriate area as directed Every 28 (Twenty-Eight) Days. 1 each 09/30/19 25 025 Discontin ued(Reord er) mepolizumab (Nucala) 100 MG reconstituted solution injectionIndicati ons:Moderate persistent asthma without complication Inject 100 mg under the skin into the appropriate area as directed Every 28 (Twenty-Eight) Days. 1 each 09/02/19 25 025 Discontin ued(Reord er) Active Problems Problem Noted Date Diagnosed Date Right upper lobe pulmonary nodule 10/06/2024 History of stroke 10/25/2022 CLL (chronic lymphocytic leukemia) 10/19/2022 Left cerebellar stroke 10/19/2022 Assessment & Plan (10/19/2022 12:45 PM EDT): The reported tiny infarct would not explain the patient's generalized weakness. Unfortunately, I was unable to view the images independently. The patient did bring a CD in but it was not compatible with our software so the CD was brought to radiology for upload. No images available at the time this note was signed. However, a tiny cerebellar infarct can contribute to her dizziness. She has additional subtle exam findings of left hand incoordination and mild dysmetria. She has a positive Romberg. She was referred to Occupational Therapy for balance therapy to help improve left hand incoordination. She does balance exercises at her gym 4 times a week which should help with dizziness. Physical therapy declined at this time. The etiology of this patient's stroke is unclear. We will order further work-up with TTE and CTA head and neck to rule out dissection in the setting of a fall 1.5 years ago. We will follow-up in 4 months. -Transthoracic echocardiogram ordered -The patient will confirm that she had a recent LDL -Physical therapy and Occupational Therapy were offered for balance therapy to help improve dizziness -No carotid imaging needed since this is a posterior circulation infarct, however the patient prefers to get a CT angiogram of the head and neck to rule out dissection as a cause of her infarct since she did have a fall 1.5 years ago. Discussed that dissections would typically heal within that time frame and she is on the appropriate treatment with aspirin already, however will order the scan per patient preference. -Start aspirin 81 mg daily -Continue rosuvastatin 20 mg daily for stroke prevention -MRI not needed since this will not chemical cell changer as above -Follow up with a primary care physician for blood pressure screening and diabetes management. -The patient was counseled she experiences symptoms of acute onset arm or leg weakness/ numbness, facial droop, slurred speech/ word finding difficulty, visual disturbance or severe headache she should call 911 and present to the nearest emergency department immediately Uncontrolled type 2 diabetes mellitus with hyper glycemia 08/24/2020 Assessment & Plan (08/12/2024 4:29 PM EDT): Assess: improved. Still unstable with hypoglycemia post breakfast and scattered hyperglycemia but A1c down to 7.8 Plan : reduce novolog with breakfast Assessment & Plan (07/24/2024 2:53 PM EDT): Still unstable and poorly controlled Patient to decrease lantus to 18 units to prevent fasting lows, increase basal insulin to 20 units three times a day before she eats Continue cgm Continue hydrating with water and walking to decrease blood glucose CALL office if any low blood glucose readings. Assessment & Plan (06/18/2024 2:55 PM EDT): Blood glucose slightly better, according to patient she is normally in high 100- 200 range in the morning, she has only been low (76) after fasting acting insulin given in the morning before she ate lunch. In afternoons, she has been 200-400 range Patient given verbal and written instructions, friend was also here for appointment and taking notes Increase Lantus to 20 units every morning and NovoLog to 7 units with breakfast, 10 units with lunch and supper Geovani kit explained to patient and for sensor applied during her office visit Assessment & Plan (05/18/2024 12:29 PM EST): Worse. Bg readings very unstable She has had DKA so we have to treat her as insulin dependent. Will make sure she is not taking any oral agents and just using insulin. I explained why she needs both insulin and how to take them Will have her take lantus- 15 units qam and log 7 at meals and call Saturday with readings. She will then check in weekly with readings. We will try to order her a sensor as well Assessment & Plan (05/14/2024 10:52 AM EST): Better but still not well controlled Case discussed with dr. Alonso and patient was asked to stop taking januvia and metformin completely, as they are not working and she had DKA Continue lantus 10 units a day and increase to 12 units if fasting blood glucose greater than 100 every morning Patient to start taking 5 units of novolog before meals. She was advised to take novolog as soon as she gets home (she doesn't have insulin with her) 5 units for blood glucose greater than 200 Increase water intake now to prevent dehydration Friend took notes during her appointment and will help remind her to take her insulin Patient warned not to drive if blood glucose less than 100 or greater than 350 Assessment & Plan (11/15/2023 2:50 PM EDT): Worse The plan is to try to get her on a vgo 20. Assessment & Plan (02/25/2023 10:33 AM EST): A1c deteriorated- up to almost 14. She is missing her insulin doses and needs to stop missing her doses Assessment & Plan (08/23/2022 11:24 AM EDT): Stable. a1c of 8.7 Is pretty good for her. If we can keep the average at about 200 , that's pretty good Assessment & Plan (02/22/2022 11:43 AM EST): Diabetes is improving with treatment. Continue current treatment regimen. Diabetes will be reassessed in 6 months. Assessment & Plan (08/23/2021 11:38 AM EDT): Diabetes is worsening. due to all the steroids. i don't have a great solution to the hyperglycemia excepot for her to take extra insulin when she gets steroids Diabetes will be reassessed in 6 months. Assessment & Plan (02/22/2021 11:17 AM EST): Diabetes control is worse. Needs to be more consistent with her novolog. She needs to take her steroids to breathe so will need her novolog . Assessment & Plan (08/24/2020 11:33 AM EDT): Deteriorated due to steroids She will take 10 units of novolog 3 times per day for 5 days when she gets a steroid shot and 10 units 3 times per day while she is on prednisone . 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 History of partial thyroidectomy, now on replacement therapy. Assessment & Plan (08/23/2022 11:25 AM EDT): tsh was low last time and we reduced the dose . 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 No changes needed Pulmonary collapse 09/06/2015 8 Overview (09/06/2015): Description: A. Atelectasis of the medial segment of the right middle lobe and noted on CT scan of the chest 03/03/2013, this has progressed from prior study of 01/27/2013. Encounters Date Type Department Care Team Description 11/20/2024 10:37 AM EDT - 11/20/2024 11:59 PM EDT Hospital Encounter [address] [place] [address] Arrived Discharge Disposition: Home or Self Care 11/20/2024 10:37 AM EDT - 11/20/2024 11:59 PM EDT Hospital Encounter [address] [place] [address] Primary lung cancer, right; Malignant neoplasm of upper lobe, right bronchus or lung Discharge Disposition: Home or Self Care 11/20/2024 Travel 11/11/2024 7:42 AM EDT Anesthesia Event [facility] [address] [place] [address] Ed Dale MD 11/11/2024 7:30 AM EDT - 11/11/2024 8:54 AM EDT Surgery [facility] [address] [place] [address] Wayne Person MD BRONCHOSCOPY NAVIGATION WITH ENDOBRONCHIAL ULTRASOUND AND ION ROBOT [[id number] (CPT )] 11/11/2024 6:30 AM EDT - 11/11/2024 10:12 AM EDT Hospital Encounter [facility] [address] [place] [address] Wayne Person MD Wells, Jeremy B., MD Right upper lobe pulmonary nodule Discharge Disposition: Home or Self Care 11/11/2024 Travel 11/09/2024 Telephone [facility] PULMONARY & CRITICAL CARE MEDICINE [address] [place] [address] Lynda Durham, SPECIAL EDUCATION PARA PROFESSIONAL Bronchoscopy 11/06/2024 Telephone [facility] ENDOCRINOLOGY [address] [facility] [address] [place] [address] Ahsan Alonso MD 11/04/2024 12:30 PM EDT Pre-Admission Testing [facility] PREADMISSION T [address] [place] [address] Right upper lobe pulmonary nodule 11/04/2024 11:18 AM EDT - 11/04/2024 11:59 PM EDT Hospital Encounter [facility] CT AT [address] [place] [address] Right upper lobe pulmonary nodule Discharge Disposition: Home or Self Care 11/04/2024 Telephone [facility] ENDOCRINOLOGY [address] [place] [address] Ahsan Alonso MD 11/04/2024 Travel 11/02/2024 4:10 PM EDT Ancillary Procedure [facility] [address] [facility] [address] [place] [address] Permanent atrial fibrillation 11/02/2024 Travel 10/27/2024 Telephone [facility] PULMONARY & CRITICAL CARE MEDICINE [address] [place] [address] Jessica Resendez, PharmD 10/23/2024 Telephone [facility] CARDIOLOGY [address] [facility] [address] [place] [address]CRAGER- MEDICAL CONCERN 10/15/2024 Telephone [facility] CARDIOLOGY [address] [facility] [address] [place] [address] Hima Gonzalez MD Med Management 10/06/2024 Travel 10/06/2024 Prep for Surgery [facility] ORDERS ONLY [address] [place] [address] Wayne Person MD Right upper lobe pulmonary nodule (Primary Dx) 10/05/2024 Refill [facility] CARDIOLOG[facility] [address] [facility] [address] [place] [address] Shyanne Tinajero, SPECIAL EDUCATION PARA PROFESSIONAL Med Refill 10/05/2024 Telephone [facility] PULMONARY & CRITICAL CARE MEDICINE [address] [facility] [place] [address] Lynda Durham, SPECIAL EDUCATION PARA PROFESSIONAL Results 10/02/2024 Telephone [facility] PULMONARY & CRITICAL CARE MEDICINE [address] [facility] [place] [address] Lynda Durham, SPECIAL EDUCATION PARA PROFESSIONAL 10/01/2024 Refill [facility] ENDOCRINOLOGY [address] [facility] [address] [place] [address] Ahsan Alonso MD 09/29/2024 Telephone [facility] PULMONARY & CRITICAL CARE MEDICINE [address] [place] [address] Jessica Resendez, PharmD 09/10/2024 9:40 AM EDT Lab [facility] DIAGNOSTIC CENTER AT [address] [place] [address] Churg-Britni syndrome 09/10/2024 Travel 09/09/2024 Telephone [facility] PULMONARY [facility] CRITICAL CARE MEDICINE [address] [facility] [place] [address] Lynda Durham, SPECIAL EDUCATION PARA PROFESSIONAL 09/07/2024 Telephone [facility] PULMONARY [facility] CRITICAL CARE MEDICINE [address] [facility] [place] [address] Lynda Durham, SPECIAL EDUCATION PARA PROFESSIONAL Results 09/01/2024 Telephone [facility] PULMONARY [facility] CRITICAL CARE MEDICINE [address] [facility] [place] [address] Lynda Durham, SPECIAL EDUCATION PARA PROFESSIONAL 09/01/2024 Refill [facility] ENDOCRINOLOGY [address] [place] [address] Ahsan Alonso MD Uncontrolled type 2 diabetes mellitus with hyperglycemia 09/01/2024 Refill [facility] ENDOCRINOLOG[facility] [address] [place] [address] Arely Whatley PA 09/01/2024 Refill [facility] ENDOCRINOLOG[facility] [address] [place] [address] Ahsan Alonso MD Uncontrolled type 2 diabetes mellitus with hyperglycemia 08/27/2024 11:00 AM EDT - 08/27/2024 11:59 PM EDT Hospital Encounter [facility] AT [address] [place] [address] Lynda Durham, SPECIAL EDUCATION PARA PROFESSIONAL Right upper lobe pulmonary nodule Discharge Disposition: Home or Self Care 08/27/2024 Travel from Last 3 Months Immunizations Immunization Administration Dates Next Due Arexvy (RSV, Adults 60+ yrs) 01/16/2024 COVID-19 (MODERNA) 1st,2nd,3 rd Dose Monovalent 07/13/2021,01/05/2021,06/30/2020,2020 Flu Vaccine Quad PF >36MO 12/31/2020,01/02/2019 Fluzone >6mos 01/07/2012 Fluzone High-Dose 65+YRS 01/10/2024 Influenza, Unspecified 12/30/2017 Pneumococcal Conjugate 20-Va lent (PCV20) 01/16/2024 Family History Medical History Relation Name Comments Brain cancer Brother 1 Jass Cancer Brother 1 Jass brain,throat,st omach cancer Hypertension Brother 1 Jass Stomach cancer Brother 1 Jass Throat cancer Brother 1 Jass Allergies Brother 2 Tal Asthma Brother 2 Tal Allergies Father COPD Father Cancer Father Emphysema Father Cancer Maternal Aunt colon Cancer Mother Dementia Mother Heart disease Mother pacemaker put in Allergies Sister 1 Kamila Asthma Sister 1 Kamila Diabetes Sister 1 Kamila Heart disease Sister 1 Kamila pacemanker Relation Name Status Comments Brother 1 Jass (Age 50s) Brother 2 Tal Alive Father (Age 62) Maternal Aunt Mother Sister 1 Kamila Sister 2 Sharron Social History Tobacco Use Types Packs/Day Years Used Date Smoking Tobacco: Former Cigarettes 1 3 0 10/03/1999 - 10/02/2002 Passive Smoke Exposure: Past Smokeless Tobacco: Never Tobacco Cessation:Counseling Given: Not Answered Alcohol Use Standard Drinks/Week Comments No 0 [...] or training? Not on file Preferred Language Irish 11/04/2024 PHQ-2 Answer Date Recorded Retired PHQ-9: [...] EDT Inhaled Oxygen Concentration - - Weight 82.6 kg (181 lb 15.8 oz) 025 12:34 PM EDT Height 162.6 cm (5' 4 ) 11/04/2024 12:3 4 PM EDT Body Mass Index 31.24 11/04/2024 12:34 PM EDT Plan of Treatment Upcoming Encounters Date Type Department Care Team (Late st Contact Info) Description 01/25/2025 1:30 PM EDT Office Visit [facility] ENDOCRINOLOGY [address] [facility] [address] [place] [address] Ahsan Alonso MD [address] [facility] [address] [place], [place] [id number] 10/14/2025 1:30 PM EDT Office Visit [facility] CARDIOLOGY [address] [place] [address] [place] [address] Hima Gonzalez MD [address] [facility] [address] [place] [address] Health Maintenance Due Date Last Done Comments DXA SCAN 1945 TDAP/TD VACCINES (1 - Tdap) 08/19/1966 COLOGUARD 08/19/1992 COLON CANCER SCREENING 5 YEA R SIGMOIDOSCOPY 08/19/1992 CT COLONOGRAPHY 08/19/1992 FECAL OCCULT BLOOD TEST 08/19/1992 FIT Testing (1 year) 08/19/1992 Hepatitis B (1 of 3 - Risk 3 -dose series) 2007 ANNUAL WELLNESS VISIT 07/19/2016 HEPATITIS C SCREENING 07/19/2016 DIABETIC EYE EXAM 06/14/2022 06/14/2021 (Adonay wright-Reported (Performed Externally)) LIPID PANEL 01/01/2023 01/01/2022 URINE MICROALBUMIN-CREATININ E RATIO (uACR) 07/19/2023 07/18/2022, 08/24/2020 DIABETIC FOOT EXAM 02/26/2024 02/25/2023, 1 04/27/2022, 02/22/2022, Additional history exists COVID-19 Vaccine (6 - Modern a risk season) 2024 01/10/2024, 07/13/2021, 01/05/2021, Additional history exists ZOSTER VACCINE (2 of 2) 11/04/2024 09/09/2024 INFLUENZA VACCINE 01/06/2025 01/10/2024, , 01/02/2019, Additional history exists HEMOGLOBIN A1C 02/12/2025 08/12/2024, 02/0 09/2024, 11/15/2023, Additional history exists COLONOSCOPY 09/19/2032 09/19/2022 COLORECTAL CANCER SCREENING 09/19/2032 Pneumococcal Vaccine 50+ Completed 01/16/2024 RSV Vaccine - Adults Completed 01/16/2024 Procedures Procedure Name Priority Date/Time Associated Diagnosis Comments POCT GLUCOSE FINGERSTICK Routine 11/20/2024 10:44 AM EDT XR CHEST 1 VW STAT 11/11/2024 8:53 [...] AM EDT Right upper lobe pulmonary nodule NON-TAX [facility]OR[facility]Y, [facility] ([facility], [facility], [facility], [facility]) Routine 11/11/2024 8:04 AM EDT Right upper lobe pulmonary nodule ANESTHESIA INTUBATION Routine 11/11/2024 7:51 AM EDT KS BRONCHOSCOPY W/CPTR-ASST IMAGE-GUIDED NAVIGATION 11/11/2024 7:42 AM EDT Right upper lobe pulmonary nodule BRONCHOSCOPY 11/11/2024 7:32 AM EDT POCT GLUCOSE FINGERSTICK Routine 11/11/2024 7:31 AM EDT CBC AND DIFFERENTIAL Routine 11/04/2024 12:06 PM EDT Right upper lobe pulmonary nodule MANUAL DIFFERENTIAL STAT 11/04/2024 1 2:06 PM EDT Right upper lobe pulmonary nodule CBC WITH AUTO DIFFERENTIAL Routine 11/04/2024 12:06 PM EDT Right upper lobe pulmonary nodule APTT Routine 11/04/2024 12:06 PM EDT Right upper lobe pulmonary nodule PROTIME-INR Routine 11/04/2024 12:06 PM EDT Right upper lobe pulmonary nodule COMPREHENSIVE METABOLIC PANEL Routine 11/04/2024 12:06 PM EDT Right upper lobe pulmonary nodule CT CHEST WO CONTRAST DIAGNOSTIC Routine 11/04/2024 11:33 AM EDT Right upper lobe pulmonary nodule SCANNED EKG 10/14/2024 CBC AND DIFFERENTIAL Routine 09/10/2024 9:31 AM EDT Churg-Britni syndrome PATHOLOGY CONSULTATION Routine 09/10/2024 9:31 AM EDT Churg-Britni syndrome MANUAL DIFFERENTIAL Routine 09/10/2024 9 :31 AM EDT Churg-Britni syndrome PATH CONSULT REFLEX Routine 09/10/2024 9 :31 AM EDT Churg-Britni syndrome CBC WITH AUTO DIFFERENTIAL Routine 09/10/2024 9:31 AM EDT Churg-Britni syndrome IGE Routine 09/10/2024 9:31 AM EDT Churg-Britni syndrome ANCA PANEL Routine 09/10/2024 9:31 AM EDT Churg-Britni syndrome CT CHEST WO CONTRAST DIAGNOSTIC Routine 08/27/2024 11:16 AM EDT Right upper lobe pulmonary nodule POCT GLYCOSYLATED HEMOGLOBIN (HGB A1C) Routine 08/12/2024 3:33 PM EDT Uncontrolled type 2 diabetes mellitus with hyperglycemia LIPID PANEL Routine 01/01/2022 Essential hypertension Dyslipidemia MICROALBUMIN / CREATININE URINE RATIO Routine 08/24/2020 11:44 AM EDT Uncontrolled type 2 diabetes mellitus with hyperglycemia from Last 3 Months or Most Recently Relevant to Health Maintenance Results * (ABNORMAL) POC Glucose Once (11/20/2024 10:44 AM EDT) Only the most recent of3 resultswithin the time period is included. Glucose 266(H) 70 - 130 mg/dL 11/20/2024 10:50 AM EDT [facility] Blood 11/20/2024 10:4 4 AM EDT 11/20/2024 10:50 AM EDT us Consuelo Arroyo MD POINT OF CARE TEST ORDER ERI Final Result [facility]
[address] [place] [address], * XR Chest 1 View (11/11/2024 8:53 AM EDT) Anatomical Region Laterality Modality Body N/A Radiographic Alaina ging 11/11/2024 9:28 AM EDT Impressions 11/11/2024 9:30 AM EDT Impression: 1.No definite pneumothorax. 2.Haziness right upper lobe which could relate to post bronchoscopy changes and known groundglass area of abnormality.. Electronically Signed: Taj Frazier MD 11/11/2024 9:30 AM EDT Workstation ID: [id number] Narrative 11/11/2024 9:30 AM EDT XR CHEST [...] MD 11/11/2024 9:30 AM EDT Workstation ID: [id number] Wayne Person MD [facility] DIAGNOSTIC IMAGING ORDERABLES Final Result * BAL Culture, Quantitative - Lavage, Lung, Right Upper Lobe (11/11/2024 8:17 AM EDT) BAL Culture No growth FRANNIE 11/13/2024 9:40 AM EDT [facility] Gram Stain Many (4+) Red blood cells 11/13/2024 9:40 AM EDT [facility] Gram Stain Rare (1+) WBCs seen 11/13/2024 9:40 AM EDT [facility] Gram Stain No organisms seen 11/13/2024 9:40 AM EDT [facility] Lavage Structure of upper lobe of right lung / Unknown 11/11/2024 8:17 AM EDT 11/11/2024 10:12 AM EDT us Wayne Person MD MICROBIOLOGY - GENERAL ORDERABLES Final Result Performing Organization Address City/[facility]/ZIP Co de Phone Number [facility]
[address] [phone], [facility]
[address] [place] [address], [place] [phone] * Fungus Smear - Lavage, Lung, Right Upper Lobe (11/11/2024 8:17 AM EDT) Fungal Stain No yeast or hyphal elements seen 11/12/2024 2:43 PM EDT [facility] Lavage Structure of upper lobe of right lung / Unknown 11/11/2024 8:17 AM EDT 11/11/2024 10:12 AM EDT us Wayne Person MD MICROBIOLOGY - GENERAL ORDERABLES Final Result Performing Organization Address [facility] de Phone Number [facility]
[address] [place] [address], * FL C Arm During Surgery (11/11/2024 8:15 AM EDT) Narrative SYSTEMGENERATED, DOCUMENTATION - 11/11/2024 8:26 AM EDT This procedure was auto-finalized with no dictation required. us Wyane Persno MD IMG FLUOROSCOPY ORDERAB LES Final Result * Tissue Pathology Exam (11/11/2024 8:08 AM EDT) Addendum PD-L1 (22C3) Tumor Proportion Score: <1%: No PD-L1 expression. PD-L1 (22C3) Combined Positive: 0. Testing performed at [facility]. See scanned report. 11/13/2024 2:58 PM EDT [facility] Addendum electronically signed by Kristofer Ghosh MD on 11/13/2024 at 1458 EDT Case Report Surgical Pathology Report Case: [id number] Authorizing Provider: Wayne Person MD Collected: 11/11/2024 08:08 AM Ordering Location: [facility] Received: 11/11/2024 10:10 AM ENDO SUITES Pathologist: Kristofer Ghosh MD Specimen: Lung, Right Upper Lobe, RUL TBBX for pathology 11/13/2024 2:58 PM EDT [facility] Clinical Information Right upper lobe pulmonary nodule 11/13/2024 2:58 PM EDT [facility] Final Diagnosis LUNG, RIGHT UPPER LOBE, TRANSBRONCHIAL BIOPSY: Pulmonary adenocarcinoma (see comment). 11/13/2024 2:58 PM EDT [facility] at 1152 EDT Comment Biopsies show [...] growth pattern noted. 11/13/2024 2:58 PM EDT [facility] Gross Description 1. Lung, Right Upper Lobe. Received in formalin labeled RUL TBBX for pathology and consists of multiple ambrose-pink soft tissue fragments measuring 1.8 x 0.5 x 0.2 cm in aggregate. The specimen is submitted entirely in cassette 1A. MJM 11/13/2024 2:58 PM EDT [facility] Microscopic Description The slides are reviewed and demonstrate histopathologic features supporting the above rendered diagnosis. 11/13/2024 2:58 PM EDT [facility] Tissue Structure of upper lobe of right lung / Unknown 11/11/2024 8:08 AM EDT 11/11/2024 10:10 AM EDT us Wayne Person MD PATHOLOGY/CYTOLOGY GUERA [facility]IS Edited Result - Final [facility]
[address] [place] [address], * NON-[facility] (RAJESH,COR,MAD,CARMEN) (11/11/2024 8:04 AM [...] correlation to determine if these findings are customer response representative or if additional sampling is indicated. [...] block has been examined. See other report ([id number]) See other report ([id number]) See other report ([id number]) 11/12/2024 2:08 PM EDT PATHOLOGY AND CYTOLOGY [...] EDT us Wayne Person MD PATHOLOGY/CYTOLOGY [facility] Final Result [facility]
[address] [place] [address], * BH AN ETT AIRWAY (11/11/2024 7:51 AM EDT) Narrative Christina Garza CRNA - 11/11/2024 7:51 AM EDT Christina Garza CRNA 11/11/2024 7:51 AM Airway Reason: elective Date/Time: 11/11/2024 7:48 AM Airway not difficult General Information and Staff Patient location during procedure: [place] SOIL SCIENTIST/CAA: Christina Garza CRNA Indications and Patient Condition [...] Dale MD ANESTHESIA ORDERABLES Final R esult * (ABNORMAL) CBC Auto Differential (11/04/2024 12:06 PM EDT) Only the most recent of2 resultswithin the time period is included. WBC 20.41(H) 3.40 - 10.80 10*3/mm3 11/04/2024 1:18 PM EDT [facility] RBC 4.14 3.77 - 5.28 10*6/mm3 11/04/2024 1:18 PM EDT [facility] Hemoglobin 11.0(L) 12.0 - 15.9 g/dL 11/04/2024 1:18 PM EDT [facility] Hematocrit 34.9 34.0 - 46.6 % 11/04/2024 1:18 PM EDT [facility] MCV 84.3 79.0 - 97.0 fL 11/04/2024 1:18 PM EDT [facility] MCH 26.6 26.6 - 33.0 pg 11/04/2024 1:18 PM EDT [facility] MCHC 31.5 31.5 - 35.7 g/dL 11/04/2024 1:18 PM EDT [facility] RDW 14.7 12.3 - 15.4 % 11/04/2024 1:18 PM EDT [facility] RDW-SD 45.0 37.0 - 54.0 fl 11/04/2024 1:18 PM EDT [facility] MPV 10.2 6.0 - 12.0 fL 11/04/2024 1:18 PM EDT [facility] Platelets 123(L) 140 - 450 10*3/mm3 11/04/2024 1:18 PM EDT [facility] Blood Venipuncture / Unknown 11/04/2024 12:06 PM EDT 11/04/2024 12:46 PM EDT Wayne Person MD LAB BLOOD ORDERABLES Fi nal Result [facility]
[address] [place] [address], * (ABNORMAL) Manual Differential (11/04/2024 12:06 PM EDT) Only the most recent of2 resultswithin the time period is included. Neutrophil % 18.0(L) 42.7 - 76.0 % 11/04/2024 1:18 PM EDT [facility] Lymphocyte % 69.0(H) 19.6 - 45.3 % 11/04/2024 1:18 PM EDT [facility] Monocyte % 2.0(L) 5.0 - 12.0 % 11/04/2024 1:18 PM EDT [facility] Eosinophil % 0.0(L) 0.3 - 6.2 % 11/04/2024 1:18 PM EDT [facility] Basophil % 0.0 0.0 - 1.5 % 11/04/2024 1:18 PM EDT [facility] Atypical Lymphocyte % 11.0(H) 0.0 - 5.0 % 11/04/2024 1:18 PM EDT [facility] Neutrophils Absolute 3.67 1.70 - 7.00 10*3/mm3 11/04/2024 1:18 PM EDT [facility] Lymphocytes Absolute 16.33(H) 0.70 - 3.10 10*3/mm3 11/04/2024 1:18 PM EDT [facility] Monocytes Absolute 0.41 0.10 - 0.90 10*3/mm3 11/04/2024 1:18 PM EDT [facility] Eosinophils Absolute 0.00 0.00 - 0.40 10*3/mm3 11/04/2024 1:18 PM EDT [facility] Basophils Absolute 0.00 0.00 - 0.20 10*3/mm3 11/04/2024 1:18 PM EDT [facility] RBC Morphology Normal Normal 11/04/2024 1:18 PM EDT [facility] WBC Morphology Normal Normal 11/04/2024 1:18 PM EDT [facility] Platelet Morphology Normal Normal 11/04/2024 1:18 PM EDT [facility] Blood Venipuncture / Unknown 11/04/2024 12:06 PM EDT 11/04/2024 12:46 PM EDT Wayne Person MD LAB BLOOD ORDERABLES Fi nal Result Performing Organization Address [facility] Co de Phone Number [facility]
[address] [place] [address], * APTT (11/04/2024 12:06 PM EDT) PTT 28.7 22.0 - 39.0 seconds 11/04/2024 1:02 PM EDT [facility] Blood Venipuncture / Unknown 11/04/2024 12:06 PM EDT 11/04/2024 12:46 PM EDT Narrative [facility] - 11/04/2024 1:02 PM EDT PTT = The equivalent PTT values for the therapeutic range of heparin levels at 0.3 to 0.5 U/ml are 60 to 70 seconds. Wayne Person MD LAB BLOOD ORDERABLES Fi nal Result Performing Organization Address [facility]/ZIP Co de Phone Number [facility]
[address] [place] [address], * (ABNORMAL) Protime-INR (11/04/2024 12:06 PM EDT) Protime 15.3 12.2 - 15.3 Seconds 11/04/2024 1:02 PM EDT [facility] INR 1.14(H) 0.89 - 1.12 11/04/2024 1:02 PM EDT [facility] Blood Venipuncture / Unknown 11/04/2024 12:06 PM EDT 11/04/2024 12:46 PM EDT us Wayne Person MD LAB BLOOD ORDERABLES Fi nal Result [facility]
[address] [place] [address], * (ABNORMAL) Comprehensive Metabolic Panel (11/04/2024 12:06 PM EDT) Glucose 248(H) 65 - 99 mg/dL 11/04/2024 1:11 PM EDT [facility] BUN 23.1(H) 8.0 - 23.0 mg/dL 11/04/2024 1:11 PM EDT [facility] Creatinine 1.20(H) 0.57 - 1.00 mg/dL 11/04/2024 1:11 PM EDT [facility] Sodium 136 136 - 145 mmol/L 11/04/2024 1:11 PM EDT [facility] Potassium 4.1 3.5 - 5.2 mmol/L 11/04/2024 1:11 PM EDT [facility] Chloride 103 98 - 107 mmol/L 11/04/2024 1:11 PM EDT [facility] CO2 22.7 22.0 - 29.0 mmol/L 11/04/2024 1:11 PM EDT [facility] Calcium 9.1 8.6 - 10.5 mg/dL 11/04/2024 1:11 PM EDT [facility] Total Protein 6.3 6.0 - 8.5 g/dL 11/04/2024 1:11 PM EDT [facility] Albumin 3.7 3.5 - 5.2 g/dL 11/04/2024 1:11 PM EDT [facility] ALT (SGPT) 55(H) 1 - 33 U/L 11/04/2024 1:11 PM EDT [facility] AST (SGOT) 41(H) 1 - 32 U/L 11/04/2024 1:11 PM EDT [facility] Alkaline Phosphatase 233(H) 39 - 117 U/L 11/04/2024 1:11 PM EDT [facility] Total Bilirubin 0.5 0.0 - 1.2 mg/dL 11/04/2024 1:11 PM EDT [facility] Globulin 2.6 gm/dL 11/04/2024 1:11 PM EDT [facility] Comment:Calculated Result A/G Ratio 1.4 g/dL 11/04/2024 1:11 PM EDT [facility] BUN/Creatinine Ratio 19.3 7.0 - 25.0 11/04/2024 1:11 PM EDT [facility] Anion Gap 10.3 5.0 - 15.0 mmol/L 11/04/2024 1:11 PM EDT [facility] eGFR 46.7(L) >60.0 mL/min/1.7 3 11/04/2024 1:11 PM EDT [facility] Blood Venipuncture / Unknown 11/04/2024 12:06 PM EDT 11/04/2024 12:46 PM EDT [facility] - 11/04/2024 1:11 PM EDT [...] does not include race as a factor Wayne Person MD LAB BLOOD ORDERABLES Fi nal Result Performing Organization Address City/State/[facility] Co de Phone Number [facility]
[address] [place] [address], * CT Chest Without Contrast Diagnostic (11/04/2024 11:33 AM EDT) Only the most recent of2 resultswithin the time period is included. Anatomical Region Laterality Modality Chest N/A Computed [...] MD 11/08/2024 2:09 PM EDT Workstation ID: [id number] Narrative 11/08/2024 2:[address] CHEST [...] osseous lesion or acute fracture. Procedure Note Amari Boston MD - 11/08/2024 CT CHEST WO CONTRAST [...] at the leftupper lobe measuring 7 mm (). This is stable from 2022. Mild linearatelectasis [...] MD 11/08/2024 2:09 PM EDT Workstation ID: [id number] us Wayne Person MD IMG CT ORDERABLES Final Result * ECG Scan (10/14/2024) us Hima Gonzalez MD ECG ORDERABLES Final Result * Path Consult Reflex (09/10/2024 9:31 AM EDT) Pathology Review Yes 09/10/2024 7:10 PM EDT [facility] Blood Venipuncture / Unknown 09/10/2024 9:31 AM EDT 09/10/2024 9:31 AM EDT us Lynda Durham APRN LAB BLOOD ORDERABLES Final R esult [facility]
[address] [place] [address], * Pathology Consultation (09/10/2024 9:31 AM EDT) Final Diagnosis 1. Peripheral blood smear review: - Leukocytosis with absolute atypical lymphocytosis Comment: There is a leukocytosis with absolute atypical lymphocytosis. The degree of morphology of the lymphocytosis would favor a lymphoproliferative process such as chronic lymphocytic leukemia. According to the patient's history the patient has a known diagnosis of chronic lymphocytic leukemia. These findings are consistent with that diagnosis. 09/11/2024 7:06 AM EDT [facility] at 0706 EDT Case Report Surgical Pathology Report Case: [id number] Authorizing Provider: Lynda Durham APRN Collected: 09/10/2024 09:31 AM Ordering Location: [facility] Received: 09/10/2024 07:10 PM [facility] Pathologist: Irving Deluca MD Specimen: Blood, Venous Line, peripheral blood smear 09/11/2024 7:06 AM EDT [facility] Blood Venous blood specimen / Unknown Venipuncture / Unknown 09/10/2024 9:31 AM EDT 09/10/2024 7:10 PM EDT Lynda Yeung Herminio KJ PATHOLOGY/CYTOLOGY ORDERABLE S Final Result [facility]
[address] [place] [address], * ANCA Panel (09/10/2024 9:31 AM EDT) Pathologist [facility] ANTI-MPO ANTIBODIES <0.2 0.0 - 0.9 units 09/14/2024 7:09 PM EDT [facility] ANTI-PR3 ANTIBODIES <0.2 0.0 - 0.9 units 09/14/2024 7:09 PM EDT [facility] C-ANCA <1:20 Neg:<1:20 titer 09/14/2024 7:09 PM EDT [facility] P-ANCA <1:20 Neg:<1:20 titer 09/14/2024 7:09 PM EDT [facility] Comment: The presence of positive fluorescence exhibiting P-ANCA or C-ANCA patterns alone is not specific for the diagnosis of Elenita's Granulomatosis (WG) or microscopic polyangiitis. Decisions about treatment should not be based solely on ANCA IFA results. The [employer] ANCA [employer] Consensus recommends follow up testing of positive sera with both KS-3 and MPO-ANCA enzyme immunoassays. As many as 5% serum samples are positive only by EIA. Ref. AM J Clin Pathol 1999;111:507-513. Atypical pANCA <1:20 Neg:<1:20 titer 09/14/2024 7:09 PM EDT [facility] Comment: The atypical pANCA pattern has been observed in a significant percentage of patients with ulcerative colitis, primary sclerosing cholangitis and autoimmune hepatitis. Blood Venipuncture / Unknown 09/10/2024 9:31 AM EDT 09/10/2024 9:31 AM EDT Narrative [facility] - 09/14/2024 7:09 PM EDT Performed at: [address] [id number] Mohs Surgeon: Elena Watters MD, Phone: [phone] Performed at: [address] [id number] Moh[place] Surgeon: Hema Sharp PhD, Phone: [phone] Lynda Durham APRN LAB BLOOD ORDERABLES Final R esult Performing Organization Address [facility] Co de Phone Number [facility] [address] [place] [address], * (ABNORMAL) IgE (09/10/2024 9:31 AM EDT) IgE 507(H) 6 - 495 IU/mL 09/14/2024 4:11 PM EDT [facility] Blood Venipuncture / Unknown 09/10/2024 9:31 AM EDT 09/10/2024 9:31 AM EDT Narrative [facility] - 09/14/2024 4:11 PM EDT Performed at: [address] [id number] Mohs Surgeon: Elena Watters MD, Phone: [phone] Lynda Durham APRN LAB BLOOD ORDERABLES Final R esult Performing Organization Address [facility] Co de Phone Number [facility] [address] [place] [address], * (ABNORMAL) POC Glycosylated Hemoglobin (Hb A1C) (08/12/2024 3:33 PM EDT) Hemoglobin A1C 7.8(A) 4.5 - 5.7 % [facility] Lot Number [id number] [facility] Expiration Date 04/24/2026 [facility] Blood 08/12/2024 3:33 PM EDT Ahsan Alonso MD POINT OF CARE TEST ORD ERABLES Final Result Performing Organization Address [facility]/ZIP Co de Phone Number [facility]
[address] [place] [address], [place] [phone] * Lipid Panel (01/01/2022) Blood Hima Gonzalez MD LAB BLOOD ORDERABLES Final Res ult Performing Organization Address City/[facility]/ZIP Co de Phone Number [facility] * Microalbumin / Creatinine Urine Ratio - (08/24/2020 11:44 AM EDT) Creatinine, Urine 41.5 Not Estab. mg/dL [facility] Microalbumin, Urine 4.2 Not Estab. ug/mL [facility] Microalbumin/Cre atinine Ratio 10 0 - 29 mg/g creat [facility] Comment: Normal: 0 - 29 Moderately increased: 30 - 300 Severely increased: >300 Blood 08/24/2020 11:4 4 AM EDT 08/24/2020 Comment:BLOOD RELEASE TO PAT I Narrative [facility] - 08/25/2020 10:36 AM EDT Performed at: 02 - [facility] [id number] Moh[place] Surgeon: Hema Sharp PhD, Phone: [phone] Ahsan Alonso MD URINE ORDERABLES Final Result Performing Organization Address City/[facility]/ZIP Co de Phone Number [facility]) [address] [place] [address], [place] [phone] [facility] [address] [place] [address], [place] [phone] from Last 3 Months or Most Recently Relevant to Health Maintenance [place] [address] [employer] PPO Care Teams Systems Accountant Relationship Specialty Start Date End Date Consuelo Arroyo MD [address] [place] [address] PCP - General Internal Medicine 02/13/18
[2024-11-24] MEDS: HYDROCODONE/APAP 5/325 MG TABLET 2 TAB PO (19:01)
[2024-11-24] MEDS: ONDANSETRON 4MG ODT 4 MG SL (19:01)
[2024-11-24 20:00] VITALS: BP 135/61; PULSE 78; RESP 18; TEMP 36.6; O2SAT 100
--- NOTE | 2024-11-24 20:28 | XR_ITS ---
PROCEDURE INFORMATION: Exam: XR Left Elbow Exam date and time: 11/24/2024 8:31 PM Age: 79 years old Clinical indication: Injury or trauma; Fall; Other: Elbow relocation TECHNIQUE: Imaging protocol: Radiologic exam of the left elbow. Views: 1 or 2 views. COMPARISON: CR XR ELBOW LT MIN 3V 11/24/2024 6:05 PM FINDINGS: Bones/joints: Interval improvement in posterior dislocation of the elbow. Redemonstration of comminuted and displaced proximal ulna metadiaphyseal fracture. Displaced radial neck fracture with the radial head projecting in the elbow joint. Large elbow effusion. Soft tissues: Marked soft tissue swelling. IMPRESSION: 1. Interval improvement in posterior dislocation of the elbow. 2. Redemonstration of comminuted and displaced proximal ulna metadiaphyseal fracture. 3. Displaced radial neck fracture with the radial head projecting in the elbow joint.
--- NOTE | 2024-11-24 20:45 | CT_ITS ---
PROCEDURE INFORMATION: Exam: CT Left Upper Extremity Without Contrast, Elbow Exam date and time: 11/24/2024 9:54 PM Age: 79 years old Clinical indication: Injury or trauma; Fall; Other: Pain; Additional info: S/P reduction left elbow dislocation TECHNIQUE: Imaging protocol: Computed tomography of the left upper extremity without contrast. Exam focused on the elbow. Radiation optimization: All CT scans at this facility use at least one of these dose optimization techniques: automated exposure control; mA and/or kV adjustment per patient size (includes targeted exams where dose is matched to clinical indication); or iterative reconstruction. COMPARISON: CR XR ELBOW LT 2V 11/24/2024 8:31 PM FINDINGS: Bones/joints: Moderately comminuted and mildly displaced fracture of the proximal ulnar metadiaphysis. There is a component extending through the coronoid process as well. Moderate to large lipohemarthrosis of the elbow. Displaced radial neck fracture with rotation of the radial head. The radial head is located along the lateral aspect of the capitulum. There is irregularity of the lateral epicondyle and capitellum of the humerus that may represent nondisplaced fracture. Olecranon process enthesophyte. Soft tissues: Marked swelling around the elbow. IMPRESSION: 1. Moderately comminuted and mildly displaced fracture of the proximal ulnar metadiaphysis. There is a component extending through the coronoid process as well. This could represent an oblique-distal type fracture. 2. Displaced radial neck fracture with rotation of the radial head. The radial head is located along the lateral aspect of the capitulum. 3. There is irregularity of the lateral epicondyle and capitellum of the humerus that may represent nondisplaced fracture.
[2024-11-24 21:00] VITALS: BP 127/80; PULSE 77; RESP 16; TEMP 36.6; O2SAT 100
--- NOTE | 2024-11-24 21:00 | PC.NURSE ---
pt stopped breathing during procedure at 2030 after fentanyl given at 2028. pt bagged on 15 L for appox 40 seconds. pt then put on a nonrebreather, splint applied and arm sling on patient. pt is awake, and alert at 2048 and is on 2 L via nasal canula
[2024-11-24] MEDS: OXYCODONE 5MG IMMEDIATE RELEASE TABLET 5 MG PO (21:48)
[2024-11-24 22:00] VITALS: BP 135/61; PULSE 78; RESP 18; TEMP 36.4; O2SAT 100
[2024-11-24 22:09] VITALS: BP 130/69; PULSE 87; RESP 22; TEMP 36.7; O2SAT 98
== END 2024-11-24 22:14 | disposition home or self-care (01) ==
PROVIDERS: Emergency Provider Student in an Organized Health Care Education/Training Program
DX: S52.252A Displaced comminuted fracture of shaft of ulna, left arm, initial encounter for closed fracture (principal); S52.132A Displaced fracture of neck of left radius, initial encounter for closed fracture; S53.125A Posterior dislocation of left ulnohumeral joint, initial encounter; R09.02 Hypoxemia; W01.10XA Fall on same level from slipping, tripping and stumbling with subsequent striking against unspecified object, initial encounter
CPT/HCPCS: 29105; 73030; 73070; 73080; 73090; 73110; 73130; 73200; 99285; J2704; Q0162

== ENCOUNTER 2025-01-04 10:00 | Outpatient (RCR) | payer MEDICARE, SELFPAY | END 2025-01-04 23:59 | disposition home or self-care (01) | LOC: PT.CARL 10:00 | PROVIDERS: Visit Provider Orthopaedic Surgery | DX: S42.402D Unspecified fracture of lower end of left humerus, subsequent encounter for fracture with routine healing (principal) | CPT/HCPCS: 97110; 97140; 97163 ==

== ENCOUNTER 2025-02-03 13:00 | Outpatient (RCR) | payer MEDICARE, SELFPAY | END 2025-02-03 23:59 | disposition home or self-care (01) | LOC: PT.CARL 13:00 | PROVIDERS: Visit Provider Orthopaedic Surgery | DX: S42.402D Unspecified fracture of lower end of left humerus, subsequent encounter for fracture with routine healing (principal) | CPT/HCPCS: 97110; 97140; 97530 ==

== ENCOUNTER 2025-03-02 13:00 | Outpatient (RCR) | payer MEDICARE, SELFPAY | END 2025-03-02 23:59 | disposition home or self-care (01) | LOC: PT.CARL 13:00 | PROVIDERS: Visit Provider Orthopaedic Surgery | DX: S42.402D Unspecified fracture of lower end of left humerus, subsequent encounter for fracture with routine healing (principal) | CPT/HCPCS: 97110; 97140; 97530 ==